=== PATIENT | female | born 1975 | race African-American/Black ===

== ENCOUNTER 2020-01-29 20:04 | Emergency (ER) | payer OTHER, SELFPAY ==
[2020-01-29 20:09] VITALS: BP 127/113; PULSE 77; RESP 16; TEMP 36.7; O2SAT 89
--- NOTE | 2020-01-29 20:16 | PC.NURSE ---
Pt placed on 2L N.C due to low O2.
[2020-01-29 20:20] VITALS: PULSE 94; RESP 18; TEMP 36.9; O2SAT 98
--- NOTE | 2020-01-29 20:26 | ED.EXTPRO ---
HPI - Extremity Problem General Chief complaint: Extremity Problem,Nontraumatic Stated complaint: edwin horse Time Seen by Provider: 01/29/20 20:25 Source: patient Mode of arrival: EMS Limitations: no limitations History of Present Illness HPI Narrative: Pt is a 44 y/o female who presents to the ED, via EMS, with c/o having charley horses that began earlier this afternoon. Pt states that she had a gastric bypass done years ago and has since been seen for this same issue which has contributed to hypokalemia. Pt denies taking any medications for her sx. Pt also reports nausea, but denies fever, chills, abdominal pain, diarrhea, and a cough. Complaint: extremity pain Onset (ago): hour(s) Pain Consistency: constant Location: left, right and lower extremity Relieving factors: nothing Associated symptoms: other (nausea) Related Data Allergies Allergy/AdvReac Type Severity Reaction Status Date / Time No Known Allergies Allergy Verified 01/29/20 20:13 Review of Systems Review of Systems: All systems reviewed & are unremarkable except as noted in HPI and below Constitutional: Constitutional: Denies chills and Denies fever(s) Respiratory: Respiratory: Denies cough Gastrointestinal: Gastrointestinal: Denies abdominal pain, Denies diarrhea and Reports nausea Musculoskeletal: Musculoskeletal: Reports muscle cramps (in BLE) PMFSH Past Medical History Medical History (Updated 01/30/20 @ 01:06 by Chuck Montoya MD) Anemia Anxiety Eczema Gallbladder disease Gallstones HTN (hypertension) Influenza B Migraines UTI (urinary tract infection) Surgical History Surgical History (Updated 01/29/20 @ 20:46 by Kylie Murphy) Hx of cholecystectomy Hx of gastric bypass x2 Hx of tonsillectomy Family History Family History (Updated 01/29/20 @ 20:47 by Kylie Murphy) Mother Hypertension Diabetes mellitus Cancer Father Diabetes mellitus Hypertension Sibling Hypertension Social History Social History Smoking status: Never smoker Gender identity (if verbalized by the patient): Female Exam Narrative: Exam Narrative: GENERAL: Well-appearing, well-nourished, and in no acute distress. HEAD: Normocephalic, atraumatic. EYES: PERRLA and EOMI. ENT: Nares clear, Mucous membranes moist. NECK: Supple. CHEST: Clear to auscultation. No respiratory distress. HEART: Regular rate and rhythm. No murmur heard. Normal peripheral pulses. ABDOMEN: Soft, nontender, nondistended, normal active bowel sounds. EXTREMITIES: Normal range of motion. No edema. SKIN: Warm, dry, no rash. NEURO: No focal deficits. Alert and oriented x3. PSYCH: Normal mood and affect. Course Course Emergency Course: Inform patient about her lab work. We will give her IV potassium. Advised her to continue home medication, follow-up with the primary doctor. Vital Signs Vital signs: Vital Signs Temperature 36.7 C 01/29/20 20:09 Pulse Rate 77 01/29/20 20:09 Respiratory Rate 16 01/29/20 20:09 Blood Pressure 127/113 H 01/29/20 20:09 Pulse Oximetry 89 L 01/29/20 20:09 Temperature 36.9 C 01/29/20 20:20 Pulse Rate 94 01/29/20 20:20 Respiratory Rate 18 01/29/20 20:20 Blood Pressure 127/113 H 01/29/20 20:09 Pulse Oximetry 98 01/29/20 20:20 MDM - Extremity (Nontraumatic) Lab Data Result diagrams: 01/29/20 20:56 01/29/20 20:56 Labs: Lab Results 01/29/20 01/29/20 Range/Units 20:56 20:56 WBC 4.9 (4.5-10.0) K/mm3 RBC 3.77 L (4.2-5.4) M/mm3 Hgb 9.4 L (12.0-15.0) g/dL Hct 30.6 L (37.0-47.0) % MCV 81.2 (80-100) fl MCH 24.9 L (26-34) pg MCHC 30.7 L (32-36) g/dl RDW 22.3 H (11.5-14.5) % Plt Count 276 (150-375) k/mm3 MPV 8.5 (7.4-10.4) fl Immature Gran % (Auto) 0.6 H (0-0.5) % Neut % (Auto) 71.8 (45.5-73.1) % Lymph % (Auto) 19.5 (18.3-44.2) % [place] % (Auto) 6.5 (2.6-8.5) % Eos % (Auto) 0.0 (0-4.4) % Baso % (Auto
[2020-01-29 21:01] LABS: Basophils Absolute Auto 0.1 K/mm3 (0.0-0.1); Basophils Percent Auto 1.6 % (0.2-1.2); Hematocrit 30.6 % (37.0-47.0); Hemoglobin 9.4 g/dL (12.0-15.0); Immature Granulocyte Absolute 0.03 K/mm3 (0.00-0.031); Immature Granulocyte Percent A 0.6 % (0-0.5); Lymphocytes Absolute Auto 0.96 K/mm3 (0.9-3.2); Lymphocytes Percent Auto 19.5 % (18.3-44.2); Mean Corpuscular HGB Conc 30.7 g/dl (32-36); Mean Corpuscular Hemoglobin 24.9 pg (26-34); Mean Corpuscular Volume 81.2 fl (80-100); Mean Platelet Volume 8.5 fl (7.4-10.4); Monocytes Absolute Auto 0.3 K/mm3 (0.1-0.6); Monocytes Percent Auto 6.5 % (2.6-8.5); Neutrophils Absolute Auto 3.5 K/mm3 (1.3-6.7); Neutrophils Percent Auto 71.8 % (45.5-73.1); Platelet Count Result 276 k/mm3 (150-375); Red Blood Count 3.77 M/mm3 (4.2-5.4); Red Cell Distribution Width 22.3 % (11.5-14.5); White Blood Count 4.9 K/mm3 (4.5-10.0)
[2020-01-29 21:16] LABS: Blood Urea Nitrogen 3 mg/dL (7-17); Calcium 8.1 mg/dL (8.4-10.2); Carbon Dioxide 22 mmol/L (22-30); Chloride 96 mmol/L (98-107); Estimated CRCL calculation 124 ml/min; Estimated Glomerular Filt Rate > 60; Glucose 88 mg/dL (65-105); Potassium 2.8 mmol/L (3.4-5.0); Sodium 137 mmol/L (137-145)
[2020-01-29] MEDS: POTASSIUM CHLORIDE 20 MEQ PACKET (FOR LIQUID) 40 MEQ PO (21:54)
--- NOTE | 2020-01-29 22:02 | PC.NURSE ---
notified of new onset of headache.
[2020-01-30] MEDS: ONDANSETRON INJ 4 MG/2 ML VIAL IV PUSH (00:29)
== END 2020-01-30 02:07 | disposition home or self-care (01) ==
PROVIDERS: Emergency Provider Family Medicine; PCP Family Medicine
DX: E87.6 Hypokalemia (principal); D64.9 Anemia, unspecified; I10 Essential (primary) hypertension; Z87.440 Personal history of urinary (tract) infections; Z98.84 Bariatric surgery status
CPT/HCPCS: 36415; 80048; 83735; 85025; 96365; 96366; 96375; 99284; A9270; J2405; J3480

== ENCOUNTER 2020-07-20 15:03 | Emergency (ER) | payer OTHER, SELFPAY ==
[2020-07-20 15:06] VITALS: BP 133/90; PULSE 83; RESP 18; TEMP 36.6; O2SAT 99
--- NOTE | 2020-07-20 15:32 | ECG_ITS ---
Measurements Intervals [place] Rate: 77 P: 50 DE: 136 QRS: -6 QRSD: 86 T: 37 QT: 425 QTc: 481 Interpretive Statements SINUS RHYTHM BORDERLINE ST ABNORMALITY- ANTEROLAT/INF LEADS BASELINE WANDER- I, II, AVR BORDERLINE ECG Electronically Signed On 07-20-2020 16:59:17 CDT by Alan Chavez D.O.
[2020-07-20 15:51] LABS: Basophils Absolute Auto 0.1 K/mm3 (0.0-0.1); Basophils Percent Auto 0.9 % (0.2-1.2); Eosinophils Absolute Auto 0.1 K/mm3 (0-0.3); Eosinophils Percent Auto 0.9 % (0-4.4); Hematocrit 38.7 % (37.0-47.0); Hemoglobin 11.5 g/dL (12.0-15.0); Immature Granulocyte Absolute 0.03 K/mm3 (0.00-0.031); Immature Granulocyte Percent A 0.3 % (0-0.5); Lymphocytes Absolute Auto 3.17 K/mm3 (0.9-3.2); Lymphocytes Percent Auto 31.3 % (18.3-44.2); Mean Corpuscular HGB Conc 29.7 g/dl (32-36); Mean Corpuscular Hemoglobin 22.9 pg (26-34); Mean Corpuscular Volume 77.1 fl (80-100); Mean Platelet Volume 10.3 fl (7.4-10.4); Monocytes Absolute Auto 0.9 K/mm3 (0.1-0.6); Monocytes Percent Auto 9.1 % (2.6-8.5); Neutrophils Absolute Auto 5.8 K/mm3 (1.3-6.7); Neutrophils Percent Auto 57.5 % (45.5-73.1); Platelet Count Result 444 k/mm3 (150-375); Red Blood Count 5.02 M/mm3 (4.2-5.4); Red Cell Distribution Width 16.4 % (11.5-14.5); White Blood Count 10.1 K/mm3 (4.5-10.0)
[2020-07-20] MEDS: ONDANSETRON INJ 4 MG/2 ML VIAL IV PUSH (15:59)
[2020-07-20] MEDS: SODIUM CHLORIDE 0.9% IV 1,000 ML 999 ML IV CONT (15:59)
[2020-07-20 16:02] LABS: Alanine Aminotransferase 12 U/L (4-35); Albumin Level 4.3 g/dL (3.5-5.1); Alkaline Phosphatase 75 U/L (38-126); Anion Gap 19 mmol/L (8-16); Aspartate Amino Transferase 35 U/L (14-36); Blood Urea Nitrogen 29 mg/dL (7-17); Calcium 9.4 mg/dL (8.4-10.2); Carbon Dioxide 24 mmol/L (22-30); Chloride 95 mmol/L (98-107); Estimated CRCL calculation 63 ml/min; Estimated Glomerular Filt Rate > 60; Glucose 74 mg/dL (65-105); Lipase 49 U/L (23-300); Potassium 2.9 mmol/L (3.4-5.0); Sodium 138 mmol/L (137-145)
[2020-07-20 16:30] LABS: Add Urine Microscopic? YES; Appearance Urine Clear (Clear); Bilirubin Urine Negative (Negative); Blood Urine Negative (Negative); Color Urine Yellow (Yellow); Glucose Urine UA Negative (Negative); Ketones Urine 2+ mg/dL (Negative); Leukocyte Esterase Ur Negative LEU/UL (Negative); Mucus Urine Few /lpf; Nitrate Urine Negative (Negative); Protein Urine 1+ mg/dL (Negative); Specific Grav Ur 1.023 (1.001-1.035); Squamous Epithelial Cell Urine Many /hpf (Few)
--- NOTE | 2020-07-20 16:56 | ED.DIZZY ---
HPI - Dizziness General Chief Complaint: Dizziness Stated Complaint: n/v/dizziness Time Seen by Provider: 07/20/20 15:08 Source: patient Mode of arrival: ambulatory Limitations: no limitations History of Present Illness HPI Narrative: 45-year-old with a history of hypertension, anxiety disorder here with complaints of feeling extremely weak and dizzy for past few days. Patient states that she is unable to keep fluids down. She denies any abdominal pain or diarrhea. No history of fever or chills. Denies any COVID exposure. Patient states that she has history of low potassium and anytime it happens she feels extremely weak. MD elicited complaint: other (Feeling weak) Exacerbating factors: nothing Relieving factors: nothing Associated symptoms: nausea and vomiting Related Data Home Medications Medication Instructions Recorded Confirmed ergocalciferol (vitamin D2) 07/20/20 fluoxetine mg 07/20/20 lisinopril 07/20/20 Allergies Allergy/AdvReac Type Severity Reaction Status Date / Time No Known Allergies Allergy Verified 07/20/20 15:09 Review of Systems Review of Systems: All systems reviewed & are unremarkable except as noted in HPI and below Constitutional: Constitutional: Reports as per HPI Eyes: Eyes: Reports as per HPI ENT: Reports system reviewed and no additional complaints, except as documented Cardiovascular: Cardiovascular: Reports no additional cardiovascular complaints Respiratory: Respiratory: Reports as per HPI Gastrointestinal: Gastrointestinal: Reports no additional gastrointestinal complaints Musculoskeletal: Musculoskeletal: Reports no additional musculoskeletal complaints PMFSH Past Medical History Medical History Anemia Anxiety Eczema Gallbladder disease Gallstones HTN (hypertension) Influenza B Migraines UTI (urinary tract infection) Surgical History Surgical History Hx of cholecystectomy Hx of gastric bypass x2 Hx of tonsillectomy Family History Family History Mother Hypertension Diabetes mellitus Cancer Father Diabetes mellitus Hypertension Sibling Hypertension Social History Social History Smoking status: Never smoker Gender identity (if verbalized by the patient): Female Exam Narrative: Exam Narrative: GENERAL: Well-appearing, well-nourished, and in no acute distress. HEAD: Normocephalic, atraumatic. EYES: PERRLA and EOMI. ENT: Nares clear, no rhinorrhea or epistaxis. Mucous membranes moist. NECK: Supple. CHEST: Clear to auscultation. No respiratory distress. HEART: Regular rate and rhythm. No murmur heard. Normal peripheral pulses. ABDOMEN: Soft, nontender, nondistended, normal active bowel sounds. EXTREMITIES: Normal range of motion. No edema. SKIN: Warm, dry, no rash. NEURO: No focal deficits. Alert and oriented x3. PSYCH: Normal mood and affect. Course Vital Signs Vital signs: Vital Signs Temperature 36.6 C 07/20/20 15:06 Pulse Rate 83 07/20/20 15:06 Respiratory Rate 18 07/20/20 15:06 Blood Pressure 133/90 07/20/20 15:06 Pulse Oximetry 99 07/20/20 15:06 Temperature 36.6 C 07/20/20 15:06 Pulse Rate 83 07/20/20 15:06 Respiratory Rate 18 07/20/20 15:06 Blood Pressure 133/90 07/20/20 15:06 Pulse Oximetry 99 07/20/20 15:06 MDM - Dizziness MDM Narrative Medical decision making narrative: With a history of hypokalemia, and nausea vomiting and elect to do CBC chemistry give her fluids and Zofran for nausea. Differential Diagnosis Differential diagnosis: Likely orthostatic hypotension Lab Data Result diagrams: 07/20/20 15:44 07/20/20 15:44 Labs: Lab Results 07/20/20 07/20/20 07/20/20 Range/Units 15:44 15:44 16:20 WBC 10.1 H (4.5-10.0) K/mm3
[2020-07-20] MEDS: KCL 20 MEQ/SW 100 ML 100 ML 50 MEQ IVPB (17:14)
[2020-07-20] MEDS: POTASSIUM CHLORIDE 20 MEQ PACKET (FOR LIQUID) 40 MEQ PO (17:15)
[2020-07-20 19:12] VITALS: BP 137/88; PULSE 71; RESP 19; O2SAT 98
[2020-07-20 19:28] VITALS: BP 127/88; PULSE 79; RESP 19; TEMP 36.2; O2SAT 100
== END 2020-07-20 19:29 | disposition home or self-care (01) ==
PROVIDERS: Emergency Provider Family Medicine; PCP Family Medicine
DX: E87.6 Hypokalemia (principal); R11.2 Nausea with vomiting, unspecified; I10 Essential (primary) hypertension; F41.9 Anxiety disorder, unspecified; D64.9 Anemia, unspecified; Z87.440 Personal history of urinary (tract) infections; Z98.84 Bariatric surgery status; R94.31 Abnormal electrocardiogram [ECG] [EKG]
CPT/HCPCS: 36415; 80053; 81001; 83690; 85025; 87086; 87088; 93005; 96361; 96365; 96366; 96375; 99284; A9270; J2405; J3480; J7030

== ENCOUNTER 2020-07-23 12:56 | Observation (INO) | payer OTHER, SELFPAY ==
[2020-07-23] VITALS (8 sets, daily range): BP systolic 77–123; BP diastolic 51–87; PULSE 72–102; RESP 17–20; TEMP 36.2–36.8; O2SAT 96–100; BMI 25.2
--- NOTE | ~2020-07-23 | XR_ITS ---
XR abdomen/kub 1V 07/23/2020 21:59 INDICATION: Intractable abdominal pain. TECHNIQUE: KUB COMPARISON: 06/21/2016 FINDINGS: Bowel gas pattern is normal. There are surgical changes in the upper abdomen. There is no e vidence of free air, mass, organomegaly, ascites or obstruction. No abnormal calculi are seen. The bones appear intact. IMPRESSION: 1: No acute abdominal abnormality identified. Reviewed, dictated and finalized at location A.
--- NOTE | ~2020-07-23 | XR_ITS ---
EXAMINATION: XR chest 2V EXAM DATE: 07/23/2020 13:51 INDICATION: Weakness and vomiting. TECHNIQUE: Frontal and lateral projections of the chest obtained and reviewed. There is no prior charles dy for comparison. FINDINGS: The lungs are clear. There are no pleural effusions. The cardiomediastinal silhouette is within normal limits. There is no pneumothorax suspected. The bones and soft tissues are unremarkab le. There are cholecystectomy clips. IMPRESSION: No acute cardiopulmonary findings. Reviewed, dictated and finalized at location A.
--- NOTE | 2020-07-23 13:18 | ECG_ITS ---
Measurements Intervals [place] Rate: 90 P: 61 MO: 104 QRS: 23 QRSD: 101 T: 57 QT: 425 QTc: 520 Interpretive Statements SINUS RHYTHM WITH SHORT MO INTERVAL BORDERLINE ST ABNORMALITY- ANTEROLAT/INF LEADS PROLONGED QT INTERVAL ABNORMAL ECG Electronically Signed On 07-23-2020 13:43:00 CDT by Alan Chavez D.O.
[2020-07-23 13:38] LABS: Basophils Absolute Auto 0.1 K/mm3 (0.0-0.1); Eosinophils Percent Auto 0.3 % (0-4.4); Hematocrit 40.8 % (37.0-47.0); Hemoglobin 12.4 g/dL (12.0-15.0); Immature Granulocyte Absolute 0.03 K/mm3 (0.00-0.031); Immature Granulocyte Percent A 0.3 % (0-0.5); Lymphocytes Absolute Auto 3.23 K/mm3 (0.9-3.2); Lymphocytes Percent Auto 30.9 % (18.3-44.2); Mean Corpuscular HGB Conc 30.4 g/dl (32-36); Mean Corpuscular Hemoglobin 23.4 pg (26-34); Mean Corpuscular Volume 76.8 fl (80-100); Mean Platelet Volume 10.4 fl (7.4-10.4); Monocytes Absolute Auto 0.6 K/mm3 (0.1-0.6); Monocytes Percent Auto 5.8 % (2.6-8.5); Neutrophils Absolute Auto 6.4 K/mm3 (1.3-6.7); Neutrophils Percent Auto 61.7 % (45.5-73.1); Platelet Count Result 559 k/mm3 (150-375); Red Blood Count 5.31 M/mm3 (4.2-5.4); Red Cell Distribution Width 16.7 % (11.5-14.5); White Blood Count 10.4 K/mm3 (4.5-10.0)
[2020-07-23] MEDS: SODIUM CHLORIDE 0.9% IV 1,000 ML 999 ML (13:39)
[2020-07-23 13:51] LABS: Alanine Aminotransferase 14 U/L (4-35); Albumin Level 4.5 g/dL (3.5-5.1); Alkaline Phosphatase 79 U/L (38-126); Anion Gap 21 mmol/L (8-16); Aspartate Amino Transferase 36 U/L (14-36); Blood Urea Nitrogen 35 mg/dL (7-17); Calcium 9.9 mg/dL (8.4-10.2); Carbon Dioxide 22 mmol/L (22-30); Chloride 98 mmol/L (98-107); Estimated CRCL calculation 41 ml/min; Estimated Glomerular Filt Rate 50; Glucose 107 mg/dL (65-105); Potassium 3.2 mmol/L (3.4-5.0); Sodium 141 mmol/L (137-145)
--- NOTE | 2020-07-23 14:15 | ED.WEAKNESS ---
HPI - Weakness General Chief complaint: Weakness Stated complaint: near syncope Time Seen by Provider: 07/23/20 13:36 History of Present Illness HPI Narrative: Patient is a 45-year-old female who presents ER with weakness. Patient reports she has been vomiting over the last week. Has history of gastric bypass that causes her to have recurrent hypokalemia. Patient was seen in the ER couple days ago with a potassium of 2.9 received supplementation. Patient reports she still cannot keep food or water down. She became very fatigued at work and thought she may collapse. Related Data Home Medications Medication Instructions Recorded Confirmed ergocalciferol (vitamin D2) 1,250 mcg PO WEEKLY 07/20/20 07/23/20 fluoxetine 10 mg PO DAILY 07/20/20 07/23/20 lisinopril 10 mg PO DAILY 07/20/20 07/23/20 omeprazole 20 mg PO DAILY 07/23/20 07/23/20 Allergies Allergy/AdvReac Type Severity Reaction Status Date / Time No Known Allergies Allergy Verified 07/23/20 13:16 Review of Systems Review of Systems: All systems reviewed & are unremarkable except as noted in HPI and below Constitutional: Constitutional: Denies chills, Denies fever(s) and Reports weakness ENT: Denies nasal congestion and Denies sore throat Cardiovascular: Cardiovascular: Denies chest pain and Denies radiating jaw, neck or arm pain Respiratory: Respiratory: Denies cough, Denies dyspnea and Denies wheezing Gastrointestinal: Gastrointestinal: Denies abdominal pain, Denies constipation, Denies diarrhea, Reports nausea and Reports vomiting Neurologic: Denies focal weakness and Denies numbness PMFSH Family History Family History (Updated 07/23/20 @ 17:06 by Ivette Hastings RN) Mother Diabetes mellitus Cancer Hypertension Colon cancer Father Diabetes mellitus Hypertension FH: CABG (coronary artery bypass surgery) Sibling Hypothyroid Hypertension Social History Social History Smoking status: Never smoker Alcohol intake: never Substance use: never Gender identity (if verbalized by the patient): Female Spiritual care concerns: No Exam Narrative: Exam Narrative: GENERAL: Well-appearing, well-nourished, and in no acute distress. HEAD: Normocephalic, atraumatic. ENT: Mucous membranes moist. CHEST: Clear to auscultation. No respiratory distress. HEART: Regular rate and rhythm. Normal peripheral pulses. ABDOMEN: Soft, nontender, nondistended. EXTREMITIES: Normal range of motion. No edema. SKIN: Warm, dry, no rash. NEURO: Alert and oriented x3. Course Course Emergency Course: Admitted to hospital service for acute kidney injury. Vital Signs Vital signs: Vital Signs Temperature 97.1 F L 07/23/20 13:13 Pulse Rate 102 H 07/23/20 13:13 Respiratory Rate 17 07/23/20 13:13 Blood Pressure 77/51 L 07/23/20 13:13 Pulse Oximetry 100 07/23/20 13:13 Temperature 98.2 F 07/23/20 20:00 Pulse Rate 78 07/23/20 20:00 Respiratory Rate 20 07/23/20 20:00 Blood Pressure 123/87 07/23/20 20:00 Pulse Oximetry 100 07/23/20 20:00 MDM - Weakness Lab Data Result diagrams: 07/23/20 13:33 07/23/20 20:52 Labs: Lab Results 07/23/20 07/23/20 Range/Units 13:33 13:33 WBC 10.4 H (4.5-10.0) K/mm3 RBC 5.31 (4.2-5.4) M/mm3 Hgb 12.4 (12.0-15.0) g/dL Hct 40.8 (37.0-47.0) % MCV 76.8 L (80-100) fl MCH 23.4 L (26-34) pg MCHC 30.4 L (32-36) g/dl RDW 16.7 H (11.5-14.5) % Plt Count 559 H (150-375) k/mm3 MPV 10.4 (7.4-10.4) fl Immature Gran % (Auto) 0.3 (0-0.5) % Neut % (Auto) 61.7 (45.5-73.1) % Lymph % (Auto) 30.9 (18.3-44.2) % [place] % (Auto) 5.8 (2.6-8.5) % Eos % (Auto) 0.3 (0-4.4) % Baso % (Auto) 1.0 (0.2-1.2) % Lymph # (Auto) 3.23 H (0.9-3.2) K/mm3 [place] # (Auto) 0.6 (0.1-0.6) K/mm3 Eos # (Auto) 0.0 (0-0.3) K/mm3 Baso # (Auto) 0.1 (0.0-0.1) K/mm3 Abs Immat
--- NOTE | 2020-07-23 16:55 | PC.NURSE ---
This patient, Nara Adair, was admitted to [facility] Surg Room 300-01. Patient/family oriented to hospital policies and general routines including ID bracelet, bed and alarms, visiting hours, pain management, procedures, bathroom and other care routines, personal items, smoking policy, room service/diet, and visiting hours. Valuables list has been completed.Report received from Kasie DELGADO. Information on how to activate the Rapid Response Team has been discussed. Patient/Family are encouraged to report perceived risks to care and to ask questions if they do not understand what they are told or what they should do.
[2020-07-23] MEDS: SODIUM CHLORIDE 0.9% IV 1,000 ML 125 ML IV CONT (16:56)
[2020-07-23] MEDS: PROMETHAZINE HCL 25 MG/ML AMPUL 12.5 MG IV PUSH (17:35)
[2020-07-23] MEDS: MORPHINE SULFATE 4 MG/ML INJ IV PUSH (18:02)
--- NOTE | 2020-07-23 21:00 | PM.IMHP ---
H&P: HPI History of Present Illness Date/Time: 07/23/20 21:00 Chief complaint: Nausea and vomiting. Narrative: Nara Adair is a 45-year-old female status post gastric bypass x2 with history of incarcerated ventral hernia secondary to adhesions to presented to the emergency department earlier today for evaluation of nausea, vomiting, and weakness. For the last 7 days or so she has had frequent nausea and vomiting. She has also been suffering from GERD for about the same amount of time with an increase in belching. At times it feels like food sometimes gets stuck in her esophagus. Her bowel movement this morning was a bit loose, but otherwise unremarkable. While at work today she began feeling incredibly weak and had a near syncopal episode, prompting the visit to the emergency department. At the time my evaluation she feels somewhat better after receiving IV fluids and antiemetics. She is not having any significant abdominal pain. She denies sick contacts, concerns for aspiration, cough, hematemesis, melena, and hematochezia. Review of Systems Review of Systems: Narrative: 12 systems were reviewed with pertinent positives and negatives as per HPI. No fever, chills, or sweats. She denies sinus congestion, rhinorrhea, otalgia, and odynophagia. No recent travel or sick contacts. She denies cough. She felt a bit short of breath this morning at the time of her near syncopal episode, but that has resolved. No chest pain or pleuritic pain. She denies lower extremity edema. Except as documented, all other systems were reviewed and are negative. [facility] Past Medical History Medical History (Updated 07/24/20 @ 01:28 by Masha Yeung PA-C) Anemia Anxiety Cystic mesothelioma (~05/2016) Eczema Migraines Surgical History Surgical History (Updated 07/24/20 @ 01:25 by Masha Yeung PA-C) History of excision of lesion Solar lentigo from the left lateral canthus. History of gastric bypass (~2010) x 2. History of laparoscopic cholecystectomy (~2003) History of tonsillectomy History of ventral hernia repair (~05/2016) Incarcerated ventral hernia repair with extensive adhesiolysis. 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 Family History Family History Mother Diabetes mellitus Cancer Hypertension Colon cancer Father Diabetes mellitus Hypertension FH: CABG (coronary artery bypass surgery) Sibling Hypothyroid Hypertension Social History Social History (Updated 07/24/20 @ 01:26 by Masha Yeung PA-C) Social History: the patient is and lives in [place] with her 2 children. 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 She wishes to be a full code. Her father, Maikel Adair, as her surrogate decision maker. Spiritual care concerns: No Meds Home Medications and Allergies Home Medications Medication Instructions Recorded Confirmed Type ergocalciferol (vitamin D2) 1,250 mcg PO WEEKLY 07/20/20 07/23/20 History fluoxetine 10 mg PO DAILY 07/20/20 07/23/20 History lisinopril 10 mg PO DAILY 07/20/20 07/23/20 History ondansetron HCl [Zofran] 4 mg PO Q8H PRN #10 tablet 07/20/20 07/23/20 Rx omeprazole 20 mg PO DAILY 07/23/20 07/23/20 History Allergies Allergy/AdvReac Type Severity Reaction Status Date / Time No Known Allergies Allergy Verified 07/23/20 13:16 Vital Signs Vital Signs - 24 hr 07/23/20 13:13 07/23/20 13:23 07/23/20 13:39 Temperature 97.1 F L Pulse Rate 102 H 97 80 Respiratory Rate 17 20 Blood Pressure 77/51 L 80/61 L Pulse Oximetry 100 100 07/23/20 13:43 07/23/20 14:33 07/23/20 15:38 Temperature Pulse Rate 85 84 72 Respiratory Rate 20 20 20 Blood Pressure 94/67 L 106/75 110/76 Pulse Oximetry 100 96 98 07/23/20 17:25 07/23/20 20:00 Temperature 97
[2020-07-23 21:10] LABS: Anion Gap 16 mmol/L (8-16); Blood Urea Nitrogen 32 mg/dL (7-17); Calcium 8.8 mg/dL (8.4-10.2); Carbon Dioxide 22 mmol/L (22-30); Chloride 99 mmol/L (98-107); Estimated CRCL calculation 57 ml/min; Estimated Glomerular Filt Rate > 60; Glucose 74 mg/dL (65-105); Potassium 3.2 mmol/L (3.4-5.0); Sodium 137 mmol/L (137-145)
[2020-07-23 21:11] LABS: Magnesium 1.6 mg/dL (1.6-2.3)
[2020-07-23 23:05] LABS: Add Urine Microscopic? YES; Appearance Urine Cloudy (Clear); Bacteria Urine Trace /hpf; Bilirubin Urine 1+ (Negative); Blood Urine 1+ (Negative); Color Urine Amber (Yellow); Glucose Urine UA Negative (Negative); Ketones Urine 2+ mg/dL (Negative); Leukocyte Esterase Ur 1+ LEU/UL (Negative); Mucus Urine Moderate /lpf; Nitrate Urine Negative (Negative); Protein Urine 2+ mg/dL (Negative); Specific Grav Ur 1.025 (1.001-1.035); Squamous Epithelial Cell Urine Many /hpf (Few); WBC Urine 21-30 /hpf
[2020-07-24] VITALS (9 sets, daily range): BP systolic 111–133; BP diastolic 64–87; PULSE 60–106; RESP 16–18; TEMP 36.3–36.6; O2SAT 94–100; BMI 26.4
--- NOTE | 2020-07-24 00:35 | PC.NURSE ---
pt states she has not been able to urinate since she has been on the floor and has has alot of ivf. denies feeling distended nor pain or discomfort. this rn performed a bladder scan that showed 151ml. post scan pt states she does have an urge to go to b/r and was able to void 151 cc urine.
[2020-07-24] MEDS: SODIUM CHLORIDE 0.9% IV 1,000 ML 125 ML IV CONT (01:17)
[2020-07-24] MEDS: KCL 20 MEQ/SW 100 ML 100 ML 50 MEQ IVPB (02:25)
--- NOTE | 2020-07-24 07:00 | ECG_ITS ---
Measurements Intervals [place] Rate: 64 P: 55 NV: 151 QRS: 22 QRSD: 94 T: 33 QT: 475 QTc: 491 Interpretive Statements SINUS RHYTHM CANNOT RULE OUT SEPTAL INFARCT, AGE INDETERMINATE BORDERLINE ST ABNORMALITY- ANTERIOR LEADS PROLONGED QT INTERVAL ABNORMAL ECG Electronically Signed On 07-24-2020 10:21:23 CDT by Alan Chavez D.O.
[2020-07-24 07:09] LABS: Iron 43 ug/dL (37-170)
[2020-07-24 07:19] LABS: Percent Iron Saturation 12 % (20-50)
[2020-07-24 07:33] LABS: Potassium 3.5 mmol/L (3.4-5.0)
[2020-07-24 07:34] LABS: Anion Gap 11 mmol/L (8-16); Blood Urea Nitrogen 28 mg/dL (7-17); Calcium 8.5 mg/dL (8.4-10.2); Carbon Dioxide 25 mmol/L (22-30); Chloride 103 mmol/L (98-107); Estimated CRCL calculation 70 ml/min; Estimated Glomerular Filt Rate > 60; Glucose 64 mg/dL (65-105); Magnesium 1.6 mg/dL (1.6-2.3); Sodium 139 mmol/L (137-145)
[2020-07-24 07:35] LABS: Folic Acid 7.4 ng/mL (2.76->20)
[2020-07-24] MEDS: PANTOPRAZOLE SODIUM IV 40 MG VIAL IV PUSH ×2 (08:37→20:30)
--- NOTE | 2020-07-24 11:51 | PCNSR ---
On 07/24/20, the student, Philip Beckford, provided care and completed [facility] documentation on this patient. I have reviewed the student's documentation and agree with the findings.
[2020-07-24] MEDS: SODIUM CHLORIDE 0.9% IV 1,000 ML 75 ML IV CONT (12:57)
--- NOTE | 2020-07-24 14:38 | WPDGICN ---
Assessment and Plan Assessment and plan (1) Nausea and vomiting: Code(s): R11.2 - Nausea with vomiting, unspecified Status: Acute Assessment and Plan: will proceed with egd, assess if esophagitis, ulcer, etc. Continue with medical care, fluids, antiemetics prn tolerating liquid diet (2) Dehydration: Code(s): E86.0 - Dehydration Status: Acute Assessment and Plan: treated (3) Acute kidney injury: Code(s): N17.9 - Acute kidney failure, unspecified Status: Acute Assessment and Plan: resolved after medical care (4) GERD (gastroesophageal reflux disease): Code(s): K21.9 - Gastro-esophageal reflux disease without esophagitis Status: Acute (5) Gastric bypass status for obesity: Code(s): Z98.84 - Bariatric surgery status Status: Acute Assessment and Plan: she also is planning to see her surgeon again for follow-up, probably this could be contributing to her symptoms GI Consult Note Consult date/time: 07/24/20 14:38 Reason for consult: N/V HPI: Nara Adair is a 45 year old female with history of gastric bypass about 10 years ago for bariatric purpose, apparently had complication and required another one 2 months afterward here with almost 3 weeks of food coming back up after eating, heartburn for which has been using mylanta and Mague-seltzer but last week quite more symptomatic, unable to eat much with vomiting. She came after feeling lightheaded. Blood work showed creatinine 1.4 (normalized after fluids today), k 3.2. She is not taking ppi. She does not remember having EGD. Review of Systems Constitutional: Constitutional: Denies chills and Denies headache(s) Eyes: Eyes: Denies blurry vision ENT: Reports Normal hearing present, Denies headache(s) and Denies neck pain Cardiovascular: Cardiovascular: Denies chest pain, Reports lightheadedness and Denies dyspnea Respiratory: Respiratory: Denies dyspnea Gastrointestinal: Gastrointestinal: Reports heartburn, Reports nausea and Reports vomiting Genitourinary: Genitourinary: Denies dysuria Musculoskeletal: Musculoskeletal: Denies neck pain Integumentary/Breasts: Skin/Breast: Denies dry skin Neurologic: Reports Normal hearing present and Denies headache(s) Psychiatric: Psychiatric: Denies anxiety Endocrine: Endocrine: Denies change in body appearance Hematologic/Lymphatic: Hematologic/Lymphatic: Denies easy bleeding Allergic/Immunologic: Allergic/Immunologic: Denies urticaria PMFSH Past Medical History Medical History (Updated 07/24/20 @ 14:43 by Sidney Webster MD) Anemia Anxiety Cystic mesothelioma (~05/2016) Eczema GERD (gastroesophageal reflux disease) Migraines Surgical History Surgical History (Updated 07/24/20 @ 14:43 by Sidney Webster MD) Gastric bypass status for obesity History of excision of lesion Solar lentigo from the left lateral canthus. History of gastric bypass (~2010) x 2. History of laparoscopic cholecystectomy (~2003) History of tonsillectomy History of ventral hernia repair (~05/2016) Incarcerated ventral hernia repair with extensive adhesiolysis. 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 Family History Family History Mother Diabetes mellitus Cancer Hypertension Colon cancer Father Diabetes mellitus Hypertension FH: CABG (coronary artery bypass surgery) Sibling Hypothyroid Hypertension Social History Social History (Updated 07/24/20 @ 01:26 by Masha Yeung PA-C) Social History: the patient is and lives in [place] with her 2 children. 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 She wishes to be a full code. Her father, Maikel Adair, as her surrogate decision maker. Spiritual care
[2020-07-24] MEDS: ACETAMINOPHEN 325 MG TABLET 650 MG PO (15:27)
--- NOTE | 2020-07-24 15:33 | PM.IMPN ---
Progress Note: A&P Assessment and Plan (1) Nausea and vomiting: Code(s): R11.2 - Nausea with vomiting, unspecified Status: Acute Assessment and Plan: May be related to dysphagia or possible esophagitis/gastritis. Going for an EGD in am. IV fluids and antiemetics as needed. Start PPI. KUB shows an unremarkable bowel gas pattern. (2) Acute kidney injury: Code(s): N17.9 - Acute kidney failure, unspecified Status: Acute Assessment and Plan: [place] to be due to dehydration given poor oral intake and ongoing vomiting. Her renal function is back to normal. (3) Dehydration: Code(s): E86.0 - Dehydration Status: Acute Assessment and Plan: Continue supportive therapy. (4) Dysphagia: Code(s): R13.10 - Dysphagia, unspecified Status: Acute Assessment and Plan: She is going for an EGD tomorrow.. (5) Hypokalemia: Code(s): E87.6 - Hypokalemia Status: Acute Assessment and Plan: Potassium will be replaced and monitored. Subjective Date/time seen: Feeling better but still nauseated, not vomiting anymore. 08/26/20 15:33 Review of Systems Review of Systems: All systems reviewed & are unremarkable except as noted in HPI and below Exam Const: General: comfortable and no acute distress Eyes: Pupils: Equal, round and reactive pupils present Neck: Neck: supple and no JVD Resp: Auscultation: clear to auscultation bilaterally Cardio: Rate: regular rate Rhythm: regular rhythm GI: Auscultation: normal bowel sounds Other: No tenderness, no organomegaly. Skin: General skin exam: no rashes or lesions noted Neuro: Speech: normal speech Motor exam (neuro): 5/5 motor strength present throughout and Normal motor muscle tone present throughout Sensory Exam: normal sensation Extrem: General: normal to inspection Objective Data Vital Signs Vital Signs: Vital Signs - 24 hr 07/23/20 15:38 07/23/20 17:25 07/23/20 20:00 Temperature 97.9 F 98.2 F Pulse Rate 72 73 78 Respiratory Rate 20 18 20 Blood Pressure 110/76 113/66 123/87 Pulse Oximetry 98 98 100 07/24/20 00:00 07/24/20 02:30 07/24/20 04:00 Temperature 97.9 F 97.3 F L Pulse Rate 60 65 66 Respiratory Rate 18 18 Blood Pressure 111/64 112/68 Pulse Oximetry 100 94 07/24/20 08:00 07/24/20 12:00 Temperature Pulse Rate 67 69 Respiratory Rate Blood Pressure Pulse Oximetry Intake/Output Intake/Output: Intake & Output 07/21/20 07/22/20 07/23/20 07/24/20 23:59 23:59 23:59 23:59 Intake Total 1000 3400 Output Total 350 Balance 1000 3050 Meds/Results Medications: Active Medications Generic Name Dose Route Start Last Admin Trade Name Freq PRN Reason Stop Dose Admin Acetaminophen 650 mg 07/23/20 16:04 07/24/20 15:27 Tylenol Tablet PO 650 mg Q4H PRN Administration Mild Pain (1-3) or Fever Fluoxetine HCl 10 mg 07/24/20 09:00 Prozac PO DAILY VERONICA Sodium Chloride 1,000 mls @ 75 mls/hr 07/23/20 16:05 07/24/20 12:59 Normal Saline Iv IV CONT Infused .[id number] VERONICA Infusion Pantoprazole Sodium 40 mg 07/24/20 09:00 07/24/20 08:37 Protonix Iv IV PUSH 40 mg Q12HR VERONICA Administration Promethazine HCl 12.5 mg 07/23/20 16:04 07/23/20 17:35 Phenergan Inj IV PUSH 12.5 mg Q6H PRN Administration Nausea Radiology Results: ITS Impressions Chest X-Ray 07/23/20 13:52 IMPRESSION: No acute cardiopulmonary findings. Abdomen X-Ray 07/23/20 22:04 IMPRESSION: 1: No acute abdominal abnormality identified. Labs Labs: Laboratory Results - last 24 hr 07/23/20
[2020-07-24] MEDS: ACETAMINOPHEN ELIXIR 325 MG/10.15 ML UDC 650 MG PO (18:26)
[2020-07-25] VITALS (11 sets, daily range): BP systolic 105–121; BP diastolic 72–86; PULSE 66–119; RESP 15–23; TEMP 36.4–36.6; O2SAT 94–100
[2020-07-25] MEDS: SODIUM CHLORIDE 0.9% IV 1,000 ML 75 ML IV CONT (03:13)
[2020-07-25 06:29] LABS: Basophils Absolute Auto 0.1 K/mm3 (0.0-0.1); Basophils Percent Auto 0.9 % (0.2-1.2); Eosinophils Absolute Auto 0.1 K/mm3 (0-0.3); Eosinophils Percent Auto 1.5 % (0-4.4); Hematocrit 33.4 % (37.0-47.0); Immature Granulocyte Absolute 0.01 K/mm3 (0.00-0.031); Immature Granulocyte Percent A 0.2 % (0-0.5); Lymphocytes Absolute Auto 2.05 K/mm3 (0.9-3.2); Lymphocytes Percent Auto 37.5 % (18.3-44.2); Mean Corpuscular HGB Conc 29.9 g/dl (32-36); Mean Corpuscular Hemoglobin 23.5 pg (26-34); Mean Corpuscular Volume 78.4 fl (80-100); Mean Platelet Volume 10.4 fl (7.4-10.4); Monocytes Absolute Auto 0.5 K/mm3 (0.1-0.6); Monocytes Percent Auto 9.3 % (2.6-8.5); Neutrophils Absolute Auto 2.8 K/mm3 (1.3-6.7); Neutrophils Percent Auto 50.6 % (45.5-73.1); Platelet Count Result 286 k/mm3 (150-375); Red Blood Count 4.26 M/mm3 (4.2-5.4); Red Cell Distribution Width 16.6 % (11.5-14.5); White Blood Count 5.5 K/mm3 (4.5-10.0)
[2020-07-25 06:46] LABS: Hypochromasia 1+ (NORMAL); Platelet Estimate Adequate (Adequate)
[2020-07-25 06:54] LABS: Anion Gap 14 mmol/L (8-16); Blood Urea Nitrogen 19 mg/dL (7-17); Calcium 8.4 mg/dL (8.4-10.2); Carbon Dioxide 19 mmol/L (22-30); Chloride 106 mmol/L (98-107); Estimated CRCL calculation 80 ml/min; Estimated Glomerular Filt Rate > 60; Glucose 55 mg/dL (65-105); Sodium 139 mmol/L (137-145)
[2020-07-25] MEDS: DEXTROSE 50% 25 GM/50 ML SYRINGE IV PUSH ×5 (07:12→17:38)
[2020-07-25 07:37] LABS: Glucose Point of Care 124 (65-105)
[2020-07-25 07:37] LABS: Glucose Point of Care 46 (65-105)
[2020-07-25] MEDS: PANTOPRAZOLE SODIUM IV 40 MG VIAL IV PUSH (08:27)
--- NOTE | 2020-07-25 10:17 | WPDANESEPPF ---
Anes - Initial Pre Proc Eval Procedure: Operation Date: 07/25/20 12:00 Proposed Procedures p Esophagogastroduodenoscopy - Sidney Webster MD Date/Time: 07/25/20 10:17 Surgeon: John Nolan PA-C Pre Op Diagnosis: Nausea and vomiting. Patient Data Age: 45 Gender: F Height: 5 ft 5 in Weight: 71.2 kg Last Vital Signs Temp 97.6 F 07/25/20 06:00 Pulse 86 07/25/20 07:40 Resp 20 07/25/20 06:00 BP 106/76 07/25/20 06:00 Pulse Ox 100 07/25/20 06:00 Allergies Allergy/AdvReac Type Severity Reaction Status Date / Time No Known Allergies Allergy Verified 07/25/20 11:26 Home Medications Medication Instructions Recorded Confirmed Type ergocalciferol (vitamin D2) 1,250 mcg PO WEEKLY 07/20/20 07/23/20 History fluoxetine 10 mg PO DAILY 07/20/20 07/23/20 History lisinopril 10 mg PO DAILY 07/20/20 07/23/20 History ondansetron HCl [Zofran] 4 mg PO Q8H PRN #10 tablet 07/20/20 07/23/20 Rx omeprazole 20 mg PO DAILY 07/23/20 07/23/20 History Laboratory Tests 07/25/20 07/25/20 07/25/20 06:09 06:09 07:06 WBC 5.5 K/mm3 K/mm3 (4.5-10.0) RBC 4.26 M/mm3 M/mm3 (4.2-5.4) Hgb 10.0 g/dL L g/dL (12.0-15.0) Hct 33.4 % L % (37.0-47.0) MCV 78.4 fl L fl (80-100) MCH 23.5 pg L pg (26-34) MCHC 29.9 g/dl L g/dl (32-36) RDW 16.6 % H % (11.5-14.5) Plt Count 286 k/mm3 k/mm3 (150-375) MPV 10.4 fl fl (7.4-10.4) Immature Gran % (Auto) 0.2 % % (0-0.5) Neut % (Auto) 50.6 % % (45.5-73.1) Lymph % (Auto) 37.5 % % (18.3-44.2) [place] % (Auto) 9.3 % H % (2.6-8.5) Eos % (Auto) 1.5 % % (0-4.4) Baso % (Auto) 0.9 % % (0.2-1.2) Lymph # (Auto) 2.05 K/mm3 K/mm3 (0.9-3.2) [place] # (Auto) 0.5 K/mm3 K/mm3 (0.1-0.6) Eos # (Auto) 0.1 K/mm3 K/mm3 (0-0.3) Baso # (Auto) 0.1 K/mm3 K/mm3 (0.0-0.1) Abs Immat Gran (auto) 0.01 K/mm3 K/mm3 (0.00-0.031) Absolute Neuts (auto) 2.8 K/mm3 K/mm3 (1.3-6.7) Absolute Nucleated RBC 0.0 K/mm3 K/mm3 (0.0-0.012) Nucleated RBC % 0.0 % % (0.0-0.2) Platelet Estimate Adequate (Adequate) Hypochromasia 1+ (NORMAL) Sodium 139 mmol/L mmol/L (137-145) Potassium 3.0 mmol/L L mmol/L (3.4-5.0) Chloride 106 mmol/L mmol/L (98-107) Carbon Dioxide 19 mmol/L L mmol/L (22-30) Anion Gap 14 mmol/L mmol/L (8-16) BUN 19 mg/dL H mg/dL (7-17) Creatinine 0.70 mg/dL mg/dL (0.7-1.0) Estim Creat Clear Calc 80 ml/min ml/min Estimated GFR > 60 (59 - ) Glucose 55 mg/dL L* mg/dL (65-105) POC Capillary Glucose 46 mg/dl L* mg/dl (65-105) Calcium 8.4 mg/dL mg/dL (8.4-10.2) 07/25/20 07:32 WBC RBC Hgb Hct MCV MCH MCHC RDW Plt Count MPV Immature Gran % (Auto) Neut % (Auto) Lymph % (Auto) [place] % (Auto) Eos % (Auto) Baso % (Auto) Lymph # (Auto) [place] # (Auto) Eos # (Auto) Baso # (Auto) Abs Immat Gran (auto) Absolute Neuts (auto) Absolute Nucleated RBC Nucleated RBC % Platelet Estimate Hypochromasia Sodium Potassium Chloride Carbon Dioxide Anion Gap BUN Creatinine Estim Creat Clear Calc Estimated GFR Glucose POC Capillary Glucose 124 mg/dl H mg/dl (65-105) Calcium Patient hx anesthesia problems: none Family hx anesthesia problems: none [facility] Past Medical History Medical History (Updated 07/24/20 @ 14:43 by Sidney Webster MD) Anemia Anxiety Cystic mesothelioma (~05/2016) Eczema GERD (gastroesophageal reflux disease) Migrai
[2020-07-25] MEDS: LACTATED RINGERS 1,000 ML 150 ML IV CONT (11:27)
--- NOTE | 2020-07-25 11:42 | PC.NURSE ---
To GI Lab per w/c, IV on standby. Report given to DANNY.
[2020-07-25 11:45] LABS: Glucose Point of Care < 20 (65-105)
[2020-07-25 11:45] LABS: Glucose Point of Care 54 (65-105)
[2020-07-25] MEDS: BENZOCAINE (*SP) 60 ML SPRAY CAN (HURRICAINE) 1 SPRAY MUCOUS MEM (12:12)
[2020-07-25 13:12] LABS: Glucose Point of Care 53 (65-105)
[2020-07-25 13:12] LABS: Glucose Point of Care 74 (65-105)
--- NOTE | 2020-07-25 13:36 | PC.NURSE ---
Returned from GI Lab. Report received from Bob DELGADO. awake and alert, remains NPO at present, voices no c/o's. John MOYA notified of return.
--- NOTE | 2020-07-25 14:10 | PM.IMPN ---
Progress Note: A&P Assessment and Plan (1) Gastrojejunal anastomotic stricture: Code(s): K91.89 - Other postprocedural complications and disorders of digestive system Status: Acute Assessment and Plan: With gastric outlet obstruction as noted on EGD. GI following and recommends transfer to bariatric center. Will attempt to transfer to Dr. Villanueva at [facility]; patient okay for transfer to [facility] if need be. Monitor NPO per GI rec Will do D5w/.45%NS for now Monitor closely [facility] transfer line contacted. Spoke with Dr. Glez at [facility] transfer [facility] who will try to reach Dr. Villanueva for possible transfer Await call back from [facility] for acceptance (2) Nausea and vomiting: Code(s): R11.2 - Nausea with vomiting, unspecified Status: Acute Assessment and Plan: Likely due to above. Continue IVF (3) Acute kidney injury: Code(s): N17.9 - Acute kidney failure, unspecified Status: Acute Assessment and Plan: Resolved with IVF. [place] to be due to dehydration given poor oral intake and ongoing vomiting. Cr 0.70 today Monitor (4) Dehydration: Code(s): E86.0 - Dehydration Status: Acute Assessment and Plan: Continue supportive therapy. (5) Dysphagia: Code(s): R13.10 - Dysphagia, unspecified Status: Acute Assessment and Plan: EGD as stated above. (6) Hypokalemia: Code(s): E87.6 - Hypokalemia Status: Acute Assessment and Plan: K 3.0 today. Replaced with 40 KCl IV today Will start IVF with 20 mEq KCl in d5w/.45%NS Monitor Subjective Date/time seen: 07/25/20 14:10 Interval history: Patient is a 45 yo F status post gastric bypass x2 with history of incarcerated ventral hernia secondary to adhesions who is here for evaluation of N/V and finding of severe gastric outlet obstruction with severe gastrojejunal anastomosis stricture. Patient states she feels okay today; no n/v currently. Denies f/c/s, headaches, dizziness, lightheadedness, cp/palpitations, sob/cough, abd pain, changes in BMs, dysuria, hematuria, cloudy urine, calf pain/swelling. We discussed the EGD results in detail with GI's recommendation of transfer to outside facility (to her Bariatric Surgeon preferably). Patient states she had an appointment with Dr. Noland today and prefers to be transferred to [facility] where she had her procedure done 10 years ago. Spoke to Dr. Bhandari (from [facility] bariatric surgery service) who states the program has since closed at [facility] and recommended calling Dr. Noland or Dr. Kingsley Turner both at [facility]. Patient states if she cannot be transferred to one of their servicing hospitals, then she would prefer [facility]. Review of Systems Review of Systems: All systems reviewed & are unremarkable except as noted in HPI and below Exam Narrative: Exam Narrative: General: Patient sitting upright on side of bed in no acute distress. Family in room at time of visit HEENT: Normocephalic, EOMI, oral mucosa moist. Cardiovascular: Rate and rhythm are regular. No notable murmur, rub, or gallop. Respiratory: Lungs clear to auscultation all juárez. Non-labored breathing. Abdomen: Soft, non-tender, non-distended, no BS appreciated Extremities: Peripheral pulses intact. No edema. Neuro: No focal neurological deficits. Speech is clear. Objective Data Vital Signs Vital Signs: Last Vital Signs Temp 97.7 F 07/25/20 11:33 Pulse 83 07/25/20 12:51 Resp 15 07/25/20 12:51 BP 115/83 07/25/20 12:51 Pulse Ox 99 07/25/20 12:51 Intake/Output Intake/Output: Inta
[2020-07-25] MEDS: KCL 20 MEQ/D5/0.45% SOD CHL 1,000 ML 75 ML IV CONT (16:15)
[2020-07-25 17:07] LABS: Glucose Point of Care 63 (65-105)
[2020-07-25 17:18] LABS: Partial Thromboplastin Time 29.8 SECONDS (22.3-36.8)
[2020-07-25 17:20] LABS: Alanine Aminotransferase 10 U/L (4-35); Alkaline Phosphatase 51 U/L (38-126); Anion Gap 10 mmol/L (8-16); Aspartate Amino Transferase 23 U/L (14-36); Bilirubin,Total 0.5 mg/dL (0.2-1.3); Blood Urea Nitrogen 15 mg/dL (7-17); Calcium 8.5 mg/dL (8.4-10.2); Carbon Dioxide 24 mmol/L (22-30); Chloride 107 mmol/L (98-107); Estimated CRCL calculation 92 ml/min; Estimated Glomerular Filt Rate > 60; Glucose 76 mg/dL (65-105); Magnesium 1.5 mg/dL (1.6-2.3); Potassium 3.1 mmol/L (3.4-5.0); Sodium 141 mmol/L (137-145)
[2020-07-25 17:24] LABS: CRP < 0.5 mg/dL (<1.0)
[2020-07-25 17:27] LABS: Transferrin 233 mg/dL (206-381)
[2020-07-25 17:29] LABS: Prealbumin 8.5 mg/dL (17.6-36.0)
--- NOTE | 2020-07-25 17:41 | PM.TDS ---
Transfer Discharge Sum: Prov Provider Date of admission: 07/23/20 16:04 Date of transfer: 07/25/20 at roughly 1840 Accepting facility/physician: [facility]. Dr. Loyd - Minimally Invasive Surgeon Primary care physician: Bruno Gabriel MD Admitting clinician: Kayla Sampson MD Consults: 07/23/20 Consult to Physician Routine Comment: Consulting Provider: Sidney Webster call center support representative/MD group to consult: Sonny villegas notify in a.m. Reason for consultation: Dysphagia, GERD, N/V Has provider been notified: Yes 07/25/20 Consult to Dietitian Routine Reason for Consult:: TPN recommendations please 07/25/20 16:42 Consult to Dietitian Routine Reason for Consult:: TPN recommendations please DS: Admitting Diagnosis Admitting Diagnosis Admitting Diagnosis: Nausea and vomiting. DS: Discharge Diagnosis Discharge Diagnosis (1) Gastrojejunal anastomotic stricture: Code(s): K91.89 - Other postprocedural complications and disorders of digestive system Status: Acute Assessment and Plan: With gastric outlet obstruction as noted on EGD. GI following and recommends transfer to bariatric center. Dr. Loyd at [facility] accepting physician. Rec starting TPN, advance to liquid diet, and obtain labs in interim for waiting for bed. Bed available on 07/25/20 and patient transferred at roughly 6:40 (2) Nausea and vomiting: Code(s): R11.2 - Nausea with vomiting, unspecified Status: Acute Assessment and Plan: Likely due to above. Continue IVF (3) Acute kidney injury: Code(s): N17.9 - Acute kidney failure, unspecified Status: Acute Assessment and Plan: Resolved with IVF. [place] to be due to dehydration given poor oral intake and ongoing vomiting. Cr 0.70 today Monitor (4) Dehydration: Code(s): E86.0 - Dehydration Status: Acute Assessment and Plan: Continue supportive therapy. (5) Dysphagia: Code(s): R13.10 - Dysphagia, unspecified Status: Acute Assessment and Plan: EGD as stated above. (6) Hypokalemia: Code(s): E87.6 - Hypokalemia Status: Acute Assessment and Plan: K 3.0 today. Replaced with 40 KCl IV today and 40 KCl PO prior to discharge as K 3.1 on redraw Transfer Discharge Sum: Med Medications Active and Home Medications: Home Medications ergocalciferol (vitamin D2) 1,250 mcg PO WEEKLY 07/20/20 [History Confirmed 07/23/20] fluoxetine 10 mg PO DAILY 07/20/20 [History Confirmed 07/23/20] lisinopril 10 mg PO DAILY 07/20/20 [History Confirmed 07/23/20] ondansetron HCl [Zofran] 4 mg PO Q8H PRN #10 tablet 07/20/20 [Rx Confirmed 07/23/20] omeprazole 20 mg PO DAILY 07/23/20 [History Confirmed 07/23/20] Active Medications Acetaminophen (Tylenol Elixir) 650 mg PO Q4H PRN PRN Reason: Mild Pain (1-3) or Fever Last Admin: 07/24/20 18:26 Dose: 650 mg Documented by: Dextrose (Dextrose 50% Syringe) 12.5 gm IV PUSH PRN PRN; Protocol PRN Reason: Hypoglycemia Last Admin: 07/25/20 17:10 Dose: 12.5 gm Documented by: Glucagon (Glucagon For Inj) 1 mg IM PRN PRN; Protocol PRN Reason: Hypoglycemia Glucose (Glutose 15) 15 gm PO PRN PRN; Protocol PRN Reason: Hypoglycemia Dextrose (Dextrose 5% 1,000 Ml) 1,000 mls @ 100 mls/hr IVPB PRN PRN; Protocol PRN Reason: Hypoglycemia Potassium Chloride/Dextrose/Sod Cl (Kcl 20 Meq/D5/0.45% Sod Chl) 1,000 mls @ 75 mls/hr IV CONT .[id number] VERONICA Last Admin: 07/25/20 16:15 Dose: 75 mls/hr Documented by: Dextrose (Dextrose 10%) 1,000 mls @ 50 mls/hr IV CONT .Q20H PRN PRN Reason: if PN is interrupted Mult
[2020-07-25] MEDS: POTASSIUM CHLORIDE 20 MEQ PACKET (FOR LIQUID) 40 MEQ PO (17:54)
[2020-07-25 18:10] LABS: Glucose Point of Care 120 (65-105)
--- NOTE | 2020-07-25 18:16 | PC.NURSE ---
Report called to Jerad at [facility].
[2020-07-25 18:27] LABS: Glucose Point of Care 66 (65-105)
[2020-07-25] MEDS: DEXTROSE 5% 1,000 ML 1,000 ML 100 ML IVPB (18:33)
[2020-07-26 17:12] LABS: Glucose Point of Care 31 (65-105)
== END 2020-07-25 18:40 | disposition short-term general hospital (02) ==
LOC: ANHED 16:08 → ANH3MEDSUR 16:37
PROVIDERS: Emergency Medicine; Hospitalist; Internal Medicine Gastroenterology; Physician Assistant; Admitting Provider Family Medicine; Emergency Provider Emergency Medicine; PCP Family Medicine; Visit Provider Internal Medicine
PROC: 0DJ08ZZ Inspection of Upper Intestinal Tract, Via Natural or Artificial Opening Endoscopic (ICD-10-PCS; CPT 43235; principal; 2020-07-25 12:00)
DX: R11.2 Nausea with vomiting, unspecified (principal); K91.89 Other postprocedural complications and disorders of digestive system; E86.0 Dehydration; R13.10 Dysphagia, unspecified; K44.9 Diaphragmatic hernia without obstruction or gangrene; K31.2 Hourglass stricture and stenosis of stomach; K31.84 Gastroparesis; K21.0 Gastro-esophageal reflux disease with esophagitis; E87.6 Hypokalemia; R94.31 Abnormal electrocardiogram [ECG] [EKG]; Z98.84 Bariatric surgery status; Z79.899 Other long term (current) drug therapy
CPT/HCPCS: 43239; 36415; 71046; 74018; 80048; 80053; 81001; 82607; 82728; 82746; 83540; 83550; 83735; 84134; 84466; 85025; 85730; 86140; 87086; 87088; 88305; 93005; 96360; 96361; 96365; 96366; 96374; 96375; 96376; 99285; A9270; C9113; G0378; G0379; J0131; J2270; J2550; J2704; J3480; J7030; J7070; J7120

== ENCOUNTER 2021-04-21 13:23 | Emergency (ER) | payer OTHER, SELFPAY ==
--- NOTE | ~2021-04-21 | CT_ITS ---
EXAMINATION: CT BRAIN W/O DATE: 04/21/2021 15:08 INDICATION: Headaches TECHNIQUE: Computed tomography (CT) of the head was performed without intravenous contrast. The dose- length product was 605.33 mGy-cm. Automated exposure control and iterative reconstruction technique w ere employed. COMPARISON: CT dated 03/25/2015 FINDINGS: Normal brain parenchymal volume for age. Normal shearer-white differentiation. No acute intrac ranial hemorrhage, infarction, mass or mass effect. No ventriculomegaly or midline shift. Midline sagittal images demonstrate a normal corpus callosum, c raniovertebral junction and sella turcica. Basilar cisterns are patent. Paranasal sinuses and mastoids are pneumatized. No depressed skull fractures. IMPRESSION: 1. No acute intracranial abnormality. Reviewed, dictated and finalized at location A.
[2021-04-21 13:28] VITALS: BP 118/74; PULSE 146; RESP 16; TEMP 36.1; O2SAT 100
[2021-04-21 14:10] LABS: Basophils Percent Auto 0.6 % (0.2-1.2); Eosinophils Absolute Auto 0.1 K/mm3 (0-0.3); Eosinophils Percent Auto 1.2 % (0-4.4); Hematocrit 44.3 % (37.0-47.0); Hemoglobin 14.7 g/dL (12.0-15.0); Immature Granulocyte Absolute 0.02 K/mm3 (0.00-0.031); Immature Granulocyte Percent A 0.3 % (0-0.5); Lymphocytes Absolute Auto 3.11 K/mm3 (0.9-3.2); Lymphocytes Percent Auto 46.9 % (18.3-44.2); Mean Corpuscular HGB Conc 33.2 g/dl (32-36); Mean Corpuscular Hemoglobin 33.4 pg (26-34); Mean Corpuscular Volume 100.7 fl (80-100); Mean Platelet Volume 9.1 fl (7.4-10.4); Monocytes Absolute Auto 0.3 K/mm3 (0.1-0.6); Monocytes Percent Auto 4.1 % (2.6-8.5); Neutrophils Absolute Auto 3.1 K/mm3 (1.3-6.7); Neutrophils Percent Auto 46.9 % (45.5-73.1); Platelet Count Result 224 k/mm3 (150-375); Red Cell Distribution Width 12.8 % (11.5-14.5); White Blood Count 6.6 K/mm3 (4.5-10.0)
[2021-04-21 14:21] LABS: Alanine Aminotransferase 19 U/L (4-35); Albumin Level 4.5 g/dL (3.5-5.1); Alkaline Phosphatase 78 U/L (38-126); Anion Gap 9 mmol/L (8-16); Aspartate Amino Transferase 35 U/L (14-36); Bilirubin,Total 0.3 mg/dL (0.2-1.3); Blood Urea Nitrogen 10 mg/dL (7-17); Calcium 9.2 mg/dL (8.4-10.2); Carbon Dioxide 28 mmol/L (22-30); Chloride 109 mmol/L (98-107); Estimated CRCL calculation 92 ml/min; Estimated Glomerular Filt Rate > 60; Glucose 75 mg/dL (65-105); Partial Thromboplastin Time 30.1 SECONDS (22.3-36.8); Potassium 3.5 mmol/L (3.4-5.0); Prothrombin Time 13.7 Seconds (11.1-14.7); Sodium 146 mmol/L (137-145)
--- NOTE | 2021-04-21 14:48 | ED.HA ---
HPI - Headache General Chief Complaint: Headache Stated Complaint: headache, diarrhea Time Seen by Provider: 04/21/21 13:56 Source: patient Mode of arrival: ambulatory Limitations: no limitations History of Present Illness HPI Narrative: Patient is a 45 year old female who presents complaining of headache x 1 week and nausea and vomiting. Patient was seen earlier at Dr. Chapa office as a new patient and patient sent for outpatient labs. While patient was coming for outpatient labs, she reports she would like to be seen for headache. Patient initially reported to the RN that she had a history of brain cancer. After thorough investigation, patient's mother had a history of brain and is . Patient is anxious about brain cancer and reports headache x 1 week with nausea and vomiting. Spoke with Dr. Chapa who reports patient's neuro exam was normal. Patient's neuro exam upon arrival is negative. Patient's history reports a history of migraines . Patient is a poor historian. MD elicited complaint: headache Related Data Home Medications Medication Instructions Recorded Confirmed ergocalciferol (vitamin D2) 1,250 mcg PO WEEKLY 07/20/20 07/23/20 fluoxetine 10 mg PO DAILY 07/20/20 07/23/20 lisinopril 10 mg PO DAILY 07/20/20 07/23/20 omeprazole 20 mg PO DAILY 07/23/20 07/23/20 Allergies Allergy/AdvReac Type Severity Reaction Status Date / Time No Known Allergies Allergy Verified 04/21/21 14:01 Review of Systems Review of Systems: Narrative: CONSTITUTIONAL: Denies fever, chills, or sweats. EYES: Denies visual changes, redness, or discharge. ENT: Denies rhinorrhea, congestion, sore throat, or otalgia. CARDIOVASCULAR: Denies chest pain, palpitations, or edema. RESPIRATORY: Denies cough or dyspnea. GASTROINTESTINAL: Denies abdominal pain, reports nausea and vomiting. GENITOURINARY: Denies dysuria or hematuria. SKIN: Denies rash or itching. MUSCULOSKELETAL: Denies back pain, joint pain, or myalgia. NEUROLOGIC: Reports headache, denies numbness, dizziness, or weakness. PSYCHIATRIC: Denies anxiety or depression. [facility] Past Medical History Medical History Anemia Anxiety Cystic mesothelioma (~05/2016) Eczema GERD (gastroesophageal reflux disease) Migraines Surgical History Surgical History Gastric bypass status for obesity History of excision of lesion Solar lentigo from the left lateral canthus. History of gastric bypass (~2010) x 2. History of laparoscopic cholecystectomy (~2003) History of tonsillectomy History of ventral hernia repair (~05/2016) Incarcerated ventral hernia repair with extensive adhesiolysis. 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 Family History Family History Mother Diabetes mellitus Cancer Hypertension Colon cancer Father Diabetes mellitus Hypertension FH: CABG (coronary artery bypass surgery) Sibling Hypothyroid Hypertension Social History Social History (Updated 07/24/20 @ 01:26 by Masha Yeung PA-C) Social History: the patient is and lives in [place] with her 2 children. 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 She wishes to be a full code. Her father, Maikel Adair, as her surrogate decision maker. Spiritual care concerns: No Comments At the time of signature, I have reviewed and agree with nursing past medical, surgical, social, and family history unless otherwise noted. Please see nursing chart for further information. There is no relevant family history pertinent to the presenting complaint. Exam Narrative: Exam Narrative: GENERAL: Well-appearing, well-nourished, and in no acute distress. HEAD: Normocephalic, atraumatic. EYES: EOMI. No redn
[2021-04-21] MEDS: SODIUM CHLORIDE 0.9% IV 1,000 ML 999 ML IV CONT (15:29)
[2021-04-21] MEDS: ONDANSETRON INJ 4 MG/2 ML VIAL IV PUSH (15:32)
[2021-04-21 16:00] VITALS: BP 119/84; PULSE 67; RESP 18; TEMP 36.8; O2SAT 99
[2021-04-21 16:35] VITALS: BP 119/84; PULSE 68; RESP 18; TEMP 37.1; O2SAT 99
== END 2021-04-21 16:35 | disposition home or self-care (01) ==
PROVIDERS: Emergency Medicine; Emergency Provider Nurse Practitioner; PCP Family Medicine
DX: R51.9 Headache, unspecified (principal); K21.9 Gastro-esophageal reflux disease without esophagitis; F41.9 Anxiety disorder, unspecified; Z86.2 Personal history of diseases of the blood and blood-forming organs and certain disorders involving the immune mechanism; Z98.84 Bariatric surgery status
CPT/HCPCS: 36415; 70450; 80053; 85025; 85610; 85730; 86850; 86900; 86901; 96365; 96375; 99284; J0131; J2405; J7030

== ENCOUNTER 2021-07-25 15:36 | Outpatient (CLI) | payer OTHER, SELFPAY ==
--- NOTE | ~2021-07-25 | US_ITS ---
EXAMINATION: US soft tissue upper back DATE: 07/25/2021 16:05 INDICATION: Left upper back lump. TECHNIQUE: Multiple grayscale and Doppler ultrasound images of the thorax were obtained. COMPARISON: Chest CT 04/29/2017 FINDINGS: Again seen is an 8.5 x 3.8 x 2.7 cm intramuscular and subcutaneous lipoma in left posterior thorax. IMPRESSION: 1. Lipoma in left posterior thorax. Reviewed, dictated and finalized at location A.
== END 2021-07-25 15:37 | disposition home or self-care (01) ==
PROVIDERS: PCP Emergency Medicine; Visit Provider Emergency Medicine
DX: M54.2 Cervicalgia (principal)
CPT/HCPCS: 76604

== ENCOUNTER 2021-10-06 01:59 | Day surgery (SDC) | payer OTHER, SELFPAY ==
[2021-09-30 13:47] VITALS: BMI 33.0
--- NOTE | 2021-09-30 14:02 | PC.NURSE ---
Report to the Outpatient Waiting Room, entrance under the green pavilion located off [facility], at time 1100 on date 10/06/21. OR Time: 1300 - You and your visitor will be asked a series of questions to screen for COVID 19 for your protection. - A mask is required within the hospital. - Only one visitor is allowed at this time. Patient visitors will be guided where to wait when not with patient. Preoperative COVID Testing Requirements: No COVID Test needed if: (proof is required; if not received patient will have Rapid Test prior to entry) - Patient has received COVID Vaccine at least 14 days prior to procedure date or - Patient has positive COVID test result within last 90 days of surgery date. COVID Test needed if above criteria is not met If not COVID vaccinated a COVID test must be conducted within 72 hours of surgery and patient is asked to isolate self from time of testing until procedure. You will go to the [facility] for your COVID testing. The [facility] is located at the corner of [address] [facility]. You will only be called if COVID results are positive and your surgeon may reschedule your elective surgery date. Patients may have clear liquids (water, carbonated beverages, clear teas, apple juice) until 3 hours prior to surgery with a maximum of 20 ounces. - No food from midnight until time of surgery - Infants may have breast milk until 4 hours before surgery, infant formula 6 hours prior to surgery. - Children will be allowed to drink immediately following surgery. If applicable, please bring a bottle or sippy cup to assist with drinking. Juice, water, soda, and popsicles are readily available. For infants on formula, please bring formula the day of surgery. Pacifiers are allowed. Take the following medications with a SIP of water the morning of surgery: PLAQUENIL, PREDNISONE, WELLBUTRIN Medications to discontinue per physician VITAMINS/SUPPLEMENTS Date to take last dose: 3 DAYS PRE-OP Please no make-up, nail equatorial guinean, hairspray, perfume, deodorant, or body powder the day of surgery. No jewelry (including any body piercings) or valuables the day of surgery, leave them at home. Please take a shower or bath the night before, or the morning of, surgery with an antibacterial soap. Wear comfortable, loose fitting clothing. Children are encouraged to wear pajamas. - Jewelry must be removed prior to entering the operating room. Rings and piercings that are not removed may be cut off. - The hospital will not accept responsibility for valuables. - Please leave all valuables, including medications, at home the day of surgery. If you are going home after surgery, a licensed electric train driver must drive you home. - NO public transportation without another adult. - We recommend that an adult stay with you for 24 hours following discharge. - We also recommend that you do not drive, make important decision, drink alcoholic beverages, or take any drugs that were not prescribed by your health care provider for at least 24 hours after your discharge time. For Pediatric surgeries, we recommend two adults accompany the child home (only one inside the building at this time). Follow any additional instructions given to you from your surgeon. Telephone instructions given to SUSAN INIGUEZ and asked if any additional questions and then verbalized understanding. Patient advised to call surgeon office or pre surgery nurse liaison [phone] if any additional questions.
--- NOTE | 2021-10-06 07:37 | WPDANESEPPF ---
Anes - Initial Pre Proc Eval Procedure: Operation Date: 10/06/21 11:00 Proposed Procedures p Excision Upper Back Mass - Michel Doyle DO Date/Time: 10/06/21 07:37 Surgeon: Michel Doyle DO Pre Op Diagnosis: 8 cm back mass Patient Data Age: 46 Gender: F Height: 1.65 m Weight: 89.91 kg Allergies Allergy/AdvReac Type Severity Reaction Status Date / Time No Known Allergies Allergy Verified 10/06/21 10:01 Home Medications Medication Instructions Recorded Confirmed Type bupropion HCl [Wellbutrin] 75 mg PO BID 09/30/21 10/06/21 History fexofenadine [Allergy Relief 180 mg PO DAILY PRN 09/30/21 10/06/21 History (fexofenadine)] hydroxychloroquine [Plaquenil] 200 mg PO BID 09/30/21 10/06/21 History omega-3 fatty acids [Fish Oil] 1,000 mg PO DAILY 09/30/21 10/06/21 History prednisone 10 mg PO DAILY 09/30/21 10/06/21 History Patient hx anesthesia problems: none Family hx anesthesia problems: none Results Review: All pre-operative results and documents have been reviewed as part of the pre-operative evaluation. [facility] Past Medical History Medical History (Updated 10/06/21 @ 07:38 by Lan Camacho MD) BMI 36.0-36.9,adult Cystic mesothelioma (~05/2016) Eczema Gastrojejunal anastomotic stricture GERD (gastroesophageal reflux disease) Lupus (systemic lupus erythematosus) Migraines Surgical History Surgical History Gastric bypass status for obesity History of excision of lesion Solar lentigo from the left lateral canthus. History of gastric bypass (~2010) x 2. History of laparoscopic cholecystectomy (~2003) History of tonsillectomy History of ventral hernia repair (~05/2016) Incarcerated ventral hernia repair with extensive adhesiolysis. 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 Family History Family History Mother Diabetes mellitus Cancer Hypertension Colon cancer Father Diabetes mellitus Hypertension FH: CABG (coronary artery bypass surgery) Sibling Hypothyroid Hypertension Social History Social History Social History: the patient is and lives in [place] with her 2 children. 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 She wishes to be a full code. Her father, Maikel Adair, as her surrogate decision maker. Smoking status: Never smoker Alcohol intake: current Alcohol use details: A COUPLE/MONTH Substance use: never Substance use type: does not use Living arrangements: with family Spiritual care concerns: No Anes - Eval Final PreProcedure Day of Procedure 10/06/21 07:37 Patient weight: obese Heart: regular rate and rhythm Lungs: clear to auscultation and normal air movement Airway: Mallampati scale class II Neurological: alert and oriented Last oral intake: >/= 8 hours ASA classification: III Emergent: no Anesthetic plan: proceed Anesthesia type and monitoring: general GIVS Results Review: All pre-operative results and documents have been reviewed as part of the pre-operative evaluation. Informed Consent: The patient's anesthetic plan and its attendant risks and benefits were discussed with the patient/family/POA. Questions were solicited and answers provided to the satisfaction of the patient/family/POA.
[2021-10-06] MEDS: LACTATED RINGERS 1,000 ML 30 ML IV CONT (09:50)
[2021-10-06 10:03] VITALS: BP 113/85; PULSE 77; RESP 18; TEMP 36.4; O2SAT 100
--- NOTE | 2021-10-06 11:15 | WPDHPUPDATE1 ---
History and Physical Update Update Date/Time: 10/06/21 11:15 History and Physical has been reviewed, including an updated exam of the patient. There are NO changes in the patient's condition. Risks, benefits, and alternatives have been discussed and questions answered. Patient agrees to proceed with procedure.
[2021-10-06] MEDS: ceFAZolin 2 GM/D5W 50 ML 2 GM/50 ML BAG IVPB (11:32)
[2021-10-06] MEDS: LIDO 1%/EPINEPHRINE 1:100,000 50 ML VIAL INFILTRATE (11:58)
[2021-10-06] MEDS: BACITRACIN OINTMENT 15 GM TUBE 1 APPLIC TOPICAL (12:23)
[2021-10-06 12:40] VITALS: BP 126/82; PULSE 80; RESP 16; O2SAT 97
[2021-10-06 13:10] VITALS: BP 146/99; PULSE 80; RESP 16
--- NOTE | 2021-10-06 14:20 | W.PM.PROC2 ---
Procedure Note - Detailed Date of Procedure 10/06/21 Pre-op Diagnosis 8 cm back mass Post-op Diagnosis other (8 cm intramuscular back mass) Procedure Performed 1. Excision 8 cm intramuscular back mass 2. Layered closure Surgeon Michel Doyle, DO Anesthesia MAC and local (1% lidocaine with epinephrine) Indications This is a 46-year-old woman who presented with a large back mass that she has noticed for several years. This has become slightly larger and does have some discomfort when she is leaning up against a chair or something hard. An ultrasound was recently performed and this showed evidence of an 8 cm partially intramuscular back mass with consistency of lipoma. Discussions were made with the patient about treatment options and decision was made to proceed with excision of the 8 cm back mass. Findings 8 cm back mass was excised. This appeared to be a partially intra muscular lipoma. There was a portion of the lipoma that was within the subcutaneous space, but then as this was dissected deeper it was identified going through the fascia on the back and into the trapezius muscle. The mass was carefully excised completely and it was sent to the lab for pathology. The fascia was then reapproximated over the muscle using 2 0 Vicryl simple interrupted sutures. The Brian's fascia was then reapproximated with 2 0 Vicryl simple interrupted sutures and the skin was reapproximated using 3-0 nylon vertical mattress interrupted sutures. Description of Procedure Procedure as well as risks, benefits, and alternatives were discussed with the patient. Written consent was obtained and placed in chart prior to procedure. Patient was brought back to surgical suite. She was placed in right lateral decubitus position. Time-out was done to confirm patient and procedure. IV sedation was then administered by the Anesthesia Department. Her left upper back area was prepped and draped in sterile fashion using chlorhexidine prep. 1% lidocaine with epinephrine was infiltrated locally around the mass. An 8 cm transverse incision was made directly over the mass using a 15 blade scalpel. Electrocautery was used for hemostasis and for careful dissection through the subcutaneous tissue. The back mass was encountered and this was carefully dissected free from the surrounding subcutaneous attachments using electrocautery. The mass was identified going in and to the trapezius muscle and this was carefully dissected free from within the muscle using electrocautery. The mass was completely excised and sent to the lab for pathology. The wound bed was then inspected and hemostasis appeared adequate and no other masses appeared present. The fascia over the muscle was then reapproximated using 2-0 Vicryl simple interrupted sutures. Brian's fascia was then reapproximated also using 2-0 Vicryl simple interrupted sutures. Skin was then reapproximated using 3-0 nylon vertical mattress interrupted sutures. Bacitracin ointment was applied followed by 4 x 4 gauze and Medipore tape. Estimated Blood Loss -5.0 Pathology yes (Back mass) Complications No immediate complications Condition stable Disposition same day
== END 2021-10-06 14:04 | disposition home or self-care (01) ==
PROVIDERS: PCP Emergency Medicine; Visit Provider Surgery
PROC: (CPT 21933; principal; 2021-10-06 11:00)
DX: D17.79 Benign lipomatous neoplasm of other sites (principal); L30.9 Dermatitis, unspecified; Z98.84 Bariatric surgery status; Z90.49 Acquired absence of other specified parts of digestive tract; E66.9 Obesity, unspecified; Z68.37 Body mass index [BMI] 37.0-37.9, adult
CPT/HCPCS: 21933; 88304; A9270; J0690; J2250; J2704; J3010; J7120

== ENCOUNTER 2022-01-16 00:17 | Day surgery (SDC) | payer OTHER, SELFPAY ==
[2022-01-02 14:10] VITALS: BMI 38.8
--- NOTE | 2022-01-16 12:28 | WPDANESEPPF ---
Anes - Initial Pre Proc Eval Procedure: Operation Date: 01/16/22 13:00 Proposed Procedures p Screening Colonoscopy - Sidney Webster MD Date/Time: 01/16/22 12:28 Surgeon: Sidney Webtser MD Pre Op Diagnosis: neoplasm screening Patient Data Age: 46 Gender: F Height: 1.6 m Weight: 99.5 kg Allergies Allergy/AdvReac Type Severity Reaction Status Date / Time No Known Allergies Allergy Verified 01/02/22 14:08 Home Medications Medication Instructions Recorded Confirmed Type bupropion HCl 75 mg PO BID 09/30/21 01/02/22 History fexofenadine [Allergy Relief 180 mg PO DAILY PRN 09/30/21 01/02/22 History (fexofenadine)] hydroxychloroquine [Plaquenil] 200 mg PO BID 09/30/21 01/02/22 History omega-3 fatty acids 1,000 mg PO DAILY 09/30/21 01/02/22 History prednisone 10 mg PO DAILY 09/30/21 10/06/21 History hydrocodone 5 mg-acetaminophen 325 1 tablet PO Q4H PRN #10 tablet 10/07/21 Rx mg tablet Patient hx anesthesia problems: none Family hx anesthesia problems: none Results Review: All pre-operative results and documents have been reviewed as part of the pre-operative evaluation. [facility] Past Medical History Medical History (Updated 10/06/21 @ 07:38 by Lan Camacho MD) BMI 36.0-36.9,adult Cystic mesothelioma (~05/2016) Eczema Gastrojejunal anastomotic stricture GERD (gastroesophageal reflux disease) Lupus (systemic lupus erythematosus) Migraines Surgical History Surgical History Gastric bypass status for obesity History of excision of lesion Solar lentigo from the left lateral canthus. History of gastric bypass (~2010) x 2. History of laparoscopic cholecystectomy (~2003) History of tonsillectomy History of ventral hernia repair (~05/2016) Incarcerated ventral hernia repair with extensive adhesiolysis. 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 Family History Family History Mother Diabetes mellitus Cancer Hypertension Colon cancer Father Diabetes mellitus Hypertension FH: CABG (coronary artery bypass surgery) Sibling Hypothyroid Hypertension Social History Social History Social History: the patient is and lives in [place] with her 2 children. 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 She wishes to be a full code. Her father, Maikel Adair, as her surrogate decision maker. Smoking status: Never smoker Alcohol intake: current Alcohol use details: A COUPLE/MONTH Substance use: never Substance use type: does not use Living arrangements: with family Spiritual care concerns: No Anes - Eval Final PreProcedure Day of Procedure 01/16/22 12:28 Patient weight: obese Heart: regular rate and rhythm Lungs: clear to auscultation Airway: Mallampati scale class III Neurological: alert and oriented Last oral intake: >/= 8 hours ASA classification: III Emergent: no Anesthetic plan: proceed Anesthesia type and monitoring: general GIVS and standard monitoring Results Review: All pre-operative results and documents have been reviewed as part of the pre-operative evaluation. Informed Consent: The patient's anesthetic plan and its attendant risks and benefits were discussed with the patient/family/POA. Questions were solicited and answers provided to the satisfaction of the patient/family/POA.
[2022-01-16 12:31] VITALS: BP 139/95; PULSE 77; RESP 16; TEMP 36.4; O2SAT 99
--- NOTE | 2022-01-16 12:37 | PM.HPGS ---
History of Present Illness History of Present Illness Consent: Risks, benefits, and alternatives have been discussed and questions answered. Patient agrees to proceed with procedure. Chief complaint: neoplasm screening Narrative: Nara Adair is a 46 year old female here for first screening colonoscopy, mother had colon cancer Review of Systems Constitutional: Constitutional: Denies headache(s) and Denies weakness Eyes: Eyes: Denies blurry vision ENT: Reports Normal hearing present, Denies headache(s) and Denies neck pain Cardiovascular: Cardiovascular: Denies chest pain and Denies dyspnea Respiratory: Respiratory: Denies dyspnea Gastrointestinal: Gastrointestinal: Reports no additional gastrointestinal complaints Genitourinary: Genitourinary: Denies dysuria Musculoskeletal: Musculoskeletal: Denies neck pain Integumentary/Breasts: Skin/Breast: Denies dry skin Neurologic: Reports Normal hearing present, Denies headache(s) and Denies weakness Psychiatric: Psychiatric: Denies anxiety Endocrine: Endocrine: Denies change in body appearance Hematologic/Lymphatic: Hematologic/Lymphatic: Denies easy bleeding Allergic/Immunologic: Allergic/Immunologic: Denies urticaria PMFSH Past Medical History Medical History (Updated 01/16/22 @ 12:37 by Sidney Webster MD) BMI 36.0-36.9,adult Colon cancer screening Cystic mesothelioma (~05/2016) Eczema Gastrojejunal anastomotic stricture GERD (gastroesophageal reflux disease) Lupus (systemic lupus erythematosus) Migraines Surgical History Surgical History Gastric bypass status for obesity History of excision of lesion Solar lentigo from the left lateral canthus. History of gastric bypass (~2010) x 2. History of laparoscopic cholecystectomy (~2003) History of tonsillectomy History of ventral hernia repair (~05/2016) Incarcerated ventral hernia repair with extensive adhesiolysis. 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 Family History Family History Mother Diabetes mellitus Cancer Hypertension Colon cancer Father Diabetes mellitus Hypertension FH: CABG (coronary artery bypass surgery) Sibling Hypothyroid Hypertension Social History Social History Social History: the patient is and lives in [place] with her 2 children. 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 She wishes to be a full code. Her father, Maikel Adair, as her surrogate decision maker. Smoking status: Never smoker Alcohol intake: current Alcohol use details: A COUPLE/MONTH Substance use: never Substance use type: does not use Living arrangements: with family Spiritual care concerns: No Meds Home Medications and Allergies Home Medications Medication Instructions Recorded Confirmed Type bupropion HCl 75 mg PO BID 09/30/21 01/16/22 History fexofenadine [Allergy Relief 180 mg PO DAILY PRN 09/30/21 01/16/22 History (fexofenadine)] hydroxychloroquine [Plaquenil] 200 mg PO BID 09/30/21 01/16/22 History omega-3 fatty acids 1,000 mg PO DAILY 09/30/21 01/16/22 History prednisone 10 mg PO DAILY 09/30/21 01/16/22 History hydrocodone 5 mg-acetaminophen 325 1 tablet PO Q4H PRN #10 tablet 10/07/21 01/16/22 Rx mg tablet Allergies Allergy/AdvReac Type Severity Reaction Status Date / Time No Known Allergies Allergy Verified 01/16/22 12:29 Vital Signs Vital Signs - 24 hr 01/16/22 12:31 Temperature 97.5 F L Pulse Rate 77 Respiratory Rate 16 Blood Pressure 139/95 H Pulse Oximetry 99 Exam Const: General: comfortable and no acute distress HENMT: General nose exam: Normal nares present Eyes: General: appearance no
[2022-01-16] MEDS: LACTATED RINGERS 1,000 ML 150 ML IV CONT (12:41)
[2022-01-16 13:08] VITALS: BP 120/79; PULSE 82; RESP 16; O2SAT 100
[2022-01-16 13:18] VITALS: BP 122/82; PULSE 71; RESP 16; O2SAT 96
[2022-01-16 13:28] VITALS: BP 130/83; PULSE 68; RESP 16; O2SAT 92
== END 2022-01-16 13:49 | disposition home or self-care (01) ==
PROVIDERS: PCP Physician Assistant; Visit Provider Internal Medicine Gastroenterology
PROC: 0DJD8ZZ Inspection of Lower Intestinal Tract, Via Natural or Artificial Opening Endoscopic (ICD-10-PCS; CPT 45378; principal; 2022-01-16 13:00)
DX: Z12.11 Encounter for screening for malignant neoplasm of colon (principal); K57.30 Diverticulosis of large intestine without perforation or abscess without bleeding; Z80.0 Family history of malignant neoplasm of digestive organs; M32.9 Systemic lupus erythematosus, unspecified; K21.9 Gastro-esophageal reflux disease without esophagitis; L30.9 Dermatitis, unspecified; Z98.84 Bariatric surgery status; E66.9 Obesity, unspecified; Z68.41 Body mass index [BMI] 40.0-44.9, adult
CPT/HCPCS: 45378; J2001; J2704; J7120

== ENCOUNTER 2022-08-02 03:56 | Observation (INO) | payer BC, OTHER, SELFPAY ==
[2022-08-02] VITALS (16 sets, daily range): BP systolic 124–140; BP diastolic 81–91; PULSE 66–94; RESP 12–22; TEMP 36.6–37; O2SAT 94–100
--- NOTE | ~2022-08-02 | CT_ITS ---
EXAMINATION: CT abdomen pelvis wo/w con DATE: 08/03/2022 10:24 INDICATION: Insulinoma. Hypoglycemia. TECHNIQUE: Computed tomography (CT) of the abdomen and pelvis was performed without and with 100 mL O mnipaque 350 intravenous contrast. Automated exposure control and iterative reconstruction technique were employed. The dose-length product was 3647.06 mGy-cm. COMPARISON: CT abdomen and pelvis 12/11/2017 FINDINGS: The visualized portions of the lung bases demonstrate mild atelectasis. There is chronic el evation of right hemidiaphragm. No pleural effusion. The heart size is normal. No pericardial effusio n. The liver is normal. There are changes of cholecystectomy. There are changes of gastric bypass pro cedure. The spleen, pancreas, adrenal glands, and left kidney are normal. There is a 5 mm cyst in rig ht kidney. There is a supraumbilical ventral hernia containing nonobstructed small bowel. There is di verticulosis of the colon without evidence of diverticulitis. The appendix is normal. There are no pa thologically enlarged lymph nodes. There is a 9.3 x 5.0 x 4.0 cm multiloculated fluid collection abut ting the uterus and ovaries anteriorly. There is mild thoracolumbar spondylosis. There is mild chroni c anterior wedging of T11 vertebral body. IMPRESSION: 1. No evidence of an insulinoma. 2. 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 3. Supraumbilical ventral hernia containing nonobstructed small bowel. Reviewed, dictated and finalized at location A. IMPRESSION: 1. No evidence of an insulinoma. 2. 9.3 x 5.0 x 4.0 cm multiloculated fluid collection anterior to the uterus an d ovaries that measured 7.5 x 4.0 x 3.7 cm on 12/11/2017, consistent with benign cystic mesothelioma as shown at partial resection on 06/21/16. 3. Supraumbilical ventral hernia containing nonobstructed small bowel.
[2022-08-02 04:07] LABS: Glucose Point of Care 166 mg/dl (65-105)
[2022-08-02 04:23] LABS: Basophils Percent Auto 0.6 % (0.2-1.2); Eosinophils Percent Auto 0.1 % (0-4.4); Hematocrit 39.3 % (37.0-47.0); Hemoglobin 13.4 g/dL (12.0-15.0); Immature Granulocyte Absolute 0.03 K/mm3 (0.00-0.031); Immature Granulocyte Percent A 0.4 % (0-0.5); Lymphocytes Absolute Auto 1.94 K/mm3 (0.9-3.2); Lymphocytes Percent Auto 27.3 % (18.3-44.2); Mean Corpuscular HGB Conc 34.1 g/dl (32-36); Mean Corpuscular Hemoglobin 32.3 pg (26-34); Mean Corpuscular Volume 94.7 fl (80-100); Mean Platelet Volume 8.6 fl (7.4-10.4); Monocytes Absolute Auto 0.3 K/mm3 (0.1-0.6); Monocytes Percent Auto 3.7 % (2.6-8.5); Neutrophils Absolute Auto 4.8 K/mm3 (1.3-6.7); Neutrophils Percent Auto 67.9 % (45.5-73.1); Platelet Count Result 176 k/mm3 (150-375); Red Blood Count 4.15 M/mm3 (4.2-5.4); Red Cell Distribution Width 13.8 % (11.5-14.5); White Blood Count 7.1 K/mm3 (4.5-10.0)
--- NOTE | 2022-08-02 04:36 | ED.GENADULT ---
HPI - General Adult General Chief complaint: Recheck/Abnormal Lab/Rx Stated complaint: hypoglycemia History of Present Illness HPI narrative: Patient is a 47-year-old female who presents ER with low blood sugar. At home her Accu-Chek read to 67 for EMS. Upon arrival here it was 28 but that was after patient received oral glucose and then while checking from her IV her blood glucose was 166. She reports she felt extremely weak while at home. She started having tingling in her face and arms. She then developed spasms of her hands. EMS reports spasms slowly resolved while coming to the ER. Patient reports she had gone to a football game earlier in the evening. She then was at home watching movies and had not done anything out of the ordinary. She reports history of low blood glucose in the past related to her gastric bypass surgery she has had. Related Data Allergies Allergy/AdvReac Type Severity Reaction Status Date / Time No Known Allergies Allergy Verified 08/02/22 03:58 Review of Systems Review of Systems: All systems reviewed & are unremarkable except as noted in HPI and below Constitutional: Constitutional: Denies chills, Reports fatigue and Denies fever(s) ENT: Denies nasal congestion and Denies sore throat Cardiovascular: Cardiovascular: Denies chest pain, Denies rapid heart rate and Denies radiating jaw, neck or arm pain Respiratory: Respiratory: Denies cough and Denies dyspnea Gastrointestinal: Gastrointestinal: Denies abdominal pain, Denies nausea and Denies vomiting Musculoskeletal: Musculoskeletal: Denies arthralgias and Reports muscle cramps Neurologic: Denies numbness and Denies weakness Comments: Hand and arm tingling. PMFSH Past Medical History Medical History (Updated 08/02/22 @ 06:54 by Auide Kelly MD) Depression GERD (gastroesophageal reflux disease) Lupus Surgical History Surgical History (Updated 08/02/22 @ 06:54 by Audie Kelly MD) History of gastric bypass Exam Narrative: GENERAL: Well-appearing, well-nourished, and in no acute distress. HEAD: Normocephalic, atraumatic. EYES: PERRL and EOMI. ENT: Mucous membranes moist. CHEST: Clear to auscultation. No respiratory distress. HEART: Regular rate and rhythm. Normal peripheral pulses. ABDOMEN: Soft, nontender, nondistended. EXTREMITIES: Normal range of motion. No edema. Cool and clammy hands. SKIN: Warm, dry, no rash. NEURO: Alert and oriented x3. PSYCH: Normal mood and affect. Course Course Emergency Course: Admit to hospitalist for observation. IV potassium replacement ordered. Vital Signs Vital signs: Vital Signs Temperature 97.9 F 08/02/22 03:59 Pulse Rate 66 08/02/22 03:59 Respiratory Rate 20 08/02/22 03:59 Blood Pressure 132/81 08/02/22 03:59 Oxygen Delivery Room Air 08/02/22 03:59 Temperature 97.9 F 08/02/22 03:59 Pulse Rate 81 08/02/22 06:00 Respiratory Rate 15 08/02/22 06:00 Blood Pressure 134/89 08/02/22 04:46 Pulse Oximetry 99 08/02/22 06:00 Oxygen Delivery Room Air 08/02/22 03:59 Medical Decision Making Vital Signs Vital Signs: Vital Signs Temperature 97.9 F 08/02/22 03:59 Pulse Rate 66 08/02/22 03:59 Respiratory Rate 20 08/02/22 03:59 Blood Pressure 132/81 08/02/22 03:59 Oxygen Delivery Room Air 08/02/22 03:59 Temperature 97.9 F 08/02/22 03:59 Pulse Rate 81 08/02/22 06:00 Respiratory Rate 15 08/02/22 06:00 Blood Pressure 134/89 08/02/22 04:46 Pulse Oximetry 99 08/02/22 06:00 Oxygen Delivery Room Air 08/02/22 03:59 Lab Data Result diagrams: 08/02/22 04:16 08/02/22 04:17 Labs: Lab Results 08/02/22 08/02/22 08/02/22 Range/Units 04:03 04:16 04:16 WBC 7.1 (4.5-10.0) K/mm3 RBC 4.15 L (4.2-5.4) M/mm3 Hgb 13.4 (12.0-15.0) g/dL Hct 39.3 (37.0-47.0) % MCV 94.7 (80-100) fl MCH 32.3 (26-34) pg MCHC 34.1 (32-36) g/dl RDW 1
[2022-08-02 04:37] LABS: Anion Gap 19 mmol/L (8-16); Blood Urea Nitrogen 9 mg/dL (7-17); Calcium 8.1 mg/dL (8.4-10.2); Carbon Dioxide 23 mmol/L (22-30); Chloride 95 mmol/L (98-107); Estimated CRCL calculation 93 ml/min; Estimated Glomerular Filt Rate > 60; Glucose 146 mg/dL (65-110); Potassium 2.5 mmol/L (3.4-5.0); Sodium 137 mmol/L (137-145)
[2022-08-02] MEDS: POTASSIUM CHLORIDE 20 MEQ PACKET (FOR LIQUID) 40 MEQ PO (04:45)
--- NOTE | 2022-08-02 04:47 | PC.NURSE ---
Pt reported has had low potassium in the past. Admitted to RN has been taking 's Lasix. Dr Landeros notified.
--- NOTE | 2022-08-02 04:49 | PC.NURSE ---
Called pharmacy for IV Potassium for pt
[2022-08-02] MEDS: POTASSIUM CHLORIDE INJ 40 MEQ in SODIUM CHLORIDE 0.9% IV 500 ML 130 MEQ IVPB (05:11)
[2022-08-02] MEDS: SODIUM CHLORIDE 0.9% IV 1,000 ML 999 ML IV CONT (06:37)
[2022-08-02 06:41] LABS: Magnesium 1.2 mg/dL (1.6-2.3)
--- NOTE | 2022-08-02 07:04 | PM.IMHP ---
H&P: HPI History of Present Illness Date/Time: 08/02/22 07:04 Chief Complaint: Abnormal labs Narrative: Nara Adair is a 47 yo female with history of gastric bypass and lupus. She presented to the ER for evaluation of low blood sugar. patient reports that she has felt extremely weak in the past 24 hours and has had tingling to her face and arms, as well as spasms in her hands. she reports prior to this she was in her usual state of health. She has no change in medications, diet or recent illness. She does endorse mild diarrhea for the past 2 days, however this is not abnormal for her following her gastric bypass 2 years ago when she eats certain foods. She has had no sick contacts. She endorses taking her boyfriend's Lasix and potassium pill at home because she was feeling funny. She reports issues with her potassium level in the past but is not on any supplements at this time. Home medications include hydroxychloroquine for lupus, omeprazole, fluoxetine, Michelle and vitamin-D. EMS reports patient was unable to open her mouth or move her head they arrived on the scene. She was alert but slightly confused. She was dizzy, cool and clammy to touch. Glucose was noted to be 67, and she was given half tube of oral glucose with improvement in symptoms. Upon arrival in the ED her glucose was noted to be 28 she was given additional dose of oral glucose with improvement in blood glucose to 167. Vital signs were temp 97.9? F, pulse 66, respirations 20, blood pressure 132/81, SpO2 99% on room air. lab work did show low potassium 2.5, magnesium 1.2, sodium 137, chloride 95, TCO2 23, anion gap 19, BUN 9 and creatinine 0.7. CBC was unremarkable. UA showed clear yellow urine with 1+ protein, 1+ glucose, 2+ ketones, negative nitrates, 1+ bili, trace leukocytes, WBC 20 1-30, but moderate epi cells. Patient was sinus rhythm without ectopy on telemetry. The patient was treated with 40 mEq IV and p.o. potassium chloride, 2 L of normal saline. Upon arrival to the floor patient was noted to have a blood sugar of 34 she was awake at that time. Nursing gave the patient 2 juices and her food was ordered. Recheck blood glucose was less than 20. She was given an amp of D50 and started on D10 IV fluids. Patient was referred for observation and management of acute hypoglycemia, hypokalemia and hypomagnesemia. Review of Systems Review of Systems: All systems reviewed & are unremarkable except as noted in HPI and below Psychiatric: Psychiatric: Reports anxiety [facility] Past Medical History Medical History (Updated 08/02/22 @ 15:50 by Cherelle Yuen APRN) Depression GERD (gastroesophageal reflux disease) Lupus Surgical History Surgical History (Updated 08/02/22 @ 15:42 by Cherelle Yuen APRN) History of gastric bypass S/P cholecystectomy Family History Family History Mother Brain cancer Colon cancer Diabetes mellitus Hypertension Father Diabetes mellitus Hypertension H/O heart surgery Social History Social History Smoking status: Never smoker Alcohol intake: never Substance use: never Spiritual care concerns: No Meds Home Medications and Allergies Home Medications Medication Instructions Recorded Confirmed Type ergocalciferol (vitamin D2) 1,250 50,000 unit PO WEEKLY 08/02/22 08/02/22 History mcg (50,000 unit) capsule fexofenadine 180 mg tablet 180 mg PO DAILY PRN Allergy 08/02/22 08/02/22 History (Allergy Relief (fexofenadine)) Symptoms fluoxetine 60 mg tablet 60 mg PO DAILY 08/02/22 08/02/22 History hydroxychloroquine 200 mg tablet 200 mg PO BID 08/02/22 08/02/22 History omeprazole 20 mg capsule,delayed 20 mg PO DAILY 08/02/22 08/02/22 History release rizatriptan 5 mg tablet 5 mg PO DAILY PRN Migraine Headache 08/02/22 08/02/22 History Allergies Allergy/AdvReac Type Se
--- NOTE | 2022-08-02 07:39 | ADMGEN ---
This patient, Nara Adair, was admitted to Medical Room 250-01. Patient/family oriented to hospital policies and general routines including ID bracelet, bed and alarms, visiting hours, pain management, procedures, bathroom and other care routines, personal items, smoking policy, room service/diet, and visiting hours. Information on how to activate the Rapid Response Team has been discussed. Patient/Family are encouraged to report perceived risks to care and to ask questions if they do not understand what they are told or what they should do.
[2022-08-02 08:27] LABS: Glucose Point of Care 34 mg/dl (65-105)
[2022-08-02 08:50] LABS: Glucose Point of Care < 20 mg/dl (65-105)
[2022-08-02] MEDS: DEXTROSE 50% 25 GM/50 ML SYRINGE IV PUSH (08:55)
[2022-08-02] MEDS: DEXTROSE 10% 1,000 ML 50 ML IV CONT (09:03)
[2022-08-02 09:38] LABS: Appearance Urine Clear (Clear); Bilirubin Urine 1+ (Negative); Color Urine Yellow (Yellow); Glucose Urine UA 1+ mg/dL (Negative); Ketones Urine 2+ mg/dL (Negative); Leukocyte Esterase Ur Trace LEU/UL (Negative); Nitrate Urine Negative (Negative); Protein Urine 1+ mg/dL (Negative); Urobilinogen Urine >=8.0 mg/dL (<2.0); pH Urine 8.5 (5.0-9.0)
[2022-08-02 09:58] LABS: Add Urine Microscopic? YES; Blood Urine Trace-Intact (Negative)
[2022-08-02 10:02] LABS: Squamous Epithelial Cell Urine Moderate /hpf (Few); WBC Urine 21-30 /hpf (0-3)
[2022-08-02 10:03] LABS: Bacteria Urine Trace /hpf; Mucus Urine Moderate /lpf
[2022-08-02 10:12] LABS: Glucose Point of Care 171 mg/dl (65-105)
[2022-08-02 11:46] LABS: Glucose Point of Care 40 mg/dl (65-105)
[2022-08-02 11:50] LABS: Glucose Point of Care 36 mg/dl (65-105)
--- NOTE | 2022-08-02 11:56 | PC.NURSE ---
[employer]romed[employer] shows that D10 and magnesium have not been tested to be ran together. I called pharmacy to see if they had a different reference that showed otherwise. Pharmacy stated it is not tested; therefore cannot be ran together. Unable to get second IV access so magnesium has not been given. Provider aware.
[2022-08-02 12:21] LABS: Glucose 127 mg/dL (65-110)
[2022-08-02 14:17] LABS: Glucose Point of Care 118 mg/dl (65-105)
[2022-08-02 14:28] LABS: Glucose 129 mg/dL (65-110)
[2022-08-02 14:53] LABS: Beta-Hydroxybutyrate/Acetoacetate 0.06 mmol/L (0.02-0.27)
[2022-08-02] MEDS: diazePAM INJ (*CRX) 10 MG/2 ML SYRINGE 5 MG IV PUSH (15:04)
[2022-08-02] MEDS: MAGNESIUM SULF 4 GM/WATER100ML 4 GM/100 ML BAG IVPB (15:36)
[2022-08-02] MEDS: HYDROXYCHLOROQUINE SULFATE 200 MG TABLET PO (16:24)
[2022-08-02 17:36] LABS: Glucose Point of Care 79 mg/dl (65-105)
[2022-08-02 18:38] LABS: Glucose Point of Care 145 mg/dl (65-105)
[2022-08-02 19:07] LABS: Magnesium 2.6 mg/dL (1.6-2.3); Potassium 3.5 mmol/L (3.4-5.0)
[2022-08-02 20:11] LABS: Glucose Point of Care 91 mg/dl (65-105)
[2022-08-02 22:02] LABS: Glucose Point of Care 119 mg/dl (65-105)
[2022-08-03] VITALS: PULSE 77
[2022-08-03] MEDS: DEXTROSE 10% 1,000 ML 50 ML IV CONT (00:44)
[2022-08-03] MEDS: SALINE LOCK FLUSH 10 ML IV PUSH ×3 (00:49→14:16)
[2022-08-03 00:54] LABS: Glucose Point of Care 122 mg/dl (65-105)
[2022-08-03 04:00] VITALS: BP 149/91; PULSE 70; PULSE 73; RESP 20; TEMP 36.6; O2SAT 96
[2022-08-03 04:44] LABS: Glucose Point of Care 98 mg/dl (65-105)
[2022-08-03 04:44] LABS: Glucose Point of Care 63 mg/dl (65-105)
--- NOTE | 2022-08-03 04:44 | PC.NURSE ---
Pt having poor circulation in hands, finger stick produced scant dark blood when checking POC BG, glucometer reads 63. Glucose checked with blood taken from earlobe, glucometer reads 98. BMP taken from midline at this time.
[2022-08-03 05:08] LABS: Hemoglobin 12.1 g/dL (12.0-15.0); Immature Platelet Fraction Pct 2.7 % (0.9-11.2); Mean Corpuscular HGB Conc 33.6 g/dl (32-36); Mean Corpuscular Volume 98.1 fl (80-100); Mean Platelet Volume 8.8 fl (7.4-10.4); Platelet Count Result 156 k/mm3 (150-375); Red Blood Count 3.67 M/mm3 (4.2-5.4); Red Cell Distribution Width 13.8 % (11.5-14.5); White Blood Count 5.1 K/mm3 (4.5-10.0)
[2022-08-03 05:16] LABS: Anion Gap 6 mmol/L (8-16); Blood Urea Nitrogen 6 mg/dL (7-17); Calcium 8.1 mg/dL (8.4-10.2); Carbon Dioxide 28 mmol/L (22-30); Chloride 102 mmol/L (98-107); Estimated CRCL calculation 107 ml/min; Estimated Glomerular Filt Rate > 60; Glucose 107 mg/dL (65-110); Potassium 3.1 mmol/L (3.4-5.0); Sodium 136 mmol/L (137-145)
[2022-08-03 08:00] VITALS: PULSE 78
[2022-08-03] MEDS: FLUoxetine HCL 20 MG CAPSULE 60 MG PO (08:09)
[2022-08-03] MEDS: POTASSIUM CHLORIDE INJ 40 MEQ in SODIUM CHLORIDE 0.9% IV 500 ML 130 MEQ IVPB (08:09)
[2022-08-03] MEDS: POTASSIUM CHLORIDE 20 MEQ TABLET 40 MEQ PO (08:09)
[2022-08-03] MEDS: HYDROXYCHLOROQUINE SULFATE 200 MG TABLET PO (08:09)
[2022-08-03] MEDS: ERGOCALCIFEROL 50,000 UNIT CAPSULE 50000 UNITS PO (08:10)
[2022-08-03 08:20] LABS: Glucose Point of Care 103 mg/dl (65-105)
[2022-08-03 08:20] LABS: Glucose Point of Care 49 mg/dl (65-105)
[2022-08-03 08:20] LABS: Glucose Point of Care 61 mg/dl (65-105)
--- NOTE | 2022-08-03 09:57 | PM.IMPN ---
Progress Note: A&P Assessment and Plan (1) Hypoglycemia: Code(s): E16.2 - Hypoglycemia, unspecified Status: Acute Assessment and Plan: Unknown etiology. Her patient does have history of Sirena-en-Y gastric bypass the approximately 2 years ago. She has never had any issues with blood glucose management or diagnosis of diabetes. She is not on any medications he currently known to cause hypoglycemia. Accu-Cheks q.4 hours Continue D10 at 75 mL/hour. Will continue IV fluids until able to stabilize blood sugars will attempt to wean off. High C-peptide, total insulin level, beta hydroxybutyrate level 0.06 within normal limits. Concern for insulinoma. She will likely need abdominal CT for further evaluation. (2) Acute hypokalemia: Code(s): E87.6 - Hypokalemia Status: Acute Assessment and Plan: Potassium 2.5 on admission patient does endorse episodes of diarrhea prior to admission. She was given 40 mEq KCL IV and p.o. in the emergency department. Magnesium is also noted to be low at 1.2. Replete the magnesium. Repeat potassium level. Monitor telemetry. (3) Hypomagnesemia: Code(s): E83.42 - Hypomagnesemia Status: Acute Assessment and Plan: Magnesium level 1.2 noted above replaced with 4 g Mag sulfate IV piggyback x1. Repeat magnesium level after infusion. (4) Lupus: Code(s): M32.9 - Systemic lupus erythematosus, unspecified Status: Acute Assessment and Plan: Continue hydroxychloroquine. (5) Abnormal urine: Code(s): R82.90 - Unspecified abnormal findings in urine Status: Acute Assessment and Plan: UA showed clear yellow urine with 1+ protein, 1+ glucose, 2+ ketones, negative nitrates, 1+ bili, trace leukocytes, WBC 20 1-30, but moderate epi cells. UA appears contaminated. Patient is asymptomatic. Hold antibiotics for now. Urine culture is pending. Plan CODE STATUS: FULL CODE Disposition: Home Estimated LOS: 1-2 days Subjective Date/time seen: 08/03/22 09:57 Exam Narrative: General:?No acute distress. well-developed adult female sitting up in the bed. BMI 35.5 kilograms/meters squared HEENT:? normocephalic. Atraumatic. Pupils equal and round. EOM intact. Sclerae anicteric.?Mucous membranes dry. Neck:??No JVD. supple. Thyroid without palpable nodules. Respiratory:?Lungs sounds clear to auscultation bilaterally. RR unlabored. No intercostal muscle use. Cardiovascular:??Regular rate and rhythm with normal S1-S2. No murmurs, gallops or rubs. Gastrointestinal:??Abdomen soft, round, nontender to palpation. Positive bowel sounds. No CVA or suprapubic tenderness. Skin:??Warm and dry. No rashes or lesion. Normal for ethnicity. Extremities:??No edema. Radial and pedal pulses palpable and equal. Moves all 4 extremities with full strength. Neurological:??Alert. Oriented x4. No focal findings. Psychiatric:??Pleasant. mildly anxious. cooperative with examination. Objective Data Vital Signs Vital Signs: Vital Signs - 24 hr 08/02/22 10:50 08/02/22 12:00 08/02/22 16:00 Temperature 98.6 F Pulse Rate 89 83 84 Respiratory Rate 18 Blood Pressure 140/90 Pulse Oximetry 100 08/02/22 20:00 08/03/22 04:00 08/02/22 20:00 Temperature 98.2 F 97.9 F Pulse Rate 94 73 92 Respiratory Rate 18 20 Blood Pressure 140/91 H 149/91 H Pulse Oximetry 100 96 08/03/22 00:00 08/03/22 04:00 Temperature Pulse Rate 77 70 Respiratory Rate Blood Pressure Pulse Oximetry Intake/Output Intake/Output: Intake & Output 07/31/22 08/01/22 08/02/22 08/03/22 23:59 23:59 23:59 23:59 Intake Total 740 1120 Output Total 300 100 Balance 440 1020 Meds/Results Medications: Active Medications Generic Name Dose Route Start Last Admin Trade Name Freq PRN Reason Stop Dose Admin Acetaminophen 650 mg 08/02/22 06:29 Acetaminophen 325 Mg Tablet PO Q4H PRN
[2022-08-03 12:00] VITALS: PULSE 95
[2022-08-03 12:02] LABS: Glucose Point of Care 107 mg/dl (65-105)
[2022-08-03 13:50] VITALS: BP 129/92; PULSE 60; RESP 16; TEMP 36.2; O2SAT 100
[2022-08-03 15:52] LABS: Glucose Point of Care 102 mg/dl (65-105)
[2022-08-03 16:00] VITALS: PULSE 89
--- NOTE | 2022-08-03 16:24 | PM.DS ---
DS: Admitting Diagnosis Discharge Date 08/03/22 1624 Admitting Diagnosis Hypoglycemia Hypokalemia Hypomagnesemia Abnormal urine DS: Discharge Diagnosis Discharge Diagnosis (1) Hypoglycemia: Code(s): E16.2 - Hypoglycemia, unspecified Status: Acute (2) Acute hypokalemia: Code(s): E87.6 - Hypokalemia Status: Acute (3) Hypomagnesemia: Code(s): E83.42 - Hypomagnesemia Status: Acute (4) Abnormal urine: Code(s): R82.90 - Unspecified abnormal findings in urine Status: Acute (5) Lupus: Code(s): M32.9 - Systemic lupus erythematosus, unspecified Status: Chronic (6) Raynaud disease: Qualifiers: Raynaud?s-associated gangrene presence: without gangrene Qualified Code(s): I73.00 - Raynaud's syndrome without gangrene Code(s): I73.00 - Raynaud's syndrome without gangrene Status: Chronic DS: Summary Hospital Course Reason for hospitalization: abnormal labs Hospital Course: Nara Adair is a 47 yo female with history of gastric bypass and lupus. She presented to the ER for evaluation of low blood sugar. She felt extremely weak for 24 hours prior to admission and has had tingling to her face and arms, as well as spasms in her hands.? She reports prior to this she was in her usual state of health.? She has no change in medications, diet or recent illness.? She does endorse mild diarrhea for the past 2 days, however this is not abnormal for her following her gastric bypass 2 years ago when she eats certain foods.? She has had no sick contacts.? She? endorses taking her boyfriend's Lasix and potassium pill at home because she was feeling funny.? She reports issues with her potassium level in the past but is not on any supplements at this time.? Home medications include hydroxychloroquine for lupus, omeprazole, fluoxetine, Michelle and vitamin-D. ? EMS report states the patient was unable to open her mouth or move her head when they arrived on the scene.? She was alert but slightly confused.? She was dizzy, cool and clammy to touch.? Glucose was noted to be 67, and she was given half tube of oral glucose with improvement in symptoms.? Upon arrival in the ED her glucose was noted to be 28 she was given additional dose of oral glucose with improvement in blood glucose to 167.? Vital signs were temp 97.9? F, pulse 66, respirations 20, blood pressure 132/81, SpO2 99% on room air. lab work did show low potassium 2.5, magnesium 1.2, sodium 137, chloride 95, TCO2 23, anion gap 19, BUN 9 and creatinine 0.7.? CBC was unremarkable.? UA showed clear yellow urine with 1+ protein, 1+ glucose, 2+ ketones, negative nitrates, 1+ bili, trace leukocytes, WBC 20 1-30, but moderate epi cells.? Patient was sinus rhythm without ectopy on telemetry.? The patient was treated with 40 mEq IV and p.o. potassium chloride, 2 L of normal saline.? Upon arrival to the floor patient was noted to have a blood sugar of 34 she was awake at that time.? Nursing gave the patient 2 juices and her food was ordered.? Recheck blood glucose was less than 20.? She was given an amp of D50 and started on D10 IV fluids.? Patient was admitted for management of acute hypoglycemia, hypokalemia and hypomagnesemia. She was placed on D10 infusion and blood sugar monitoring every 4 hours. Her blood sugar ranged from 49 to 145 on dextrose fluids. TSH, cortisol and beta-hydroxybutyrate were within normal limits. C-peptide and insulin-like GF I were drawn and pending. CT abd/pelvis was obtained and did not show insulinoma. On hospital day 2 the patient had an episode of Raynaud phenomenon and blood sugar drawn on that extremity was 63 mg/dL, but 95 when drawn in an alternate area. Dextrose fluids were stopped. She was given lunch and repeat blood sugars were stable >2 hours following eating. Additionally, she was monitored on telemetry d/t hypokalemia. No ectopy was noted. Magnesium was 1.2 on admission and replaced with 4 grams M
[2022-08-06 10:12] LABS: C-Peptide 3.63 ng/mL (0.80-3.85)
[2022-08-06 14:27] LABS: Insulin Level Total 11.1 uIU/mL (<=19.6)
== END 2022-08-03 18:20 | disposition home or self-care (01) ==
LOC: ANHED 04:56 → ANH2MED 06:52
PROVIDERS: Student in an Organized Health Care Education/Training Program; Admitting Provider Internal Medicine; Emergency Provider Emergency Medicine; Visit Provider Nurse Practitioner Family
DX: E16.2 Hypoglycemia, unspecified (principal); E87.6 Hypokalemia; E83.42 Hypomagnesemia; R82.90 Unspecified abnormal findings in urine; M32.9 Systemic lupus erythematosus, unspecified; Z98.84 Bariatric surgery status; F32.A Depression, unspecified; K21.9 Gastro-esophageal reflux disease without esophagitis; I73.00 Raynaud's syndrome without gangrene; Z90.49 Acquired absence of other specified parts of digestive tract; K43.9 Ventral hernia without obstruction or gangrene; J98.11 Atelectasis; Z79.1 Long term (current) use of non-steroidal anti-inflammatories (NSAID); Z79.899 Other long term (current) drug therapy; Z83.3 Family history of diabetes mellitus
CPT/HCPCS: 36415; 36569; 74178; 80048; 81001; 82010; 82533; 82947; 82948; 83525; 83735; 84132; 84305; 84443; 84681; 85025; 85027; 85055; 87086; 87088; 96365; 96366; 96374; 96375; 99285; A9270; C1751; G0378; J3360; J3475; J3480; J7030; J7040; Q9967

== ENCOUNTER 2022-08-18 13:59 | Emergency (ER) | payer OTHER, SELFPAY ==
[2022-08-18 14:08] VITALS: BP 129/98; PULSE 117; RESP 16; TEMP 36.9; O2SAT 98
[2022-08-18 14:11] VITALS: BP 129/98; PULSE 117; RESP 16; TEMP 36.9; O2SAT 98
--- NOTE | 2022-08-18 14:26 | PC.NURSE ---
blood sugar checked during initial exam and was 118
--- NOTE | 2022-08-18 14:33 | ED.GENADULT ---
HPI - General Adult General Chief complaint: Recheck/Abnormal Lab/Rx Stated complaint: LOW BLOOD SUGAR Time Seen by Provider: 08/18/22 14:35 Source: patient, RN notes reviewed and old records reviewed Mode of arrival: ambulatory Limitations: no limitations History of Present Illness HPI narrative: 47-year-old female with a history of lupus presents to the [facility] with concerns for low blood sugar. Patient reports that her blood sugar at home was 20. Wanted to have it rechecked Patient also states that she has had a history of low potassium and wanted that rechecked Unable to complete exam, patient left clinic prior to complete evaluation Related Data Home Medications Medication Instructions Recorded Confirmed hydroxychloroquine 200 mg tablet 400 mg PO BID 09/30/21 08/18/22 (Plaquenil) amitriptyline 10 mg tablet 10 mg PO HS 08/18/22 08/18/22 potassium chloride 20 mEq 20 meq PO DAILY 08/18/22 08/18/22 tablet,extended release(part/cryst) Allergies Allergy/AdvReac Type Severity Reaction Status Date / Time No Known Allergies Allergy Verified 08/18/22 18:40 Review of Systems Review of Systems: All systems reviewed & are unremarkable except as noted in HPI and below Constitutional: Constitutional: Reports no additional constitutional complaints, Denies chills and Denies fever(s) Eyes: Eyes: Reports no additional eye complaints ENT: Reports system reviewed and no additional complaints, except as documented Cardiovascular: Cardiovascular: Reports no additional cardiovascular complaints Respiratory: Respiratory: Reports no additional respiratory complaints Gastrointestinal: Gastrointestinal: Reports no additional gastrointestinal complaints Musculoskeletal: Musculoskeletal: Reports no additional musculoskeletal complaints Integumentary/Breasts: Skin/Breast: Reports system reviewed and no additional complaints, except as docu Neurologic: Reports system reviewed and no additional complaints, except as documented Psychiatric: Psychiatric: Reports no additional psychiatric complaints Endocrine: Endocrine: Reports as per HPI Allergic/Immunologic: Allergic/Immunologic: Reports no additional allergic/immunologic complaints [facility] Past Medical History Medical History Cystic mesothelioma (05/2016) Eczema Gastroesophageal reflux disease Gastrojejunal anastomotic stricture Migraines Systemic lupus erythematosus Surgical History Surgical History (Updated 08/18/22 @ 19:52 by Masha Yeung PA-C) History of excision of lesion Solar lentigo from the left lateral canthus. History of gastric bypass (2010) x 2. History of laparoscopic cholecystectomy (2003) History of tonsillectomy History of ventral hernia repair (05/2016) Incarcerated ventral hernia repair with extensive adhesiolysis. 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 Family History Family History Mother Diabetes mellitus Cancer Hypertension Colon cancer Father Diabetes mellitus Hypertension FH: CABG (coronary artery bypass surgery) Sibling Hypothyroid Hypertension Social History Social History (Updated 08/18/22 @ 19:50 by Masha Yeung PA-C) Social History: The patient is and lives in [place] with her 2 children. 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 She designates her father, Maikel Adair, as her surrogate decision maker and she wishes to be a full code. Spiritual care concerns: No Comments At the time of my signature, I reviewed and agree with the nursing past medical, surgical, social, and family history. There is no relevant family history pertinent to the patient complaint. Exam Const: General: healthy appearing, no acute distress and alert N
[2022-08-19 08:06] LABS: Glucose Point of Care 118 mg/dl (65-105)
== END 2022-08-18 14:43 | disposition left against medical advice (07) ==
PROVIDERS: Emergency Provider Nurse Practitioner; PCP Physician Assistant
DX: Z03.89 Encounter for observation for other suspected diseases and conditions ruled out (principal); K21.9 Gastro-esophageal reflux disease without esophagitis; M32.9 Systemic lupus erythematosus, unspecified
CPT/HCPCS: 82948; 99212; G0463

== ENCOUNTER 2022-08-18 14:53 | Observation (INO) | payer BC, OTHER, SELFPAY ==
--- NOTE | ~2022-08-18 | CT_ITS ---
EXAMINATION: CT abdomen pelvis w con DATE: 08/18/2022 17:07 INDICATION: Abdominal pain TECHNIQUE: Computed tomography (CT) of the abdomen and pelvis was performed with 100 CC Omnipaque 350 intravenous contrast. Automated exposure control and iterative reconstruction technique were employe d. Exam dose: 1047.55 mGy-cm total exam DLP. COMPARISON: 08/03/2022 CT abdomen pelvis without and with IV contrast material FINDINGS: There is minimal atelectasis at the lung bases. Normal heart size. No pericardial or pleura l effusion. There is diffuse hepatic steatosis. Status post cholecystectomy. No bile duct or pancreatic duct susp icious dilatation is noted. No pancreatic mass lesion or calcification. Normal splenic size. Normal morphology of the adrenal glands. Approximately 6 mm right renal cyst. The kidneys are otherwise unremarkable. No significant interval change of multilocular cystic lesion along the anterior aspect of the uterus and adnexal areas since 08/03/2022, previously reported as benign cystic mesothelioma at surgery. Small sliding hiatal hernia. Status post gastric bypass surgery. Normal appendix. Diverticulosis of t he colon; no CT evidence of diverticulitis. No bowel obstruction, bowel wall thickening, pneumatosis or intraperitoneal free air. There is a supraumbilical midline ventral hernia containing a loop of nonobstructed small bowel, situ ated immediately above a small fat-containing umbilical hernia. There is a surgical excision incision along the supraumbilical and infraumbilical anterior mid abdominal wall. IMPRESSION: No significant change since 08/03/2022 Reviewed, dictated and finalized at [facility]. Reviewed, dictated and finalized at location [facility].
[2022-08-18 15:01] VITALS: BP 147/98; PULSE 120; RESP 16; TEMP 36.8; O2SAT 95
[2022-08-18 15:04] LABS: Glucose Point of Care 114 mg/dl (65-105)
[2022-08-18 16:01] LABS: Basophils Absolute Auto 0.1 K/mm3 (0.0-0.1); Basophils Percent Auto 1.3 % (0.2-1.2); Eosinophils Percent Auto 0.3 % (0-4.4); Hemoglobin 15.2 g/dL (12.0-15.0); Immature Granulocyte Absolute 0.01 K/mm3 (0.00-0.031); Immature Granulocyte Percent A 0.1 % (0-0.5); Lymphocytes Absolute Auto 3.64 K/mm3 (0.9-3.2); Lymphocytes Percent Auto 50.6 % (18.3-44.2); Mean Corpuscular HGB Conc 33.8 g/dl (32-36); Mean Corpuscular Hemoglobin 32.6 pg (26-34); Mean Corpuscular Volume 96.6 fl (80-100); Mean Platelet Volume 8.8 fl (7.4-10.4); Monocytes Absolute Auto 0.4 K/mm3 (0.1-0.6); Monocytes Percent Auto 5.7 % (2.6-8.5); Platelet Count Result 367 k/mm3 (150-375); Red Blood Count 4.66 M/mm3 (4.2-5.4); Red Cell Distribution Width 13.6 % (11.5-14.5); White Blood Count 7.2 K/mm3 (4.5-10.0)
--- NOTE | 2022-08-18 16:07 | ED.GENADULT ---
HPI - General Adult General Chief complaint: Recheck/Abnormal Lab/Rx Stated complaint: low blood sugar Time Seen by Provider: 08/18/22 15:56 Source: patient Mode of arrival: ambulatory Limitations: no limitations History of Present Illness HPI narrative: Patient is 47 years old -Nepalese female drove herself to the emergency room because of low blood glucose. Patient was told over 1 week ago that her blood glucose is low and her potassium level is low. Patient brought a glucometer to check her blood pressure daily. Been going between 67 and 147 over the last 1 week, today was 20. Patient had on and just prior to arrival to the emergency room, blood glucose on arrival was 149. Patient reported feeling terrible this morning. Patient was scheduled to see her primary physician today for hypoglycemia evaluation. History of systemic lupus. Patient does not smoke or drink or uses drugs to currently feeling okay. Except some abdominal pain for a while she denies any fever, chills, nausea, vomiting. Related Data Home Medications Medication Instructions Recorded Confirmed bupropion HCl 75 mg tablet 75 mg PO BID 09/30/21 01/16/22 fexofenadine 180 mg tablet 180 mg PO DAILY PRN Allergy 09/30/21 01/16/22 (Allergy Relief (fexofenadine)) Symptoms hydroxychloroquine 200 mg tablet 200 mg PO BID 09/30/21 01/16/22 (Plaquenil) omega-3 fatty acids 1,000 mg PO DAILY 09/30/21 01/16/22 amitriptyline 10 mg tablet mg 08/18/22 fluoxetine 60 mg tablet mg 08/18/22 omeprazole 20 mg capsule,delayed mg 08/18/22 release potassium chloride 20 mEq meq PO 08/18/22 tablet,extended release(part/cryst) Allergies Allergy/AdvReac Type Severity Reaction Status Date / Time No Known Allergies Allergy Verified 08/18/22 18:40 Review of Systems Review of Systems: All systems reviewed & are unremarkable except as noted in HPI and below PMFSH Past Medical History Medical History BMI 36.0-36.9,adult Colon cancer screening Cystic mesothelioma (~05/2016) Eczema Gastrojejunal anastomotic stricture GERD (gastroesophageal reflux disease) Lupus (systemic lupus erythematosus) Migraines Surgical History Surgical History Gastric bypass status for obesity History of excision of lesion Solar lentigo from the left lateral canthus. History of gastric bypass (~2010) x 2. History of laparoscopic cholecystectomy (~2003) History of tonsillectomy History of ventral hernia repair (~05/2016) Incarcerated ventral hernia repair with extensive adhesiolysis. 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 Family History Family History Mother Diabetes mellitus Cancer Hypertension Colon cancer Father Diabetes mellitus Hypertension FH: CABG (coronary artery bypass surgery) Sibling Hypothyroid Hypertension Social History Social History Social History: the patient is and lives in [place] with her 2 children. 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 She wishes to be a full code. Her father, Maikel Adair, as her surrogate decision maker. Smoking status: Never smoker Alcohol intake: current Alcohol use details: A COUPLE/MONTH Substance use: never Substance use type: does not use Spiritual care concerns: No Exam Narrative: General appearance: Well-developed, well-nourished Skin: Normal color Head: Normocephalic, nontraumatic Eyes: Clear conjunctiva ENT: Oropharynx normal, ears normal, nose normal Neck: Supple, nontender Chest and respiratory: Airway patent, no respiratory distress, no accessory muscle use Heart: Regular rate/rhythm Abdomen: Soft, mild tenderness across mid ab
[2022-08-18 16:22] LABS: Anion Gap 17 mmol/L (8-16); Blood Urea Nitrogen 13 mg/dL (7-17); Carbon Dioxide 26 mmol/L (22-30); Chloride 97 mmol/L (98-107); Estimated CRCL calculation 95 ml/min; Estimated Glomerular Filt Rate > 60; Glucose 103 mg/dL (65-110); Potassium 4.2 mmol/L (3.4-5.0); Sodium 140 mmol/L (137-145)
[2022-08-18 16:28] LABS: Appearance Urine Clear (Clear); Bilirubin Urine Negative (Negative); Blood Urine Trace-lysed (Negative); Color Urine Yellow (Yellow); Glucose Urine UA Negative (Negative); Ketones Urine Trace mg/dL (Negative); Leukocyte Esterase Ur 1+ LEU/UL (Negative); Nitrate Urine Negative (Negative); Protein Urine 1+ mg/dL (Negative); Specific Grav Ur >= 1.030 (1.001-1.035); pH Urine 5.5 (5.0-9.0)
[2022-08-18 16:37] LABS: Pregnancy On Board Control Positive; Urine Pregnancy Test Negative
[2022-08-18 16:54] LABS: Bacteria Urine Trace /hpf; Mucus Urine Rare /lpf; Squamous Epithelial Cell Urine Many /hpf (Few); WBC Urine 16-20 /hpf
[2022-08-18 16:55] LABS: Add Urine Microscopic? YES
[2022-08-18 17:39] LABS: Beta-Hydroxybutyrate/Acetoacetate 0.06 mmol/L (0.02-0.27)
[2022-08-18 18:00] VITALS: BP 130/95; PULSE 97; RESP 18; TEMP 36.3; O2SAT 98
[2022-08-18 18:21] LABS: Glucose Point of Care 100 mg/dl (65-105)
--- NOTE | 2022-08-18 18:44 | PC.NURSE ---
Pt offered a diet soda and sandwich at this time.
--- NOTE | 2022-08-18 19:01 | PC.NURSE ---
Pt unable to give urine sample at this time.
[2022-08-18 19:26] LABS: Glucose Point of Care 102 mg/dl (65-105)
[2022-08-18 19:28] VITALS: BP 137/88; PULSE 92; RESP 18; O2SAT 100
--- NOTE | 2022-08-18 19:35 | PC.NURSE ---
report called and given to landon DELGADO 19:32
--- NOTE | 2022-08-18 19:50 | ADMGEN ---
This patient, Nara Adair, was admitted to [address] [place] [address] Room 312-01. Patient/family oriented to hospital policies and general routines including ID bracelet, bed and alarms, visiting hours, pain management, procedures, bathroom and other care routines, personal items, smoking policy, room service/diet, and visiting hours. Information on how to activate the Rapid Response Team has been discussed. Patient/Family are encouraged to report perceived risks to care and to ask questions if they do not understand what they are told or what they should do.
--- NOTE | 2022-08-18 21:00 | PM.IMHP ---
H&P: HPI History of Present Illness Date/Time: 08/18/22 21:00 Chief Complaint: Low blood sugar. Narrative: This is a very pleasant 47-year-old female status post gastric bypass with history of incarcerated ventral hernia secondary to adhesions who presented to the emergency department earlier today via private vehicle from home for evaluation of low blood sugar. A week and half ago she had labs drawn and she was told that she had mild hypoglycemia and hypokalemia. She purchased a glucometer and she has been checking her glucose daily, which has range from 67 and 147 over the past 1 week. This morning she was quite nauseated and felt a bit foggy so she checked her glucose and reports that it was as low as 20. She was given a half amp of dextrose in the ER and her glucose has been stable in the low 100s. Looking back to her previous visits, she has had incidences of hypoglycemia and it was felt that she should be placed in the hospital overnight for closer monitoring. With further questioning she admits that she has not had much of an appetite for the last 3 days and she has had several episodes of emesis including ongoing nausea. She is not diabetic or prediabetic and she is not on any medications which could be causing hypoglycemia. Her weight has remained stable. She denies ingesting any medications that are not prescribed to her. Review of Systems Review of Systems: Twelve systems were reviewed. No fever, chills, or sweats. No cold or flu symptoms. No chest pain or shortness of breath. No hematemesis, melena, or hematochezia. No dysuria. Except as documented, all other systems were reviewed and are negative. [facility] Past Medical History Medical History Cystic mesothelioma (05/2016) Eczema Gastroesophageal reflux disease Gastrojejunal anastomotic stricture Migraines Systemic lupus erythematosus Surgical History Surgical History History of excision of lesion Solar lentigo from the left lateral canthus. History of gastric bypass (2010) x 2. History of laparoscopic cholecystectomy (2003) History of tonsillectomy History of ventral hernia repair (05/2016) Incarcerated ventral hernia repair with extensive adhesiolysis. 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 Family History Family History Mother Diabetes mellitus Cancer Hypertension Colon cancer Father Diabetes mellitus Hypertension FH: CABG (coronary artery bypass surgery) Sibling Hypothyroid Hypertension Social History Social History (Updated 08/18/22 @ 22:47 by Masha Yeung PA-C) Social History: The patient is and lives in [place] with her 2 children. 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 She designates her father, Maikel Adair, as her surrogate decision maker and she wishes to be a full code. Spiritual care concerns: No Meds Home Medications and Allergies Home Medications Medication Instructions Recorded Confirmed Type hydroxychloroquine 200 mg tablet 400 mg PO BID 09/30/21 08/18/22 History (Plaquenil) amitriptyline 10 mg tablet 10 mg PO HS 08/18/22 08/18/22 History potassium chloride 20 mEq 20 meq PO DAILY 08/18/22 08/18/22 History tablet,extended release(part/cryst) Allergies Allergy/AdvReac Type Severity Reaction Status Date / Time koolaid Allergy Unknown Uncoded 08/18/22 21:37 Vital Signs Vital Signs - 24 hr 08/18/22 15:01 08/18/22 19:28 Temperature 98.2 F Pulse Rate 120 H 92 Respiratory Rate 16 18 Blood Pressure 147/98 H 137/88 Pulse Oximetry 95 100 Oxygen Delivery Room Air Exam Narrative: General: Well-developed female in the semi-Diaz position in bed in no distress. Weight: 96 kilograms. BM
[2022-08-18 22:05] LABS: Glucose Point of Care 116 mg/dl (65-105)
[2022-08-18 22:05] LABS: Glucose Point of Care 117 mg/dl (65-105)
[2022-08-18 22:19] LABS: Hemoglobin A1C 4.8 % (<5.7)
[2022-08-19] MEDS: DEXTROSE 5%/0.9% SOD CHL 1,000 ML 100 ML IV CONT ×3 (00:01→20:36)
[2022-08-19 00:16] LABS: Glucose Point of Care 98 mg/dl (65-105)
[2022-08-19] MEDS: ONDANSETRON INJ 4 MG/2 ML VIAL IV PUSH (03:00)
[2022-08-19 04:28] LABS: Glucose Point of Care 119 mg/dl (65-105)
[2022-08-19 05:52] VITALS: BP 139/98; PULSE 85; RESP 18; TEMP 36.1; O2SAT 97
[2022-08-19 06:57] LABS: Anion Gap 15 mmol/L (8-16); Blood Urea Nitrogen 12 mg/dL (7-17); Calcium 8.4 mg/dL (8.4-10.2); Carbon Dioxide 25 mmol/L (22-30); Chloride 100 mmol/L (98-107); Estimated CRCL calculation 111 ml/min; Estimated Glomerular Filt Rate > 60; Glucose 99 mg/dL (65-110); Magnesium 1.9 mg/dL (1.6-2.3); Potassium 3.8 mmol/L (3.4-5.0); Sodium 140 mmol/L (137-145)
[2022-08-19 08:00] VITALS: PULSE 88; RESP 12; O2SAT 100
[2022-08-19 08:19] LABS: Glucose Point of Care 112 mg/dl (65-105)
[2022-08-19 08:25] VITALS: BP 140/109; PULSE 88; RESP 12; TEMP 36.2; O2SAT 100
[2022-08-19] MEDS: POTASSIUM CHLORIDE 20 MEQ TABLET.ER PO (09:17)
[2022-08-19] MEDS: HYDROXYCHLOROQUINE SULFATE 200 MG TABLET 400 MG PO (09:17)
[2022-08-19 11:18] VITALS: BMI 38.5
[2022-08-19 11:46] LABS: Glucose Point of Care 96 mg/dl (65-105)
--- NOTE | 2022-08-19 12:53 | PM.IMPN ---
Progress Note: A&P Assessment and Plan (1) Hypoglycemia: Code(s): E16.2 - Hypoglycemia, unspecified Status: Acute Assessment and Plan: She has had nausea and poor oral intake over the last several days which may very well be contributing to her hypoglycemia. She has had gastric bypass with redo x2 and I wonder if perhaps she has post bariatric hypoglycemia. Insulin and C-peptide pending (2) Systemic lupus erythematosus: Code(s): M32.9 - Systemic lupus erythematosus, unspecified Status: Acute Assessment and Plan: Continue hydroxychloroquine. (3) Status post gastric bypass for obesity: Code(s): Z98.84 - Bariatric surgery status Status: Acute Subjective Date/time seen: 08/19/22 12:53 Feeling better Exam Narrative: General: Well-developed female in the semi-Diaz position in bed in no distress. Weight: 96 kilograms. BMI: 37.5. HEENT: PERRL, EOMI. Sclera anicteric. Tacky mucous membranes. Neck: Supple. Respiratory: Lungs are clear to auscultation bilaterally. Cardiovascular: Regular rate and rhythm with S1-S2. Gastrointestinal: Abdomen is soft, nontender, and nondistended with positive bowel sounds. Multiple abdominal incisions from prior gastric bypass Skin: Warm and dry. No rash or lesions on limited exam. Extremities: No cyanosis, clubbing, or edema. Radial and pedal pulses intact. Neurological: Alert. Cranial nerves 2-12 are grossly intact. No gross focal deficits to casual conversation. Psychiatric: Pleasant and cooperative with normal mood and affect. Judgment and insight intact. Objective Data Vital Signs Vital Signs: Vital Signs - 24 hr 08/18/22 15:01 08/18/22 19:28 08/18/22 18:00 Temperature 98.2 F 97.4 F L Pulse Rate 120 H 92 97 Respiratory Rate 16 18 18 Blood Pressure 147/98 H 137/88 130/95 H Pulse Oximetry 95 100 98 Oxygen Delivery Room Air 08/18/22 22:27 08/19/22 05:52 08/19/22 08:25 Temperature 96.9 F L 97.1 F L Pulse Rate 85 88 Respiratory Rate 18 12 Blood Pressure 139/98 H 140/109 H Pulse Oximetry 97 100 Oxygen Delivery Room Air 08/19/22 08:00 Temperature Pulse Rate 88 Respiratory Rate 12 Blood Pressure Pulse Oximetry 100 Oxygen Delivery Room Air Intake/Output Intake/Output: Intake & Output 08/16/22 08/17/22 08/18/22 08/19/22 23:59 23:59 23:59 23:59 Intake Total 1490 Output Total 400 Balance 1090 Meds/Results Medications: Active Medications Generic Name Dose Route Start Last Admin Trade Name Juanq PRN Reason Stop Dose Admin Acetaminophen 650 mg 08/18/22 18:37 Acetaminophen 325 Mg Tablet PO Q4H PRN Mild Pain (1-3) or Fever Amitriptyline HCl 10 mg 08/19/22 21:00 Amitriptyline Hcl 10 Mg Tablet PO HS VERONICA Dextrose 12.5 gm 08/18/22 18:37 Dextrose 50% 25 Gm/50 Ml Syringe IV PUSH PRN PRN Hypoglycemia Protocol Glucagon 1 mg 08/18/22 18:37 Glucagon For Inj 1 Mg Vial IM PRN PRN Hypoglycemia Protocol Glucose 15 gm 08/18/22 18:37 Glucose Oral Gel 15 Gm Of Glucse In 37.5 Gm Tube PO PRN PRN Hypoglycemia Protocol Hydroxychloroquine Sulfate 400 mg 08/19/22 09:00 08/19/22 09:17 Hydroxychloroquine Sulfate 200 Mg Tablet PO 400 mg DAILY VERONICA Administration Dextrose/Sodium Chloride 1,000 mls @ 100 mls/hr 08/18/22 23:05 08/19/22 09:18 Dextrose 5% Sodium Chloride 0.9% IV CONT 100 mls/hr .Q10H VERONICA Administration Potassium Chloride 20 meq 08/19/22 09:00 08/19/22 09:17 Potassium Chloride 20 Meq Tablet.Er PO 20 meq DAILY VERONICA Administration Radiology Results: ITS Impressions Abdomen/Pelvis CT 08/18/22 17:14 IMPRESSION: No significant change since 08/03/2022 Labs Labs: Laboratory Results - last 24 hr 08/18/22 08/18/22 08/18/22 15:00 15:06 15:12 WBC RBC Hgb Hct MCV MCH MCHC RDW Plt Count MPV Immature Gran % (
[2022-08-19] MEDS: ACETAMINOPHEN 325 MG TABLET 650 MG PO (13:06)
[2022-08-19 14:00] VITALS: BP 141/90; PULSE 81; RESP 14; TEMP 36.4; O2SAT 98
[2022-08-19 16:14] LABS: Amphetamine Screen Urine Negative (Negative); Barbiturate Screen Urine Negative (Negative); Benzodiazepines Screen Urine Negative (Negative); Cannabinoid Screen Urine Negative (Negative); Cocaine Screen Urine Negative (Negative); Methadone Screen Urine Negative (Negative); Opiate Screen Urine Negative (Negative); Phencyclidine Screen Urine Negative (Negative)
[2022-08-19 16:45] LABS: Glucose Point of Care 93 mg/dl (65-105)
[2022-08-19] MEDS: AMITRIPTYLINE HCL 10 MG TABLET PO (20:36)
[2022-08-19 20:42] LABS: Glucose Point of Care 109 mg/dl (65-105)
[2022-08-19] MEDS: MELATONIN 5 MG TABLET PO (21:50)
[2022-08-19 22:00] VITALS: BP 126/90; PULSE 79; RESP 20; TEMP 36.9; O2SAT 99
[2022-08-19 23:52] LABS: Total Triiodothyronine (T3) 1.16 NG/ML (0.97-1.69)
[2022-08-20 04:22] LABS: Glucose Point of Care 99 mg/dl (65-105)
[2022-08-20 04:22] LABS: Glucose Point of Care 111 mg/dl (65-105)
[2022-08-20 05:11] VITALS: BP 126/85; PULSE 78; RESP 20; TEMP 36.5; O2SAT 100
[2022-08-20] MEDS: DEXTROSE 5%/0.9% SOD CHL 1,000 ML 100 ML IV CONT (06:52)
[2022-08-20 08:00] VITALS: PULSE 78; RESP 20; O2SAT 100
[2022-08-20 08:07] LABS: Glucose Point of Care 103 mg/dl (65-105)
[2022-08-20] MEDS: POTASSIUM CHLORIDE 20 MEQ TABLET.ER PO (08:45)
[2022-08-20] MEDS: HYDROXYCHLOROQUINE SULFATE 200 MG TABLET 400 MG PO (08:45)
[2022-08-20 11:32] LABS: Glucose Point of Care 120 mg/dl (65-105)
--- NOTE | 2022-08-20 13:13 | PM.DS ---
DS: Admitting Diagnosis Discharge Date August 20, 2022 Admitting Diagnosis hypoglycemia DS: Discharge Diagnosis Discharge Diagnosis (1) Hypoglycemia: Code(s): E16.2 - Hypoglycemia, unspecified Status: Acute Assessment and Plan: She has had nausea and poor oral intake over the last several days which may very well be contributing to her hypoglycemia. She has had gastric bypass with redo x2 and I wonder if perhaps she has post bariatric hypoglycemia. Insulin and C-peptide pending. hypoglycemia has resolved. Patient will need follow-up with Endocrinology. Case Management has given the patient a name of the charter coordinator. Patient is aware she needs to set this up and has asked that she can do this on her own. (2) Systemic lupus erythematosus: Code(s): M32.9 - Systemic lupus erythematosus, unspecified Status: Acute Assessment and Plan: Continue hydroxychloroquine. (3) Status post gastric bypass for obesity: Code(s): Z98.84 - Bariatric surgery status Status: Acute DS: Summary Hospital Course Hospital Course: Patient is a 47-year-old female history gastric bypass surgery. Has had issues with hypoglycemia in the past. Came in this time with symptomatic hypoglycemia and a subsequent resolved. She did require some D5 but otherwise has been doing well for the last 10 or 12hours. She is eating her blood sugars have been well. Likely related to malabsorption from her gastric bypass and decreased p.o. intake. C-peptide and insulin are pending. Patient needs to follow-up with charter coordinator. Names of charter coordinator have been given to the patient and she wants to Schedule her own follow-up appointment. Time Spent with Patient Time attestation: Total time spent providing and/or coordinating discharge services: Exam Narrative: General: Well-developed female in the semi-Diaz position in bed in no distress. Weight: 96 kilograms. BMI: 37.5. HEENT: PERRL, EOMI. Sclera anicteric. Tacky mucous membranes. Neck: Supple. Respiratory: Lungs are clear to auscultation bilaterally. Cardiovascular: Regular rate and rhythm with S1-S2. Gastrointestinal: Abdomen is soft, nontender, and nondistended with positive bowel sounds. Multiple abdominal incisions from prior gastric bypass Skin: Warm and dry. No rash or lesions on limited exam. Extremities: No cyanosis, clubbing, or edema. Radial and pedal pulses intact. Neurological: Alert. Cranial nerves 2-12 are grossly intact. No gross focal deficits to casual conversation. Psychiatric: Pleasant and cooperative with normal mood and affect. Judgment and insight intact. DS: Data Data Completed and Pending Labs on day of discharge: Labs from last 24 hours 08/20/22 08/20/22 08/20/22 11:27 07:43 04:16 POC Capillary Glucose 120 H 103 111 H Free T4 Total T3 Urine Opiates Screen Urine Methadone Screen Ur Barbiturates Screen Ur Phencyclidine Scrn Ur Amphetamine Screen U Benzodiazepines Scrn Urine Cocaine Screen U Cannabinoids Screen 08/19/22 08/19/22 08/19/22 23:52 20:35 16:37 POC Capillary Glucose 99 109 H 93 Free T4 Total T3 Urine Opiates Screen Urine Methadone Screen Ur Barbiturates Screen Ur Phencyclidine Scrn Ur Amphetamine Screen U Benzodiazepines Scrn Urine Cocaine Screen U Cannabinoids Screen 08/19/22 08/19/22 08/19/22 15:46 06:08 06:08 POC Capillary Glucose Free T4 1.10 Total T3 1.16 Urine Opiates Screen Negative Urine Methadone Screen Negative Ur Barbiturates Screen Negative Ur Phencyclidine Scrn Negative Ur Amphetamine Screen Negative U Benzodiazepines Scrn Negative Urine Cocaine Screen Negative U Cannabinoids Screen Negative Discharge Plan Discharge Attending physician on discharge: Dileep Hansen Discharging Clinician: Dileep Hansen Patient Disposition: Home, Self
[2022-08-20 14:00] VITALS: BP 125/92; PULSE 80; RESP 18; TEMP 35.9; O2SAT 99
[2022-08-20 14:03] LABS: Glucose Point of Care 146 mg/dl (65-105)
[2022-08-20 20:35] LABS: C-Peptide 1.37 ng/mL (0.80-3.85)
[2022-08-21 12:42] LABS: Insulin Level Total 1.8 uIU/mL (<=19.6)
== END 2022-08-20 15:30 | disposition home or self-care (01) ==
LOC: ANHED 18:35 → ANH3MEDSUR 21:38
PROVIDERS: Physician Assistant; Admitting Provider Family Medicine; Emergency Provider Emergency Medicine; PCP Physician Assistant; Visit Provider Chiropractor
DX: E16.2 Hypoglycemia, unspecified (principal); M32.9 Systemic lupus erythematosus, unspecified; Z98.84 Bariatric surgery status; D64.9 Anemia, unspecified; E87.6 Hypokalemia; K21.9 Gastro-esophageal reflux disease without esophagitis; Z72.89 Other problems related to lifestyle; Z98.890 Other specified postprocedural states; Z79.891 Long term (current) use of opiate analgesic; Z79.899 Other long term (current) drug therapy
CPT/HCPCS: 36415; 74177; 80048; 80307; 81001; 81025; 82010; 82948; 83036; 83525; 83735; 84439; 84443; 84480; 84681; 85025; 87086; 87088; 96360; 96361; 96374; 99212; 99285; A9270; G0378; G0379; G0463; J2405; J7042; Q9967

== ENCOUNTER 2022-08-21 08:04 | Observation (INO) | payer OTHER, SELFPAY ==
[2022-08-21] VITALS (14 sets, daily range): BP systolic 119–147; BP diastolic 69–102; PULSE 65–94; RESP 16–23; TEMP 35.9–37.1; O2SAT 98–100; BMI 33.5
--- NOTE | ~2022-08-21 | XR_ITS ---
EXAMINATION: XR chest 2V DATE: 08/21/2022 08:50 INDICATION: Weakness. Dizziness. TECHNIQUE: Frontal and lateral views of the chest were obtained. COMPARISON: Chest 2 views 07/23/2020, CT abdomen and pelvis 08/18/2022 FINDINGS: Again seen is mild elevation of right hemidiaphragm. No pneumonia, pleural effusion, or pne umothorax. The heart size is normal. Surgical clips in the right upper quadrant are likely from morro cystectomy. IMPRESSION: 1. No acute cardiopulmonary disease. Reviewed, dictated and finalized at location A.
--- NOTE | 2022-08-21 08:13 | ECG_ITS ---
Measurements Intervals Duncan Rate: 87 P: 52 GA: 146 QRS: 8 QRSD: 90 T: 28 QT: 394 QTc: 475 Interpretive Statements SINUS RHYTHM BASELINE ARTIFACT- I, III, AVL, AVF, V1-V2 NORMAL ECG COMPARED TO ECG 07/24/2020 09:29:46 PROLONGED QT INTERVAL NO LONGER PRESENT Electronically Signed On 08-21-2022 8:28:41 CDT by Alan Chavez D.O.
[2022-08-21 08:14] LABS: Glucose Point of Care 61 mg/dl (65-105)
[2022-08-21 08:35] LABS: Basophils Percent Auto 0.6 % (0.2-1.2); Eosinophils Percent Auto 0.7 % (0-4.4); Hematocrit 40.1 % (37.0-47.0); Hemoglobin 13.1 g/dL (12.0-15.0); Immature Granulocyte Absolute 0.03 K/mm3 (0.00-0.031); Immature Granulocyte Percent A 0.6 % (0-0.5); Lymphocytes Absolute Auto 1.06 K/mm3 (0.9-3.2); Lymphocytes Percent Auto 19.7 % (18.3-44.2); Mean Corpuscular HGB Conc 32.7 g/dl (32-36); Mean Corpuscular Hemoglobin 32.2 pg (26-34); Mean Corpuscular Volume 98.5 fl (80-100); Mean Platelet Volume 9.1 fl (7.4-10.4); Monocytes Absolute Auto 0.2 K/mm3 (0.1-0.6); Monocytes Percent Auto 4.1 % (2.6-8.5); Neutrophils Percent Auto 74.3 % (45.5-73.1); Platelet Count Result 156 k/mm3 (150-375); Red Blood Count 4.07 M/mm3 (4.2-5.4); Red Cell Distribution Width 13.1 % (11.5-14.5); White Blood Count 5.4 K/mm3 (4.5-10.0)
[2022-08-21 08:45] LABS: Anion Gap 7 mmol/L (8-16); Blood Urea Nitrogen 8 mg/dL (7-17); Calcium 8.4 mg/dL (8.4-10.2); Carbon Dioxide 28 mmol/L (22-30); Chloride 104 mmol/L (98-107); Estimated CRCL calculation 90 ml/min; Estimated Glomerular Filt Rate > 60; Glucose 72 mg/dL (65-110); Potassium 3.8 mmol/L (3.4-5.0); Sodium 139 mmol/L (137-145)
--- NOTE | 2022-08-21 08:47 | ED.GENADULT ---
HPI - General Adult General Chief complaint: Weakness Stated complaint: weakness,feels off, hypoglycemia History of Present Illness HPI narrative: Patient is a 47-year-old female who presents to the ER with reports of feeling off. Patient has had a couple of hospitalizations within the last month for reports of low blood sugar as well as low potassium. She reports she took her Accu-Chek this morning and it was 67 and she ate a cheese sandwich afterwards. She woke up around 445 and did not check her blood sugar until 6 AM. She is discharged from the hospital yesterday around 3 PM and she reports she ate 2 tacos for dinner at 4 PM. She had no additional oral intake after that. She does not take any insulin or other antihyperglycemic. Patient does have history of gastric bypass x2. She was referred to endocrinology and is awaiting a phone call back about scheduling her appointment. No symptoms at this time. Related Data Home Medications Medication Instructions Recorded Confirmed hydroxychloroquine 200 mg tablet 400 mg PO DAILY 09/30/21 08/21/22 (Plaquenil) amitriptyline 10 mg tablet 10 mg PO HS 08/18/22 08/21/22 potassium chloride 20 mEq 20 meq PO DAILY 08/18/22 08/21/22 tablet,extended release(part/cryst) blood-glucose meter (OneTouch 08/21/22 08/21/22 Verio Reflect Meter) fluoxetine 60 mg tablet 60 mg PO DAILY 08/21/22 08/21/22 omeprazole 20 mg capsule,delayed 20 mg PO DAILY 08/21/22 08/21/22 release Allergies Allergy/AdvReac Type Severity Reaction Status Date / Time koolaid Allergy Unknown Uncoded 08/21/22 08:09 Review of Systems Review of Systems: All systems reviewed & are unremarkable except as noted in HPI and below Constitutional: Constitutional: Denies chills, Reports fatigue and Denies fever(s) ENT: Denies nasal congestion and Denies sore throat Cardiovascular: Cardiovascular: Denies chest pain, Denies rapid heart rate and Denies radiating jaw, neck or arm pain Respiratory: Respiratory: Denies cough and Denies dyspnea Gastrointestinal: Gastrointestinal: Denies abdominal pain, Denies nausea and Denies vomiting Neurologic: Denies syncope, Denies focal weakness and Denies numbness [facility] Past Medical History Medical History (Updated 08/21/22 @ 18:27 by Audie Kelly MD) Acute kidney injury Anxiety Eczema Gastric outlet obstruction Gastrojejunal anastomotic stricture GERD (gastroesophageal reflux disease) Hypokalemia Lupus (systemic lupus erythematosus) Mass on back Migraines Normal blood sugar Systemic lupus erythematosus Surgical History Surgical History History of excision of lesion Solar lentigo from the left lateral canthus. History of gastric bypass (2010) x 2. History of laparoscopic cholecystectomy (2003) History of tonsillectomy History of ventral hernia repair (05/2016) Incarcerated ventral hernia repair with extensive adhesiolysis. 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 Family History Family History Mother Diabetes mellitus Cancer Hypertension Colon cancer Father Diabetes mellitus Hypertension FH: CABG (coronary artery bypass surgery) Sibling Hypothyroid Hypertension Social History Social History (Updated 08/21/22 @ 15:37 by Gayatri Rivera NP) Social History: The patient is and lives in [place] with her 2 children. 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 She designates her father, Maikel Adair, as her surrogate decision maker and she wishes to be a full code. Code status full code Smoking status: Never smoker Alcohol intake: never Substance use: never Substance use type: does not use Spiritual care concerns: No Exam Narrative: GENERAL: Well-appearing, well-nourished, and in no
[2022-08-21 09:15] LABS: Appearance Urine Clear (Clear); Bilirubin Urine Negative (Negative); Color Urine Yellow (Yellow); Glucose Urine UA Negative (Negative); Ketones Urine Negative (Negative); Leukocyte Esterase Ur 2+ LEU/UL (Negative); Nitrate Urine Negative (Negative); Protein Urine Negative (Negative); Specific Grav Ur >= 1.030 (1.001-1.035); pH Urine 5.5 (5.0-9.0)
[2022-08-21 09:18] LABS: Bacteria Urine Trace /hpf; Mucus Urine Rare /lpf; Squamous Epithelial Cell Urine Moderate /hpf (Few)
[2022-08-21 09:20] LABS: Add Urine Microscopic? YES; Blood Urine Trace-Intact (Negative)
[2022-08-21 11:02] LABS: Glucose Point of Care 48 mg/dl (65-105)
--- NOTE | 2022-08-21 11:02 | PC.NURSE ---
Pt blood sugar was 61 upon arrival and she was given apple juice. Blood sugar rechecked and is 48. Pt given more apple juice, sagrario crackers, and peanut butter. updated.
--- NOTE | 2022-08-21 11:21 | PC.NURSE ---
blood glucose 48 at 1100
--- NOTE | 2022-08-21 11:30 | PC.NURSE ---
Pt given sandwich and fruit cup at this time as well
[2022-08-21 12:39] LABS: Glucose Point of Care 166 mg/dl (65-105)
--- NOTE | 2022-08-21 12:44 | PM.IMHP ---
H&P: HPI History of Present Illness Date/Time: 08/21/22 12:44 Chief Complaint: Weakness Narrative: This is a 47-year-old female patient who was recently discharged on 08/20/2022 for hypo glycemia. The patient has a history lupus and has been on hydroxychloroquine. She also has a history of having gastric bypass surgery with a ventral hernia repair secondary to adhesions. The patient has been dealing with hypoglycemia on several occasions. Her appetite has been less. However she is not diabetic nor is she on any diabetic medications. The patient came to the emergency room because she felt ?off?. She woke up around 445 and did not check her blood sugar until 6:00 a.m. her blood sugars were found to be 61, 48, and 76. Her Damon saw level is normal. She has 2+ leukocyte esterase rbc's 11-20 wbc's 7 and 9 and moderate squamous cell epithelial which could be a contaminant. Her COVID test is negative. Chest x-ray shows no acute cardiopulmonary disease. The patient stated that she has not had a chance to call Endocrinology as of yet. When she was discharged she was given a number to call Endocrinology. The patient currently is talkative and is awake. She has no complaints at this time. I reviewed her medications with her and the patient is no longer on steroids for her lupus but has been on steroids in the past. She states that she hates taking steroids. She said she recently was taking steroids but ran out. The patient has been on hydrochloroquine. After reviewing the side effects hypoglycemia is a severe adverse reaction. Could her hydro chloroquine be causing these problems? The patient initially did not want to stay but I encouraged her to stay overnight. The patient is being admitted to observation status on the date of service of 07/21/2022. Review of Systems Review of Systems: See HPI All systems reviewed & are unremarkable except as noted in HPI and below Constitutional: Constitutional: Reports as per HPI and Reports no additional constitutional complaints Eyes: Eyes: Reports as per HPI and Reports no additional eye complaints ENT: Reports system reviewed and no additional complaints, except as documented and Reports Normal hearing present Cardiovascular: Cardiovascular: Reports no additional cardiovascular complaints Respiratory: Respiratory: Reports no additional respiratory complaints and Reports no additional respiratory complaints Gastrointestinal: Gastrointestinal: Reports as per HPI and Reports no additional gastrointestinal complaints Musculoskeletal: Musculoskeletal: Reports no additional musculoskeletal complaints Integumentary/Breasts: Skin/Breast: Reports system reviewed and no additional complaints, except as docu and Reports as per HPI Neurologic: Reports system reviewed and no additional complaints, except as documented, Reports as per HPI and Reports Normal hearing present Psychiatric: Psychiatric: Reports no additional psychiatric complaints and Reports as per HPI Endocrine: Endocrine: Reports no additional endocrine complaints Hematologic/Lymphatic: Hematologic/Lymphatic: Reports no additional hematologic/lymphatic complaints Allergic/Immunologic: Allergic/Immunologic: Reports no additional allergic/immunologic complaints [facility] Past Medical History Medical History (Updated 08/21/22 @ 15:43 by Gayatri Rivera NP) Acute kidney injury Anxiety Eczema Gastric outlet obstruction Gastrojejunal anastomotic stricture GERD (gastroesophageal reflux disease) Hypokalemia Lupus (systemic lupus erythematosus) Mass on back Migraines Normal blood sugar Systemic lupus erythematosus Surgical History Surgical History History of excision of lesion Solar lentigo from the left lateral canthus. History of gastric bypass (2010) x 2. History of laparoscopic cholecystectomy (2003) History of tonsillectomy History of ventral hernia repair (05/2016) In
[2022-08-21 13:06] LABS: SARS-CoV-2 RNA PCR Negative
[2022-08-21 14:36] LABS: Glucose Point of Care 76 mg/dl (65-105)
[2022-08-21 16:31] LABS: Glucose Point of Care 91 mg/dl (65-105)
[2022-08-21] MEDS: AMITRIPTYLINE HCL 10 MG TABLET PO (20:46)
[2022-08-21 21:03] LABS: Glucose Point of Care 77 mg/dl (65-105)
[2022-08-21 23:07] LABS: Glucose Point of Care 93 mg/dl (65-105)
[2022-08-22] VITALS (7 sets, daily range): BP systolic 124–134; BP diastolic 82–94; PULSE 74–97; RESP 14–20; TEMP 35.8–36.3; O2SAT 98–100
[2022-08-22 03:36] LABS: Glucose Point of Care 83 mg/dl (65-105)
[2022-08-22 06:08] LABS: Glucose Point of Care 86 mg/dl (65-105)
[2022-08-22 06:53] LABS: Basophils Absolute Auto 0.1 K/mm3 (0.0-0.1); Basophils Percent Auto 0.6 % (0.2-1.2); Eosinophils Absolute Auto 0.1 K/mm3 (0-0.3); Hematocrit 38.1 % (37.0-47.0); Hemoglobin 12.3 g/dL (12.0-15.0); Immature Granulocyte Absolute 0.02 K/mm3 (0.00-0.031); Immature Granulocyte Percent A 0.2 % (0-0.5); Lymphocytes Absolute Auto 1.96 K/mm3 (0.9-3.2); Lymphocytes Percent Auto 24.3 % (18.3-44.2); Mean Corpuscular HGB Conc 32.3 g/dl (32-36); Mean Corpuscular Hemoglobin 32.4 pg (26-34); Mean Corpuscular Volume 100.3 fl (80-100); Mean Platelet Volume 9.7 fl (7.4-10.4); Monocytes Absolute Auto 0.3 K/mm3 (0.1-0.6); Monocytes Percent Auto 3.3 % (2.6-8.5); Neutrophils Absolute Auto 5.7 K/mm3 (1.3-6.7); Neutrophils Percent Auto 70.6 % (45.5-73.1); Platelet Count Result 141 k/mm3 (150-375); Red Cell Distribution Width 13.2 % (11.5-14.5); White Blood Count 8.1 K/mm3 (4.5-10.0)
[2022-08-22 07:06] LABS: Lactic Acid Reflex 1.6 mmol/L (0.7-2.0)
[2022-08-22 07:07] LABS: Alanine Aminotransferase 32 U/L (6-35); Albumin Level 3.5 g/dL (3.5-5.1); Alkaline Phosphatase 75 U/L (38-126); Anion Gap 8 mmol/L (8-16); Aspartate Amino Transferase 36 U/L (14-36); Bilirubin,Total 0.4 mg/dL (0.2-1.3); Blood Urea Nitrogen 10 mg/dL (7-17); CRP 1.4 mg/dL (<1.0); Calcium 8.3 mg/dL (8.4-10.2); Carbon Dioxide 28 mmol/L (22-30); Chloride 103 mmol/L (98-107); Estimated CRCL calculation 90 ml/min; Estimated Glomerular Filt Rate > 60; Glucose 95 mg/dL (65-110); Lactate Dehydrogenase 157 U/L (120-246); Lipase 113 U/L (23-300); Magnesium 1.5 mg/dL (1.6-2.3); Phosphorus 3.8 mg/dL (2.5-4.5); Potassium 3.2 mmol/L (3.4-5.0); Sodium 139 mmol/L (137-145)
[2022-08-22 08:17] LABS: Glucose Point of Care 74 mg/dl (65-105)
[2022-08-22] MEDS: PANTOPRAZOLE 40 MG TABLET PO (08:23)
[2022-08-22] MEDS: FLUoxetine HCL 20 MG CAPSULE 60 MG PO (08:23)
[2022-08-22] MEDS: predniSONE 5 MG TABLET PO (08:23)
[2022-08-22] MEDS: POTASSIUM CHLORIDE 20 MEQ TABLET.ER PO (08:24)
--- NOTE | 2022-08-22 10:12 | PM.IMPN ---
Progress Note: A&P Assessment and Plan (1) Hypoglycemia: Code(s): E16.2 - Hypoglycemia, unspecified Status: Acute Assessment and Plan: -the patient has had multiple episodes of hypoglycemia. -the patient is not diabetic and nor is she taking any insulin or oral anti glycemic medications -Plaquenil has a severe reaction causing hypoglycemia -I am going to hold her Plaquenil for tonight -I started her on low-dose prednisone -the patient will need to follow-up with her rn observation for further recommendations. -p.r.n. hypoglycemic protocol (2) Anxiety: Code(s): F41.9 - Anxiety disorder, unspecified Status: Acute Assessment and Plan: -continue with amitriptyline -continue with Prozac (3) Systemic lupus erythematosus: Code(s): M32.9 - Systemic lupus erythematosus, unspecified Status: Acute Assessment and Plan: -low-dose prednisone for now -I am holding her Plaquenil -she will need to follow-up with her rn observation outpatient. (4) Gastroesophageal reflux disease: Code(s): K21.9 - Gastro-esophageal reflux disease without esophagitis Status: Acute Assessment and Plan: -continue omeprazole (5) Status post gastric bypass for obesity: Code(s): Z98.84 - Bariatric surgery status Status: Acute Assessment and Plan: -patient has had a poor appetite but uses protein supplement. -may need dietary consultation Subjective Date/time seen: 08/22/22 10:12 feeling better Exam Const: General: cooperative, healthy appearing, comfortable, no acute distress, well developed, awake and Physically active Nutritional Appearance: average body habitus and well nourished Orientation/consciousness: oriented to person, oriented to place, oriented to time and patient oriented x3 Limitations: no limitations HENMT: Head: normal to inspection, No palpable skull fracture present, normocephalic and atraumatic Ears: hearing grossly normal bilaterally and external ears normal General nose exam: Normal external nose present and Normal nares present Eyes: General: appearance normal, both eyes and all related structures Alignment and Position: alignment normal Periorbital: periorbital findings normal Eyelids: eyelids normal Pupils: Equal, round and reactive pupils present EOM: EOMs intact bilaterally Neck: Neck: normal visual inspection, full ROM, no lymphadenopathy, trachea midline and supple Chest: Chest palpation & inspection: normal inspection of the chest Resp: Effort & Inspection: normal respiratory effort Auscultation: clear to auscultation bilaterally Cardio: Palpation: normal PMI Rate: regular rate Rhythm: regular rhythm Heart sounds: S1 normal heart sound present and S2 normal heart sound present Peripheral pulses: Peripheral pulses 2+ throughout GI: Inspection: normal to inspection Auscultation: normal bowel sounds Rectal Exam: deferred Back/Spine/Pelvis: Cervical Spine: cervical ROM normal Skin: General skin exam: normal color Lesions: no lesions Rashes: no rashes Trauma: no lacerations or abrasions Wounds: no wounds Hair: normal Nails: normal Neuro: General: oriented to person, oriented to place, oriented to time and patient oriented x3 Cranial nerves: Yes Equal, round and reactive pupils present and Yes Normal hearing present Cognition (Neuro): normal cognition Speech: normal speech Gait exam (Neuro): Normal gait present Motor exam (neuro): 5/5 motor strength present throughout Sensory Exam: normal sensation Extrem: General: normal to inspection Right upper extremity: normal to inspection and shoulder/upper arm Left upper extremity: normal to inspection and shoulder/upper arm Right lower extremity: normal to inspection Left lower extremity: normal to inspection Psych: Appearance: grossly normal Mental Status: mental status grossly normal Speech and movement: Normal speech and movement present Affect: normal affect Attitud
[2022-08-22 10:24] LABS: Free T4 Free Thyroxine Reflex 0.75 ng/dL (0.78-2.19)
[2022-08-22 11:33] LABS: Glucose Point of Care 174 mg/dl (65-105)
[2022-08-22 17:25] LABS: Glucose Point of Care 112 mg/dl (65-105)
[2022-08-22 21:29] LABS: Glucose Point of Care 95 mg/dl (65-105)
[2022-08-23] MEDS: AMITRIPTYLINE HCL 10 MG TABLET PO (00:08)
[2022-08-23 00:26] LABS: Glucose Point of Care 81 mg/dl (65-105)
[2022-08-23 05:08] LABS: Glucose Point of Care 70 mg/dl (65-105)
[2022-08-23 05:47] VITALS: BP 128/86; PULSE 79; RESP 14; TEMP 36.1; O2SAT 95
[2022-08-23 08:00] VITALS: PULSE 79; RESP 14; O2SAT 95
[2022-08-23 08:25] LABS: Glucose Point of Care 71 mg/dl (65-105)
[2022-08-23 08:41] LABS: Hematocrit 38.3 % (37.0-47.0); Hemoglobin 12.5 g/dL (12.0-15.0); Mean Corpuscular HGB Conc 32.6 g/dl (32-36); Mean Corpuscular Hemoglobin 32.4 pg (26-34); Mean Corpuscular Volume 99.2 fl (80-100); Mean Platelet Volume 9.5 fl (7.4-10.4); Platelet Count Result 153 k/mm3 (150-375); Red Blood Count 3.86 M/mm3 (4.2-5.4); Red Cell Distribution Width 13.3 % (11.5-14.5); White Blood Count 10.2 K/mm3 (4.5-10.0)
[2022-08-23] MEDS: POTASSIUM CHLORIDE 20 MEQ TABLET.ER PO (09:44)
[2022-08-23] MEDS: predniSONE 5 MG TABLET PO (09:46)
[2022-08-23] MEDS: FLUoxetine HCL 20 MG CAPSULE 60 MG PO (09:46)
[2022-08-23] MEDS: PANTOPRAZOLE 40 MG TABLET PO (09:46)
[2022-08-23 11:39] LABS: Glucose Point of Care 112 mg/dl (65-105)
--- NOTE | 2022-08-23 14:45 | PM.DS ---
DS: Admitting Diagnosis Discharge Date 08/23/22 Admitting Diagnosis hypoglycemia DS: Discharge Diagnosis Discharge Diagnosis (1) Hypoglycemia: Code(s): E16.2 - Hypoglycemia, unspecified Status: Acute Assessment and Plan: -the patient has had multiple episodes of hypoglycemia. -the patient is not diabetic and nor is she taking any insulin or oral anti glycemic medications -Plaquenil has a severe reaction causing hypoglycemia -I am going to hold her Plaquenil for tonight -I started her on low-dose prednisone -the patient will need to follow-up with her dispute resolution analyst for further recommendations. -p.r.n. hypoglycemic protocol (2) Anxiety: Code(s): F41.9 - Anxiety disorder, unspecified Status: Acute Assessment and Plan: -continue with amitriptyline -continue with Prozac (3) Systemic lupus erythematosus: Code(s): M32.9 - Systemic lupus erythematosus, unspecified Status: Acute Assessment and Plan: -low-dose prednisone for now -I am holding her Plaquenil -she will need to follow-up with her dispute resolution analyst outpatient. (4) Gastroesophageal reflux disease: Code(s): K21.9 - Gastro-esophageal reflux disease without esophagitis Status: Acute Assessment and Plan: -continue omeprazole (5) Status post gastric bypass for obesity: Code(s): Z98.84 - Bariatric surgery status Status: Acute Assessment and Plan: -patient has had a poor appetite but uses protein supplement. -may need dietary consultation DS: Summary Hospital Course Hospital Course: admitted for hypoglycemia which is recurrent - with small frequent meals she has no issues, we did start her on low dose prednisone and glucose as needed and she is tolerating well. BS look good and she can be dc - fu endocrinology Time Spent with Patient Time attestation: Total time spent providing and/or coordinating discharge services: Exam Const: General: cooperative, healthy appearing, comfortable, no acute distress, well developed, awake and Physically active Nutritional Appearance: average body habitus and well nourished Orientation/consciousness: oriented to person, oriented to place, oriented to time and patient oriented x3 Limitations: no limitations HENMT: Head: normal to inspection, No palpable skull fracture present, normocephalic and atraumatic Ears: hearing grossly normal bilaterally and external ears normal General nose exam: Normal external nose present and Normal nares present Eyes: General: appearance normal, both eyes and all related structures Alignment and Position: alignment normal Periorbital: periorbital findings normal Eyelids: eyelids normal Pupils: Equal, round and reactive pupils present EOM: EOMs intact bilaterally Neck: Neck: normal visual inspection, full ROM, no lymphadenopathy, trachea midline and supple Chest: Chest palpation & inspection: normal inspection of the chest Resp: Effort & Inspection: normal respiratory effort Auscultation: clear to auscultation bilaterally Cardio: Palpation: normal PMI Rate: regular rate Rhythm: regular rhythm Heart sounds: S1 normal heart sound present and S2 normal heart sound present Peripheral pulses: Peripheral pulses 2+ throughout GI: Inspection: normal to inspection Auscultation: normal bowel sounds Rectal Exam: deferred Back/Spine/Pelvis: Cervical Spine: cervical ROM normal Skin: General skin exam: normal color Lesions: no lesions Rashes: no rashes Trauma: no lacerations or abrasions Wounds: no wounds Hair: normal Nails: normal Neuro: General: oriented to person, oriented to place, oriented to time and patient oriented x3 Cranial nerves: Yes Equal, round and reactive pupils present and Yes Normal hearing present Cognition (Neuro): normal cognition Speech: normal speech Gait exam (Neuro): Normal gait present Motor exam (neuro): 5/5 motor strength present throughout Sensory Exam: normal sensation Extrem: G
[2022-08-23 16:02] VITALS: BP 144/87; PULSE 100; RESP 16; TEMP 36.1; O2SAT 100
[2022-08-23 16:47] LABS: Glucose Point of Care 108 mg/dl (65-105)
== END 2022-08-23 16:56 | disposition home or self-care (01) ==
LOC: ANHED 13:37 → ANH3MEDSUR 13:51
PROVIDERS: Nurse Practitioner; Admitting Provider Internal Medicine; Emergency Provider Emergency Medicine; PCP Physician Assistant; Visit Provider Chiropractor
DX: E16.2 Hypoglycemia, unspecified (principal); F41.9 Anxiety disorder, unspecified; M32.9 Systemic lupus erythematosus, unspecified; K21.9 Gastro-esophageal reflux disease without esophagitis; Z98.84 Bariatric surgery status; R53.1 Weakness; Z20.822 Contact with and (suspected) exposure to COVID-19; Z98.890 Other specified postprocedural states; Z79.899 Other long term (current) drug therapy
CPT/HCPCS: 36415; 71046; 80048; 80053; 81001; 82533; 82948; 83605; 83615; 83690; 83735; 84100; 84439; 84443; 85025; 85027; 86140; 87086; 87088; 93005; 99285; A9270; C9803; G0378; G0379; J7512; U0003; U0005

== ENCOUNTER 2023-03-19 09:08 | Outpatient (CLI) | payer BC, OTHER, SELFPAY ==
--- NOTE | ~2023-03-19 | MR_ITS ---
MRI of the brain Clinical History: Loss of consciousness Technique: Axial and sagittal T1-weighted images were acquired. These were followed by axial T2-weigh shira, diffusion weighted, gradient, and FLAIR images. Thin cut coronal and sagittal T1-weighted images were performed through the sella turcica. Following intravenous administration of 20 cc MultiHance g adolinium, T1-weighted fat-sat imaging was performed through the brain in the axial and coronal plane s. Dynamic coronal T1 postcontrast imaging with additional sagittal postcontrast T1-weighted imaging was also performed through the sella turcica. Findings: No abnormal signal seen in the brain parenchyma. No acute infarct or intracranial hemorrhag e. Ventricles and subarachnoid spaces are unremarkable. Orbits are unremarkable. Paranasal sinuses and m astoid air cells are clear. Major intracranial flow voids appear intact. There is prominence of the sella turcica with a very thin, flattened pituitary gland along the inferi or margin, consistent with empty sella syndrome. No other evidence for sellar/suprasellar mass. No ab normal postcontrast enhancement identified. Sagittal midline structures otherwise are intact. IMPRESSION: Empty sella. No other significant findings. No abnormal mass lesion. Reviewed, dictated and finalized at location M.
== END 2023-03-19 09:09 | disposition home or self-care (01) ==
PROVIDERS: PCP Physician Assistant; Visit Provider Physician Assistant
DX: R55 Syncope and collapse (principal)
CPT/HCPCS: 70553; A9577

== ENCOUNTER 2023-05-05 12:32 | Emergency (ER) | payer BC, OTHER, SELFPAY ==
[2023-05-05] VITALS (22 sets, daily range): BP systolic 126–143; BP diastolic 91–101; PULSE 77–88; RESP 8–26; TEMP 36.3; O2SAT 94–100
[2023-05-05 12:44] LABS: Glucose Point of Care 59 mg/dl (65-105)
--- NOTE | 2023-05-05 12:56 | ED.GENADULT ---
HPI - General Adult General Chief complaint: Recheck/Abnormal Lab/Rx Stated complaint: nausea/vomiting/low BS/low potassium Time Seen by Provider: 05/05/23 12:49 History of Present Illness HPI narrative: 47-year-old female with history of hypoglycemia presented to the emergency department for evaluation of low blood sugar. Patient states that she has had history of low blood sugar has had follow-up with her primary care physician and also was recommended to have follow-up with an sales host. Patient states her follow-up with endocrinology is not scheduled until July. Patient reports he has had decreased p.o. intake over the last few days, patient states he has had nausea without vomiting. Patient denies any chest pain shortness of breath. Patient denies any abdominal pain or symptoms of dysuria. Related Data Home Medications Medication Instructions Recorded Confirmed hydroxychloroquine 200 mg tablet 400 mg PO DAILY 09/30/21 08/21/22 (Plaquenil) ergocalciferol (vitamin D2) 1,250 50,000 unit PO WEEKLY 08/02/22 08/02/22 mcg (50,000 unit) capsule fexofenadine 180 mg tablet 180 mg PO DAILY PRN Allergy 08/02/22 08/02/22 (Allergy Relief (fexofenadine)) Symptoms fluoxetine 60 mg tablet 60 mg PO DAILY 08/02/22 08/02/22 hydroxychloroquine 200 mg tablet 200 mg PO BID 08/02/22 08/02/22 omeprazole 20 mg capsule,delayed 20 mg PO DAILY 08/02/22 08/02/22 release rizatriptan 5 mg tablet 5 mg PO DAILY PRN Migraine Headache 08/02/22 08/02/22 amitriptyline 10 mg tablet 10 mg PO HS 08/18/22 08/21/22 potassium chloride 20 mEq 20 meq PO DAILY 08/18/22 08/21/22 tablet,extended release(part/cryst) blood-glucose meter (OneTouch 08/21/22 08/21/22 Verio Reflect Meter) fluoxetine 60 mg tablet 60 mg PO DAILY 08/21/22 08/21/22 omeprazole 20 mg capsule,delayed 20 mg PO DAILY 08/21/22 08/21/22 release Allergies Allergy/AdvReac Type Severity Reaction Status Date / Time koolaid Allergy Unknown Uncoded 05/05/23 12:33 Review of Systems Review of Systems: All systems reviewed & are unremarkable except as noted in HPI and below PMFSH Past Medical History Medical History (Updated 05/05/23 @ 15:59 by Suraj Hernández MD) Acute kidney injury Anxiety Depression Eczema Gastric outlet obstruction Gastrojejunal anastomotic stricture GERD (gastroesophageal reflux disease) GERD (gastroesophageal reflux disease) Hypokalemia Lupus Lupus (systemic lupus erythematosus) Mass on back Migraines Normal blood sugar Raynaud disease Systemic lupus erythematosus Surgical History Surgical History (Updated 01/05/23 @ 12:08 by Luis Graves) History of excision of lesion Solar lentigo from the left lateral canthus. History of gastric bypass (2010) x 2. History of gastric bypass History of laparoscopic cholecystectomy (2003) History of tonsillectomy History of ventral hernia repair (05/2016) Incarcerated ventral hernia repair with extensive adhesiolysis. 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 S/P cholecystectomy Family History Family History (System 01/05/23 @ 12:08 by Luis Graves) Mother Diabetes mellitus Cancer Hypertension Colon cancer Father Diabetes mellitus Hypertension FH: CABG (coronary artery bypass surgery) Sibling Hypothyroid Hypertension Mother Brain cancer Colon cancer Diabetes mellitus Hypertension Father Diabetes mellitus Hypertension H/O heart surgery Social History Social History (System 01/05/23 @ 12:08 by Luis Graves) Social History: The patient is and lives in [place] with her 2 children. 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 She designates her father, Maikel Adair, as her surrogate decision maker and she wishes to be a full code. Code status full code Smoking status: Never smoker Alcohol intake: never Substance use
--- NOTE | 2023-05-05 13:45 | ECG_ITS ---
Measurements Intervals [place] Rate: 74 P: 33 MA: 134 QRS: 7 QRSD: 85 T: 11 QT: 392 QTc: 436 Interpretive Statements SINUS RHYTHM COMPARED TO ECG 08/21/2022 08:10:07 NO SIGNIFICANT CHANGES Electronically Signed On 05-06-2023 10:39:36 CDT by Shannon Carney M.D.
[2023-05-05 13:54] LABS: Glucose Point of Care 61 mg/dl (65-105)
[2023-05-05 14:09] LABS: Basophils Absolute Auto 0.1 K/mm3 (0.0-0.1); Basophils Percent Auto 0.5 % (0.2-1.2); Eosinophils Absolute Auto 0.1 K/mm3 (0-0.3); Eosinophils Percent Auto 1.1 % (0-4.4); Hematocrit 46.1 % (37.0-47.0); Hemoglobin 15.4 g/dL (12.0-15.0); Immature Granulocyte Absolute 0.02 K/mm3 (0.00-0.031); Immature Granulocyte Percent A 0.2 % (0-0.5); Lymphocytes Absolute Auto 3.01 K/mm3 (0.9-3.2); Lymphocytes Percent Auto 32.6 % (18.3-44.2); Mean Corpuscular HGB Conc 33.4 g/dl (32-36); Mean Corpuscular Volume 92.9 fl (80-100); Mean Platelet Volume 9.4 fl (7.4-10.4); Monocytes Absolute Auto 0.4 K/mm3 (0.1-0.6); Neutrophils Absolute Auto 5.7 K/mm3 (1.3-6.7); Neutrophils Percent Auto 61.6 % (45.5-73.1); Platelet Count Result 238 k/mm3 (150-375); Red Blood Count 4.96 M/mm3 (4.2-5.4); Red Cell Distribution Width 11.9 % (11.5-14.5); White Blood Count 9.2 K/mm3 (4.5-10.0)
[2023-05-05 14:21] LABS: Alanine Aminotransferase 30 U/L (6-35); Albumin Level 4.4 g/dL (3.5-5.1); Alkaline Phosphatase 85 U/L (38-126); Anion Gap 6 mmol/L (8-16); Aspartate Amino Transferase 32 U/L (14-36); Blood Urea Nitrogen 15 mg/dL (7-17); Carbon Dioxide 34 mmol/L (22-30); Chloride 99 mmol/L (98-107); Estimated CRCL calculation 97 ml/min; Estimated Glomerular Filt Rate > 60; Glucose 95 mg/dL (65-110); Sodium 139 mmol/L (137-145)
[2023-05-05 14:25] LABS: Magnesium 1.6 mg/dL (1.6-2.3)
[2023-05-05 15:54] LABS: Glucose Point of Care 84 mg/dl (65-105)
== END 2023-05-05 16:09 | disposition home or self-care (01) ==
PROVIDERS: Emergency Provider Emergency Medicine; PCP Physician Assistant
DX: E16.2 Hypoglycemia, unspecified (principal); M32.9 Systemic lupus erythematosus, unspecified; I73.00 Raynaud's syndrome without gangrene; F41.9 Anxiety disorder, unspecified; F32.A Depression, unspecified; Z98.84 Bariatric surgery status; Z90.49 Acquired absence of other specified parts of digestive tract
CPT/HCPCS: 36415; 80053; 82948; 83735; 85025; 93005; 99283

== ENCOUNTER 2023-10-01 15:07 | Outpatient (CLI) | payer BC, OTHER, SELFPAY ==
--- NOTE | 2023-10-01 | ECG_ITS ---
Measurements Intervals [place] Rate: 81 P: 43 WY: 139 QRS: 3 QRSD: 86 T: 4 QT: 387 QTc: 449 Interpretive Statements SINUS RHYTHM LOW QRS VOLTAGE IN PRECORDIAL LEADS BASELINE ARTIFACT- I, II, III, AVR, AVL, AVF BORDERLINE ECG COMPARED TO ECG 05/05/2023 13:59:36 NO SIGNIFICANT CHANGES Electronically Signed On 10-01-2023 15:44:20 CDT by Alan Chavez D.O.
== END 2023-10-01 15:08 | disposition home or self-care (01) ==
PROVIDERS: PCP Physician Assistant; Visit Provider Physician Assistant
DX: E66.01 Morbid (severe) obesity due to excess calories (principal)
CPT/HCPCS: 93005

== ENCOUNTER 2023-11-10 12:44 | Outpatient (CLI) | payer BC, OTHER, SELFPAY ==
--- NOTE | ~2023-11-10 | US_ITS ---
Pelvic ultrasound. Clinical History: Abnormal bleeding Technique: Realtime transabdominal and transvaginal scanning of the pelvis was performed. Color flow Doppler and Doppler spectral analysis were performed. Findings: The uterus is anteverted. The endometrial stripe has a thickness of 20 mm, and heterogeneo us. There is an intramural, possibly partially submucosal, fibroid, measuring 2.[address] ter. Neither ovary seen. No other adnexal mass seen. There is small amount of free fluid in the cul de sac. Impression: 2.1 cm uterine fibroid. Thickened, heterogeneous endometrial stripe, nonspecific. This is possibly related to stage in the me nstrual cycle. Correlate clinically. Reviewed, dictated and finalized at [facility]. DREN'S CHOIR DIRECTOR Impression: 2.1 cm uterine fibroid. Thickened, heterogeneous endometrial stripe, nonspecific. This is possibly rela shira to stage in the menstrual cycle. Correlate clinically.
== END 2023-11-10 12:45 | disposition home or self-care (01) ==
PROVIDERS: PCP Physician Assistant; Visit Provider Physician Assistant
DX: D25.1 Intramural leiomyoma of uterus (principal); N93.9 Abnormal uterine and vaginal bleeding, unspecified
CPT/HCPCS: 76830

== ENCOUNTER 2023-12-24 06:41 | Emergency (ER) | payer BC, OTHER, SELFPAY ==
[2023-12-24] VITALS (8 sets, daily range): BP systolic 100–128; BP diastolic 76–88; PULSE 90–100; RESP 14–22; TEMP 36.4–36.6; O2SAT 99–100
--- NOTE | 2023-12-24 06:46 | ECG_ITS ---
Measurements Intervals [place] Rate: 93 P: 42 HI: 128 QRS: 4 QRSD: 98 T: 12 QT: 391 QTc: 487 Interpretive Statements SINUS RHYTHM OLTAGE CRITERIA FOR LVH BORDERLINE ST-T WAVE ABNORMALITY- ANT/INF LEADS BORDERLINE ECG COMPARED TO ECG 10/01/2023 15:38:34 NO SIGNIFICANT CHANGES Electronically Signed On 12-24-2023 11:56:12 STORE WAREHOUSE ASSOCIATE by Alan Chavez D.O.
[2023-12-24 06:59] LABS: Basophils Percent Auto 0.4 % (0.2-1.2); Eosinophils Percent Auto 0.8 % (0-4.4); Hematocrit 35.7 % (37.0-47.0); Hemoglobin 11.9 g/dL (12.0-15.0); Immature Granulocyte Absolute 0.02 K/mm3 (0.00-0.031); Immature Granulocyte Percent A 0.4 % (0-0.5); Lymphocytes Absolute Auto 2.55 K/mm3 (0.9-3.2); Lymphocytes Percent Auto 49.7 % (18.3-44.2); Mean Corpuscular HGB Conc 33.3 g/dl (32-36); Mean Corpuscular Hemoglobin 32.2 pg (26-34); Mean Corpuscular Volume 96.5 fl (80-100); Mean Platelet Volume 8.6 fl (7.4-10.4); Monocytes Absolute Auto 0.2 K/mm3 (0.1-0.6); Monocytes Percent Auto 3.5 % (2.6-8.5); Neutrophils Absolute Auto 2.3 K/mm3 (1.3-6.7); Neutrophils Percent Auto 45.2 % (45.5-73.1); Platelet Count Result 178 k/mm3 (150-375); Red Cell Distribution Width 12.6 % (11.5-14.5); White Blood Count 5.1 K/mm3 (4.5-10.0)
[2023-12-24 07:31] LABS: Beta HCG Quantitative < 2.39 mIU/ML
[2023-12-24 07:39] LABS: Glucose Point of Care 130 mg/dl (65-105)
[2023-12-24] MEDS: SODIUM CHLORIDE 0.9% IV 1,000 ML 999 ML IV CONT (07:47)
[2023-12-24 08:01] LABS: Alanine Aminotransferase 115 U/L (6-35); Albumin Level 3.8 g/dL (3.5-5.1); Alkaline Phosphatase 111 U/L (38-126); Anion Gap 12 mmol/L (8-16); Aspartate Amino Transferase 163 U/L (14-36); Bilirubin,Total 0.8 mg/dL (0.2-1.3); Blood Urea Nitrogen 10 mg/dL (7-17); Calcium 8.3 mg/dL (8.4-10.2); Carbon Dioxide 23 mmol/L (22-30); Chloride 102 mmol/L (98-107); Estimated CRCL calculation 87 ml/min; Estimated Glomerular Filt Rate > 60; Glucose 228 mg/dL (65-110); Potassium 3.7 mmol/L (3.4-5.0); Sodium 137 mmol/L (137-145)
[2023-12-24] MEDS: MECLIZINE HCL 25 MG TABLET PO (08:03)
--- NOTE | 2023-12-24 08:04 | ED.GENADULT ---
HPI - General Adult General Chief complaint: Vaginal Bleeding Stated complaint: weak, dizzy, abnormal VS Time Seen by Provider: 12/24/23 07:02 History of Present Illness HPI narrative: Patient is a 48-year-old female who presents to the ER with complaint of feeling dizzy and weak. Sudden onset at 5:00 a.m. while she was watching TV. She reports it is the same feeling she gets when her blood sugar drops. She gave herself intranasal glucagon without improvement. She has been feeling diaphoretic and weak since then. Denies spinning dizziness. Reports she feels like she is going to pass out. No racing heart. Denies fevers or chills. No recent runny nose or sore throat or cough. No body aches. No focal weakness or numbness to any arm or leg. No slurred speech. Patient does report that she has been having heavy period over the last several months. She had been on phentermine to decrease her bleeding which improved but then when she ran out her bleeding increased. She is currently bleeding through 6 pads today. Related Data Home Medications Medication Instructions Recorded Confirmed rizatriptan 5 mg tablet 5 mg PO DAILY PRN Migraine Headache 08/02/22 12/01/23 blood-glucose meter (OneTouch 08/21/22 12/01/23 Verio Reflect Meter) Allergies Allergy/AdvReac Type Severity Reaction Status Date / Time koolaid Allergy Unknown Uncoded 12/01/23 11:16 Review of Systems Review of Systems: All systems reviewed & are unremarkable except as noted in HPI and below Constitutional: Constitutional: Denies chills, Reports fatigue, Denies fever(s) and Reports weakness ENT: Reports system reviewed and no additional complaints, except as documented Cardiovascular: Cardiovascular: Reports no additional cardiovascular complaints Respiratory: Respiratory: Reports no additional respiratory complaints Gastrointestinal: Gastrointestinal: Reports no additional gastrointestinal complaints Genitourinary: Genitourinary: Reports abnormal vaginal bleeding, Denies nocturia, Denies dysuria, Denies pelvic pain and Denies flank pain Integumentary/Breasts: Skin/Breast: Reports system reviewed and no additional complaints, except as docu Neurologic: Reports dizziness, Denies syncope, Denies headache(s), Denies focal weakness and Denies numbness [facility] Past Medical History Medical History Acute kidney injury Anxiety Depression Eczema Gastric outlet obstruction Gastrojejunal anastomotic stricture GERD (gastroesophageal reflux disease) GERD (gastroesophageal reflux disease) Hypokalemia Lupus Lupus (systemic lupus erythematosus) Mass on back Migraines Normal blood sugar Raynaud disease Systemic lupus erythematosus Surgical History Surgical History History of excision of lesion Solar lentigo from the left lateral canthus. History of gastric bypass (2010) x 2. History of gastric bypass History of laparoscopic cholecystectomy (2003) History of tonsillectomy History of ventral hernia repair (05/2016) Incarcerated ventral hernia repair with extensive adhesiolysis. 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 S/P cholecystectomy Family History Family History Mother Diabetes mellitus Cancer Hypertension Colon cancer Father Diabetes mellitus Hypertension FH: CABG (coronary artery bypass surgery) Sibling Hypothyroid Hypertension Mother Brain cancer Colon cancer Diabetes mellitus Hypertension Father Diabetes mellitus Hypertension H/O heart surgery Social History Social History Social History: The patient is and lives in [place] with her 2 children. 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 She denies alcohol, to
[2023-12-24 08:29] LABS: Influenza A QL RT-PCR Negative (Negative); Influenza B QL RT-PCR Negative (Negative); RSV RNA, RT-PCR Negative (Negative); SARS-CoV-2 RNA PCR Negative (Negative)
[2023-12-24 09:07] LABS: Appearance Urine Cloudy (Clear); Bacteria Urine 1+ /hpf; Bilirubin Urine Negative (Negative); Blood Urine 3+ (Negative); Color Urine Yellow (Yellow); Glucose Urine UA 1+ mg/dL (Negative); Ketones Urine 2+ mg/dL (Negative); Leukocyte Esterase Ur Trace LEU/UL (Negative); Nitrate Urine Negative (Negative); Protein Urine 1+ mg/dL (Negative); RBC Urine 51-100 /hpf (0-2); Specific Grav Ur 1.018 (1.001-1.035); Squamous Epithelial Cell Urine Many /hpf (Few); pH Urine 5.5 (5.0-9.0)
[2023-12-24 09:23] LABS: Add Urine Microscopic? YES
== END 2023-12-24 09:42 | disposition home or self-care (01) ==
PROVIDERS: Emergency Medicine; Emergency Provider Emergency Medicine; PCP Physician Assistant
DX: R42 Dizziness and giddiness (principal); M32.9 Systemic lupus erythematosus, unspecified; I73.00 Raynaud's syndrome without gangrene; K21.9 Gastro-esophageal reflux disease without esophagitis; Z98.84 Bariatric surgery status; Z90.49 Acquired absence of other specified parts of digestive tract
CPT/HCPCS: 36415; 80053; 81001; 81025; 82948; 84702; 85025; 86850; 86900; 86901; 87086; 87637; 93005; 96360; 99284; A9270; J7030

== ENCOUNTER 2024-01-11 07:47 | Emergency (ER) | payer BC, OTHER, SELFPAY ==
[2024-01-11] VITALS (14 sets, daily range): BP systolic 127–154; BP diastolic 83–99; PULSE 71–88; RESP 15–23; TEMP 36.4; O2SAT 78–100
--- NOTE | ~2024-01-11 | XR_ITS ---
XR chest 1V portable DATE: 01/11/2024 09:11 INDICATION: Midline chest pain. Shortness of breath. TECHNIQUE: Portable upright AP chest on January 11, 2024 at 0831 hours COMPARISON: 08/21/2022 PA and lateral chest FINDINGS: Chronic prominent elevation right diaphragm. Minimal infiltrate or atelectasis in the lower lung zones. The lungs otherwise appear clear. Normal heart size. No hilar or mediastinal enlargement. No pleural effusion or pulmonary vascular con gestion or pneumothorax. Included skeletal structures are unremarkable. IMPRESSION: Chronic elevation right diaphragm Minimal infiltrate or atelectasis in the lower lung zones Reviewed, dictated and finalized at location L. GRAPH LINEMAN
--- NOTE | 2024-01-11 07:59 | ECG_ITS ---
Measurements Intervals [place] Rate: 73 P: 32 MD: 146 QRS: 3 QRSD: 97 T: 12 QT: 418 QTc: 463 Interpretive Statements SINUS RHYTHM COMPARED TO ECG 12/24/2023 06:44:34 NO SIGNIFICANT CHANGES Electronically Signed On 01-11-2024 15:13:38 FOOD PROCESSOR by Shannon Carney M.D.
--- NOTE | 2024-01-11 08:01 | ED.CHESTPAIN ---
HPI - Chest Pain General Chief Complaint: Chest Pain Stated Complaint: dizzy, SOB, abd pain, chest pain Time Seen by Provider: 01/11/24 08:02 History of Present Illness HPI narrative: Patient is a 48-year-old female who presents to the emergency department this morning with multiple complaints. Patient states that she has been feeling generally unwell. Patient states that she has been having general body aches, weakness, lightheadedness, chest tightness and shortness of breath for the past week. She denies any sick contacts at home or denies any exposure to COVID or influenza started she is aware. Patient admits to mild nausea and diarrhea, denies any abdominal pain, dysuria, hematuria, constipation, melena, hematochezia, fevers or chills. She also denies any headaches, will spinning dizziness, focal weakness, numbness and tingling, or changes in vision. There is no other modifying, alleviating, or precipitating factors at this time. Related Data Home Medications Medication Instructions Recorded Confirmed rizatriptan 5 mg tablet 5 mg PO DAILY PRN Migraine Headache 08/02/22 12/01/23 blood-glucose meter (OneTouch 08/21/22 12/01/23 Verio Reflect Meter) Allergies Allergy/AdvReac Type Severity Reaction Status Date / Time koolaid Allergy Unknown Uncoded 01/11/24 08:03 Review of Systems Review of Systems: All systems are reviewed and are negative unless stated otherwise in the HPI. [facility] Past Medical History Medical History Acute kidney injury Anxiety Depression Eczema Gastric outlet obstruction Gastrojejunal anastomotic stricture GERD (gastroesophageal reflux disease) GERD (gastroesophageal reflux disease) Hypokalemia Lupus Lupus (systemic lupus erythematosus) Mass on back Migraines Normal blood sugar Raynaud disease Systemic lupus erythematosus Surgical History Surgical History History of excision of lesion Solar lentigo from the left lateral canthus. History of gastric bypass (2010) x 2. History of gastric bypass History of laparoscopic cholecystectomy (2003) History of tonsillectomy History of ventral hernia repair (05/2016) Incarcerated ventral hernia repair with extensive adhesiolysis. 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 S/P cholecystectomy Family History Family History Mother Diabetes mellitus Cancer Hypertension Colon cancer Father Diabetes mellitus Hypertension FH: CABG (coronary artery bypass surgery) Sibling Hypothyroid Hypertension Mother Brain cancer Colon cancer Diabetes mellitus Hypertension Father Diabetes mellitus Hypertension H/O heart surgery Social History Social History Social History: The patient is and lives in [place] with her 2 children. 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 She designates her father, Maikel Adair, as her surrogate decision maker and she wishes to be a full code. Code status full code Smoking status: Never smoker Alcohol intake: never Substance use: never Substance use type: does not use Do You Feel Safe in your Home?: Yes Lack of Transportation: No Lack of Food: Never True Current Housing: I Have Housing Concerned About Future Housing: No Difficulty Paying Gas/Electric Bills: Decline to Answer Difficulty Paying for Meds: No Currently Unemployed: No Education: Associate Degree Difficulty w/ Childcare or Family Care: No Living arrangements: with family Spiritual care concerns: No Exam Narrative: General: Alert, awake, afebrile, in no acute distress. HEENT: PERRL, no rhinorrhea, no post nasal drip, oropharynx clear. Neck: Trachea
[2024-01-11] MEDS: ASPIRIN 81 MG CHEWABLE TABLET 324 MG PO (08:13)
[2024-01-11 08:30] LABS: Basophils Absolute Auto 0.1 K/mm3 (0.0-0.1); Eosinophils Percent Auto 0.8 % (0-4.4); Hematocrit 39.7 % (37.0-47.0); Hemoglobin 13.2 g/dL (12.0-15.0); Immature Granulocyte Absolute 0.02 K/mm3 (0.00-0.031); Immature Granulocyte Percent A 0.4 % (0-0.5); Immature Platelet Fraction Pct 2.9 % (0.9-11.2); Lymphocytes Absolute Auto 3.48 K/mm3 (0.9-3.2); Mean Corpuscular HGB Conc 33.2 g/dl (32-36); Mean Corpuscular Hemoglobin 32.6 pg (26-34); Mean Platelet Volume 8.9 fl (7.4-10.4); Monocytes Absolute Auto 0.2 K/mm3 (0.1-0.6); Monocytes Percent Auto 4.4 % (2.6-8.5); Neutrophils Absolute Auto 1.2 K/mm3 (1.3-6.7); Neutrophils Percent Auto 23.4 % (45.5-73.1); Nucleated Red Blood Cells Perc 0.4 % (0.0-0.2); Platelet Count Result 139 k/mm3 (150-375); Red Blood Count 4.05 M/mm3 (4.2-5.4); Red Cell Distribution Width 13.5 % (11.5-14.5)
[2024-01-11 08:36] LABS: Alanine Aminotransferase 135 U/L (6-35); Albumin Level 4.1 g/dL (3.5-5.1); Alkaline Phosphatase 101 U/L (38-126); Anion Gap 9 mmol/L (8-16); Aspartate Amino Transferase 213 U/L (14-36); Bilirubin,Total 0.8 mg/dL (0.2-1.3); Blood Urea Nitrogen 11 mg/dL (7-17); Carbon Dioxide 27 mmol/L (22-30); Chloride 104 mmol/L (98-107); Estimated CRCL calculation 97 ml/min; Estimated Glomerular Filt Rate > 60; Glucose 110 mg/dL (65-110); Lipase 232 U/L (23-300); Potassium 3.5 mmol/L (3.4-5.0); Sodium 140 mmol/L (137-145)
[2024-01-11 08:38] LABS: Partial Thromboplastin Time 27.1 SECONDS (22.3-36.8); Prothrombin Time 13.6 Seconds (11.1-14.7)
[2024-01-11 08:47] LABS: Troponin I < 0.012 ng/mL (0.000-0.034)
[2024-01-11 08:57] LABS: Influenza A QL RT-PCR Negative (Negative); Influenza B QL RT-PCR Negative (Negative); SARS-CoV-2 RNA PCR Negative (Negative)
[2024-01-11] MEDS: SODIUM CHLORIDE 0.9% IV 1,000 ML 999 ML IV CONT (09:04)
[2024-01-11 10:08] LABS: Appearance Urine Clear (Clear); Bacteria Urine None Seen /hpf; Bilirubin Urine Negative (Negative); Blood Urine 2+ (Negative); Color Urine Yellow (Yellow); Glucose Urine UA Negative (Negative); Ketones Urine Negative (Negative); Leukocyte Esterase Ur Negative LEU/UL (Negative); Nitrate Urine Negative (Negative); Non Pathogenic Casts 0-2; Protein Urine Negative (Negative); RBC Urine 21-50 /hpf (0-2); Specific Grav Ur 1.016 (1.001-1.035); Squamous Epithelial Cell Urine Few /hpf (Few); WBC Urine 0-5 /hpf
[2024-01-11 10:23] LABS: Add Urine Microscopic? YES
--- NOTE | 2024-01-11 10:24 | ECG_ITS ---
Measurements Intervals [place] Rate: 75 P: 41 SD: 152 QRS: 5 QRSD: 92 T: 14 QT: 418 QTc: 468 Interpretive Statements SINUS RHYTHM LOW QRS VOLTAGE IN PRECORDIAL LEADS [QRS DEFLECTION < 1.0 mV IN CHEST LEADS] COMPARED TO ECG 01/11/2024 08:08:18 NO SIGNIFICANT CHANGES Electronically Signed On 01-11-2024 15:18:03 MOLDING MACHINE TENDER by Shannon Carney M.D.
[2024-01-11 11:09] LABS: Troponin I < 0.012 ng/mL (0.000-0.034)
== END 2024-01-11 13:17 | disposition home or self-care (01) ==
PROVIDERS: Emergency Provider Emergency Medicine; PCP Physician Assistant
DX: J18.9 Pneumonia, unspecified organism (principal); R06.02 Shortness of breath; Z20.822 Contact with and (suspected) exposure to COVID-19; F41.9 Anxiety disorder, unspecified; F32.A Depression, unspecified; K21.9 Gastro-esophageal reflux disease without esophagitis; M32.9 Systemic lupus erythematosus, unspecified
CPT/HCPCS: 36415; 71045; 80053; 81001; 83690; 84484; 85025; 85055; 85610; 85730; 87636; 93005; 96360; 99284; A9270; J7030

== ENCOUNTER 2024-01-24 14:23 | Emergency (ER) | payer BC, OTHER, SELFPAY ==
[2024-01-24 14:25] VITALS: BP 147/88; PULSE 99; RESP 14; TEMP 36.8; O2SAT 96
--- NOTE | 2024-01-24 14:26 | ED.CHESTPAIN ---
HPI - Chest Pain General Chief Complaint: Chest Pain Stated Complaint: chest pain Time Seen by Provider: 01/24/24 14:26 Focused HPI: Patient is a 48 y/o female who presents to the ED with c/o CP and hypoglycemia. Patient states CP began 1 hour ago. States pain is present across her anterior chest. Radiates through to back. Pain worse with exertion and moving around, no alleviating factors. Never had pain like before. Pain slightly improved currently. Reported SOB associated with the CP, tightness in lower extremities, N/V this morning prior to the onset of CP. Reports mild persistent cough with Hx of PNA last month. Denies fevers. Patient notes hx of hypoglycemia, no hx of DM. Sees an professor of chemical engineering and wears a [employer] blood glucose monitor. States she has hypoglycemic episodes several times per day, but doesn't tell anyone about them. She began feeling lightheaded just prior to walking into the ED and checked her BG to be 18. She did take an glucose chewable tab just prior to walking in. Patient also mentions she was recently diagnosed with ovarian cancer. GENERAL: Unwell-appearing, well-nourished, and in no acute distress. HEAD: Normocephalic, atraumatic. CHEST: Clear to auscultation. ?No respiratory distress. HEART: Regular rate and rhythm.? NEURO: ?Alert and oriented x3. Speech slightly slurred. No focal deficits. PSYCHIATRIC: Anxious. Patient screened in triage and initial orders placed.? ?Additional care and disposition to be based upon?diagnostic testing and treatment. Source: patient Mode of arrival: ambulatory Limitations: no limitations Related Data Home Medications Medication Instructions Recorded Confirmed rizatriptan 5 mg tablet 5 mg PO DAILY PRN Migraine Headache 08/02/22 12/01/23 blood-glucose meter (OneTouch 08/21/22 12/01/23 Verio Reflect Meter) Allergies Allergy/AdvReac Type Severity Reaction Status Date / Time koolaid Allergy Unknown Uncoded 01/11/24 08:03 [facility] Past Medical History Medical History Acute kidney injury Anxiety Depression Eczema Gastric outlet obstruction Gastrojejunal anastomotic stricture GERD (gastroesophageal reflux disease) GERD (gastroesophageal reflux disease) Hypokalemia Lupus Lupus (systemic lupus erythematosus) Mass on back Migraines Normal blood sugar Raynaud disease Systemic lupus erythematosus Surgical History Surgical History History of excision of lesion Solar lentigo from the left lateral canthus. History of gastric bypass (2010) x 2. History of gastric bypass History of laparoscopic cholecystectomy (2003) History of tonsillectomy History of ventral hernia repair (05/2016) Incarcerated ventral hernia repair with extensive adhesiolysis. 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 S/P cholecystectomy Family History Family History Mother Diabetes mellitus Cancer Hypertension Colon cancer Father Diabetes mellitus Hypertension FH: CABG (coronary artery bypass surgery) Sibling Hypothyroid Hypertension Mother Brain cancer Colon cancer Diabetes mellitus Hypertension Father Diabetes mellitus Hypertension H/O heart surgery Social History Social History Social History: The patient is and lives in [place] with her 2 children. 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 She designates her father, Maikel Adair, as her surrogate decision maker and she wishes to be a full code. Code status full code Smoking status: Never smoker Alcohol intake: never Substance use: never Substance use type: does not use Do You Feel Safe in your Home?: Yes Lack of Transportation: No Lack of Fo
--- NOTE | 2024-01-24 14:33 | ECG_ITS ---
Measurements Intervals [place] Rate: 94 P: 36 VT: 161 QRS: -1 QRSD: 96 T: 11 QT: 377 QTc: 471 Interpretive Statements SINUS RHYTHM LOW QRS VOLTAGE IN PRECORDIAL LEADS [QRS DEFLECTION < 1.0 mV IN CHEST LEADS] POOR R-WAVE PROGRESSION ABNORMAL ECG COMPARED TO ECG 01/11/2024 10:29:36 NO SIGNIFICANT CHANGES Electronically Signed On 01-24-2024 18:37:43 PRE ASSEMBLY WIRER by Dileep Walters M.D.
[2024-01-24 14:50] LABS: Glucose Point of Care 136 mg/dl (65-105)
[2024-01-24 14:56] LABS: Basophils Absolute Auto 0.1 K/mm3 (0.0-0.1); Basophils Percent Auto 1.4 % (0.2-1.2); Eosinophils Percent Auto 0.5 % (0-4.4); Hematocrit 40.7 % (37.0-47.0); Hemoglobin 13.6 g/dL (12.0-15.0); Immature Granulocyte Absolute 0.03 K/mm3 (0.00-0.031); Immature Granulocyte Percent A 0.5 % (0-0.5); Lymphocytes Absolute Auto 3.42 K/mm3 (0.9-3.2); Lymphocytes Percent Auto 58.4 % (18.3-44.2); Mean Corpuscular HGB Conc 33.4 g/dl (32-36); Mean Corpuscular Hemoglobin 32.7 pg (26-34); Mean Corpuscular Volume 97.8 fl (80-100); Monocytes Absolute Auto 0.4 K/mm3 (0.1-0.6); Monocytes Percent Auto 6.5 % (2.6-8.5); Neutrophils Absolute Auto 1.9 K/mm3 (1.3-6.7); Neutrophils Percent Auto 32.7 % (45.5-73.1); Platelet Count Result 270 k/mm3 (150-375); Red Blood Count 4.16 M/mm3 (4.2-5.4); Red Cell Distribution Width 13.3 % (11.5-14.5); White Blood Count 5.9 K/mm3 (4.5-10.0)
[2024-01-24 15:09] LABS: INR 1.1; Partial Thromboplastin Time 26.7 SECONDS (22.3-36.8); Prothrombin Time 14.8 Seconds (11.1-14.7)
[2024-01-24 15:24] LABS: D Dimer 0.62 ug/mL (<0.48)
--- NOTE | 2024-01-24 15:58 | PC.NURSE ---
pt seen ambulating out of the dept with family member
== END 2024-01-24 16:12 | disposition left against medical advice (07) ==
PROVIDERS: Emergency Provider Physician Assistant; PCP Physician Assistant
DX: R07.9 Chest pain, unspecified (principal); E16.2 Hypoglycemia, unspecified; R79.1 Abnormal coagulation profile; K21.9 Gastro-esophageal reflux disease without esophagitis; M32.9 Systemic lupus erythematosus, unspecified; I73.00 Raynaud's syndrome without gangrene; Z98.84 Bariatric surgery status; Z90.49 Acquired absence of other specified parts of digestive tract
CPT/HCPCS: 36415; 82948; 85025; 85380; 85610; 85730; 93005; 99284

== ENCOUNTER 2024-01-27 16:53 | Emergency (ER) | payer BC, OTHER, SELFPAY ==
[2024-01-27] VITALS (12 sets, daily range): BP systolic 108–148; BP diastolic 89–99; PULSE 74–102; RESP 13–20; TEMP 36.4; O2SAT 94–100
--- NOTE | ~2024-01-27 | CT_ITS ---
EXAMINATION: CTA chest PE abdomen pel DATE: 01/27/2024 19:57 INDICATION: Shortness of breath, abdominal pain TECHNIQUE: Computed tomography angiography (CTA) of the chest was performed with 100 mL Omnipaque-350 intravenous contrast timed to evaluate the pulmonary arteries. Subsequent postcontrast images of the abdomen and pelvis are obtained. Coronal maximum intensity projection 3D-reconstructions were create d by the technologist. The dose-length product (DLP) was 2013.37 mGy-cm. Automated exposure control a nd iterative reconstruction technique were employed. COMPARISON: 08/18/2022 FINDINGS: CTA CHEST: The pulmonary arteries are well-opacified. No pulmonary embolism is identified. There is m ild atelectasis of the lungs. The lungs are free of focal airspace opacities. No pleural effusion or pneumothorax. No pathologically enlarged thoracic lymph nodes are identified. The heart size is sean l. ABDOMEN/PELVIS CT: Changes of cholecystectomy are noted. The liver is diffusely low in attenuation wh en compared with the spleen, consistent with hepatic steatosis. The spleen, pancreas, and adrenal gla nds are normal. The left kidney is unremarkable. There is a 5 mm cyst of the right kidney. No patholo gically enlarged abdominal or pelvic lymph nodes are identified. There is a supraumbilical hernia con taining a short segment of nonobstructed small bowel. Additional tiny midline ventral hernias contain ing fat are noted. IMPRESSION: 1. No pulmonary embolus identified. 2. Small supraumbilical hernia containing a short segment of nonobstructed small bowel. Reviewed, dictated and finalized at location F. E EDGER IMPRESSION: 1. No pulmonary embolus identified. 2. Small supraumbilical hernia containing a short segment of nonobstructed smal l bowel.
--- NOTE | ~2024-01-27 | XR_ITS ---
EXAMINATION: XR chest 2V DATE: 01/27/2024 17:59 INDICATION: Shortness of breath TECHNIQUE: Frontal and lateral views of the chest are obtained COMPARISON: 01/11/2024 FINDINGS: The lungs are free of acute opacities. There is chronic elevation of the right hemidiaphrag m. No pleural effusion or pneumothorax. The cardiomediastinal silhouette is normal. The visualized abhi amelie and soft tissues are unremarkable. Surgical clips in the right upper quadrant are likely from gaby or cholecystectomy. IMPRESSION: 1. Chronic elevation of the right hemidiaphragm without acute cardiopulmonary abnormality. Reviewed, dictated and finalized at location F. UNITY CASE MANAGER IMPRESSION: 1. Chronic elevation of the right hemidiaphragm without acute cardiopulmonary a bnormality.
--- NOTE | 2024-01-27 17:12 | ECG_ITS ---
Measurements Intervals [place] Rate: 94 P: 30 CO: 160 QRS: -3 QRSD: 96 T: 14 QT: 365 QTc: 457 Interpretive Statements SINUS RHYTHM VOLTAGE CRITERIA FOR LVH LOW VOLTAGE IN PRECORDIAL LEADS BORDERLINE R WAVE PROGRESSION, ANTERIOR LEADS BORDERLINE T WAVE ABNORMALITY- INFERIOR LEADS BORDERLINE ECG COMPARED TO ECG 01/24/2024 14:35:07 NO SIGNIFICANT CHANGES Electronically Signed On 01-28-2024 6:30:03 COOLER WORKER by Alan Chavez D.O.
[2024-01-27 17:24] LABS: Basophils Absolute Auto 0.1 K/mm3 (0.0-0.1); Basophils Percent Auto 1.4 % (0.2-1.2); Eosinophils Absolute Auto 0.1 K/mm3 (0-0.3); Eosinophils Percent Auto 0.8 % (0-4.4); Hematocrit 43.7 % (37.0-47.0); Hemoglobin 14.7 g/dL (12.0-15.0); Immature Granulocyte Absolute 0.01 K/mm3 (0.00-0.031); Immature Granulocyte Percent A 0.2 % (0-0.5); Lymphocytes Absolute Auto 3.68 K/mm3 (0.9-3.2); Lymphocytes Percent Auto 56.8 % (18.3-44.2); Mean Corpuscular HGB Conc 33.6 g/dl (32-36); Mean Corpuscular Hemoglobin 32.1 pg (26-34); Mean Corpuscular Volume 95.4 fl (80-100); Mean Platelet Volume 9.2 fl (7.4-10.4); Monocytes Absolute Auto 0.4 K/mm3 (0.1-0.6); Monocytes Percent Auto 5.4 % (2.6-8.5); Neutrophils Absolute Auto 2.3 K/mm3 (1.3-6.7); Neutrophils Percent Auto 35.4 % (45.5-73.1); Platelet Count Result 252 k/mm3 (150-375); Red Blood Count 4.58 M/mm3 (4.2-5.4); Red Cell Distribution Width 12.9 % (11.5-14.5); White Blood Count 6.5 K/mm3 (4.5-10.0)
[2024-01-27 17:35] LABS: INR 1.1; Prothrombin Time 14.9 Seconds (11.1-14.7)
--- NOTE | 2024-01-27 17:52 | ED.ABDPAIN ---
HPI - Abdominal Pain General Chief Complaint: Shortness of Breath/Dyspnea Stated Complaint: SOB and n/v/d x 1 week Time Seen by Provider: 01/27/24 17:12 Source: patient Mode of arrival: EMS Limitations: no limitations History of Present Illness HPI narrative: This is a 48 year old female that presents to the ER for abdominal pain, nausea and vomiting. Ongoing over the last week. Reports diarrhea as well. Reports she has been feeling short of breath. Reports recently being diagnosed with cervical cancer. Denies fever, lower extremity edema or chest pain. Related Data Home Medications Medication Instructions Recorded Confirmed rizatriptan 5 mg tablet 5 mg PO DAILY PRN Migraine Headache 08/02/22 12/01/23 blood-glucose meter (OneTouch 08/21/22 12/01/23 Verio Reflect Meter) Allergies Allergy/AdvReac Type Severity Reaction Status Date / Time koolaid Allergy Unknown Uncoded 01/27/24 18:16 Review of Systems Review of Systems: CONSTITUTIONAL: Denies fever, CARDIOVASCULAR: Denies chest pain, or edema. RESPIRATORY: Reports dyspnea. GASTROINTESTINAL: Reports abdominal pain, nausea, vomiting, and diarrhea. All systems reviewed & are unremarkable except as noted in HPI and below PMFSH Past Medical History Medical History Acute kidney injury Anxiety Depression Eczema Gastric outlet obstruction Gastrojejunal anastomotic stricture GERD (gastroesophageal reflux disease) GERD (gastroesophageal reflux disease) Hypokalemia Lupus Lupus (systemic lupus erythematosus) Mass on back Migraines Normal blood sugar Raynaud disease Systemic lupus erythematosus Surgical History Surgical History History of excision of lesion Solar lentigo from the left lateral canthus. History of gastric bypass (2010) x 2. History of gastric bypass History of laparoscopic cholecystectomy (2003) History of tonsillectomy History of ventral hernia repair (05/2016) Incarcerated ventral hernia repair with extensive adhesiolysis. 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 S/P cholecystectomy Family History Family History Mother Diabetes mellitus Cancer Hypertension Colon cancer Father Diabetes mellitus Hypertension FH: CABG (coronary artery bypass surgery) Sibling Hypothyroid Hypertension Mother Brain cancer Colon cancer Diabetes mellitus Hypertension Father Diabetes mellitus Hypertension H/O heart surgery Social History Social History Social History: The patient is and lives in [place] with her 2 children. 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 She designates her father, Maikel Adair, as her surrogate decision maker and she wishes to be a full code. Code status full code Smoking status: Never smoker Alcohol intake: never Substance use: never Substance use type: does not use Do You Feel Safe in your Home?: Yes Lack of Transportation: No Lack of Food: Never True Current Housing: I Have Housing Concerned About Future Housing: No Difficulty Paying Gas/Electric Bills: Decline to Answer Difficulty Paying for Meds: No Currently Unemployed: No Education: Associate Degree Difficulty w/ Childcare or Family Care: No Living arrangements: with family Spiritual care concerns: No Exam Narrative: GENERAL: Well-appearing, well-nourished, and in no acute distress. HEAD: Normocephalic, atraumatic. EYES: EOMI. CHEST: Clear to auscultation. No respiratory distress. No wheezes rales or rhonchi HEART: Regular rate and rhythm. No murmur heard. Normal peripheral pulses. ABDOMEN: Soft, nondistended, normal active bowel sounds. Mild tenderness to p
[2024-01-27 18:08] LABS: Appearance Urine Clear (Clear); Bacteria Urine None Seen /hpf; Bilirubin Urine Negative (Negative); Blood Urine Trace (Negative); Color Urine Yellow (Yellow); Glucose Urine UA Negative (Negative); Ketones Urine Negative (Negative); Leukocyte Esterase Ur 1+ LEU/UL (Negative); Need Manual Microscopic Reviewed; Nitrate Urine Negative (Negative); Non Pathogenic Casts 0-2; Protein Urine Negative (Negative); RBC Urine 0-2 /hpf (0-2); Specific Grav Ur 1.005 (1.001-1.035); Squamous Epithelial Cell Urine None seen /hpf (Few); Urobilinogen Urine 0.2 mg/dL (<2.0); WBC Urine 0-5 /hpf; pH Urine 6.5 (5.0-9.0)
[2024-01-27 18:09] LABS: Add Urine Microscopic? YES
[2024-01-27] MEDS: FAMOTIDINE 20 MG/2 ML VIAL IV PUSH (18:18)
[2024-01-27] MEDS: ONDANSETRON INJ 4 MG/2 ML VIAL IV PUSH (18:18)
[2024-01-27] MEDS: SODIUM CHLORIDE 0.9% IV 500 ML 999 ML IV CONT (18:18)
[2024-01-27 18:34] LABS: D Dimer 0.68 ug/mL (<0.48)
[2024-01-27 19:24] LABS: Alanine Aminotransferase 169 U/L (6-35); Albumin Level 4.1 g/dL (3.5-5.1); Alkaline Phosphatase 101 U/L (38-126); Anion Gap 11 mmol/L (8-16); Aspartate Amino Transferase 217 U/L (14-36); Bilirubin,Total 0.7 mg/dL (0.2-1.3); Blood Urea Nitrogen 11 mg/dL (7-17); Calcium 8.6 mg/dL (8.4-10.2); Carbon Dioxide 25 mmol/L (22-30); Chloride 101 mmol/L (98-107); Estimated CRCL calculation 99 ml/min; Estimated Glomerular Filt Rate > 60; Glucose 103 mg/dL (65-110); Potassium 4.1 mmol/L (3.4-5.0); Sodium 137 mmol/L (137-145)
[2024-01-27 19:32] LABS: NT Pro B Type Natriuretic Pept < 20 pg/mL (19.9-100)
[2024-01-27 19:38] LABS: Lipase 297 U/L (23-300)
== END 2024-01-27 21:34 | disposition home or self-care (01) ==
PROVIDERS: Emergency Provider Physician Assistant; PCP Physician Assistant
DX: R10.10 Upper abdominal pain, unspecified (principal); R06.00 Dyspnea, unspecified; C53.9 Malignant neoplasm of cervix uteri, unspecified; K21.9 Gastro-esophageal reflux disease without esophagitis; M32.9 Systemic lupus erythematosus, unspecified; I73.00 Raynaud's syndrome without gangrene; Z98.84 Bariatric surgery status; Z90.49 Acquired absence of other specified parts of digestive tract; K43.9 Ventral hernia without obstruction or gangrene; R94.31 Abnormal electrocardiogram [ECG] [EKG]
CPT/HCPCS: 36415; 71046; 71275; 74177; 80053; 81001; 81025; 83690; 83880; 85025; 85380; 85610; 85730; 93005; 96361; 96374; 96375; 99284; J2405; J7040; Q9967

== ENCOUNTER 2024-02-04 14:22 | Outpatient (CLI) | payer BC, OTHER, SELFPAY ==
--- NOTE | ~2024-02-04 | XR_ITS ---
EXAMINATION: XR chest 2V DATE: 02/04/2024 14:39 INDICATION: Dyspnea. TECHNIQUE: Frontal and lateral views of the chest were obtained. COMPARISON: Chest 2 views 01/27/2024, chest CT 01/27/2024 FINDINGS: There is eventration of anterior right hemidiaphragm. No pneumonia, pleural effusion, or pn eumothorax. The heart size is normal. Surgical clips in the right upper quadrant are likely from chol ecystectomy. IMPRESSION: 1. No acute cardiopulmonary disease. Reviewed, dictated and finalized at location E. MINER
== END 2024-02-04 14:23 | disposition home or self-care (01) ==
PROVIDERS: PCP Physician Assistant; Visit Provider Physician Assistant
DX: R06.00 Dyspnea, unspecified (principal)
CPT/HCPCS: 71046

== ENCOUNTER 2024-07-20 01:04 | Emergency (ER) | payer BC, OTHER, SELFPAY ==
--- NOTE | ~2024-07-20 | CT_ITS ---
EXAMINATION: CT brain wo con DATE: 07/20/2024 03:05 INDICATION: Right face tingling. TECHNIQUE: Computed tomography (CT) of the head was performed without intravenous contrast. The mA wa s adjusted according to patient size. Iterative reconstruction technique was employed. The dose-lengt h product was 529.67 mGy-cm. COMPARISON: Head CT 04/21/2021 FINDINGS: There is no intracranial hemorrhage, acute infarction, or abnormal intracranial mass lesion . The ventricles are normal in size. The orbits are normal. The paranasal sinuses are clear. The mast oid air cells are normal. IMPRESSION: 1. Normal brain. Reviewed, dictated and finalized at location A. IMPRESSION: 1. Normal brain.
--- NOTE | ~2024-07-20 | XR_ITS ---
EXAMINATION: XR chest 1V portable DATE: 07/20/2024 02:16 INDICATION: Weakness. Facial swelling. Shortness of breath. TECHNIQUE: A single frontal view of the chest was obtained. COMPARISON: Chest 2 views 02/04/2024 FINDINGS: There is chronic mild elevation of right hemidiaphragm. No pneumonia, pleural effusion, or pneumothorax. The heart size is normal. Surgical clips in the right upper quadrant are likely from ch olecystectomy. IMPRESSION: 1. No acute cardiopulmonary disease. Reviewed, dictated and finalized at location A.
[2024-07-20 01:17] LABS: Glucose Point of Care 84 mg/dl (65-105)
[2024-07-20 01:19] VITALS: BP 140/96; PULSE 96; RESP 16; TEMP 36.3; O2SAT 98
[2024-07-20 01:47] VITALS: PULSE 89; RESP 15; O2SAT 100
[2024-07-20 02:01] LABS: Basophils Percent Auto 0.4 % (0.2-1.2); Eosinophils Absolute Auto 0.1 K/mm3 (0-0.3); Eosinophils Percent Auto 0.6 % (0-4.4); Hematocrit 41.6 % (37.0-47.0); Immature Granulocyte Absolute 0.04 K/mm3 (0.00-0.031); Immature Granulocyte Percent A 0.4 % (0-0.5); Immature Platelet Fraction Pct 3.4 % (0.9-11.2); Lymphocytes Absolute Auto 2.77 K/mm3 (0.9-3.2); Lymphocytes Percent Auto 31.1 % (18.3-44.2); Mean Corpuscular HGB Conc 33.7 g/dl (32-36); Mean Corpuscular Hemoglobin 32.9 pg (26-34); Mean Corpuscular Volume 97.9 fl (80-100); Mean Platelet Volume 9.6 fl (7.4-10.4); Monocytes Absolute Auto 0.4 K/mm3 (0.1-0.6); Monocytes Percent Auto 4.7 % (2.6-8.5); Neutrophils Absolute Auto 5.6 K/mm3 (1.3-6.7); Neutrophils Percent Auto 62.8 % (45.5-73.1); Platelet Count Result 135 k/mm3 (150-375); Red Blood Count 4.25 M/mm3 (4.2-5.4); Red Cell Distribution Width 12.7 % (11.5-14.5); White Blood Count 8.9 K/mm3 (4.5-10.0)
[2024-07-20 02:06] LABS: Alanine Aminotransferase 94 U/L (6-35); Albumin Level 4.3 g/dL (3.5-5.1); Alkaline Phosphatase 92 U/L (38-126); Anion Gap 10 mmol/L (4-12); Aspartate Amino Transferase 91 U/L (14-36); Bilirubin,Total 1.2 mg/dL (0.2-1.3); Blood Urea Nitrogen 12 mg/dL (7-17); Calcium 9.1 mg/dL (8.4-10.2); Carbon Dioxide 29 mmol/L (22-30); Chloride 97 mmol/L (98-107); Estimated CRCL calculation 93 ml/min; Estimated Glomerular Filt Rate > 60; Glucose 100 mg/dL (65-110); Potassium 3.3 mmol/L (3.4-5.0); Sodium 136 mmol/L (137-145)
[2024-07-20] MEDS: SODIUM CHLORIDE 0.9% IV 1,000 ML 999 ML IV CONT (02:11)
--- NOTE | 2024-07-20 02:23 | ED.GENADULT ---
HPI - General Adult General Chief complaint: Unspecified Stated complaint: low blood sugar/face swelling Time Seen by Provider: 07/20/24 02:00 History of Present Illness HPI narrative: patient 49-year-old female presents emergency department chief complaint of hypoglycemia. Patient reports she has had episodes before where her blood sugar does low patient states this evening she noticed that her blood sugar dropped down via her Dexcom and reports that she felt as though the right side of her face was starting to swell the patient states she took some Benadryl and also noticed that she had some tingling on the right side of her face the patient reports no motor weakness reports no facial droop denies difficulty talking or swallowing reports no weakness in her arms or legs denies numbness or tingling in her arms or legs or any weakness in her arms or legs Related Data Home Medications Medication Instructions Recorded Confirmed rizatriptan 5 mg tablet 5 mg PO DAILY PRN Migraine Headache 08/02/22 12/01/23 blood-glucose meter (OneTouch 08/21/22 12/01/23 Verio Reflect Meter) Allergies Allergy/AdvReac Type Severity Reaction Status Date / Time koolaid Allergy Unknown Uncoded 07/20/24 01:52 Review of Systems Review of Systems: A 10 system review of systems was completed on the patient and is negative except for what is stated in the HPI. Nursing and ancillary documentation was reviewed. [facility] Past Medical History Medical History Acute kidney injury Anxiety Depression Eczema Gastric outlet obstruction Gastrojejunal anastomotic stricture GERD (gastroesophageal reflux disease) GERD (gastroesophageal reflux disease) Hypokalemia Lupus Lupus (systemic lupus erythematosus) Mass on back Migraines Normal blood sugar Raynaud disease Systemic lupus erythematosus Surgical History Surgical History History of excision of lesion Solar lentigo from the left lateral canthus. History of gastric bypass (2010) x 2. History of gastric bypass History of laparoscopic cholecystectomy (2003) History of tonsillectomy History of ventral hernia repair (05/2016) Incarcerated ventral hernia repair with extensive adhesiolysis. 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 S/P cholecystectomy Family History Family History Mother Diabetes mellitus Cancer Hypertension Colon cancer Father Diabetes mellitus Hypertension FH: CABG (coronary artery bypass surgery) Sibling Hypothyroid Hypertension Mother Brain cancer Colon cancer Diabetes mellitus Hypertension Father Diabetes mellitus Hypertension H/O heart surgery Social History Social History Social History: The patient is and lives in [place] with her 2 children. 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 She designates her father, Maikel Adair, as her surrogate decision maker and she wishes to be a full code. Code status full code Smoking status: Never smoker Alcohol intake: never Substance use: never Substance use type: does not use Do You Feel Safe in your Home?: Yes Lack of Transportation: No Lack of Food: Never True Current Housing: I Have Housing Concerned About Future Housing: No Difficulty Paying Gas/Electric Bills: Decline to Answer Difficulty Paying for Meds: No Currently Unemployed: No Education: Associate Degree Difficulty w/ Childcare or Family Care: No Living arrangements: with family Spiritual care concerns: No Exam Narrative: GENERAL: Well-appearing, well-nourished, and in no acute distress. HEAD: Normocephalic, atraumatic. EYES:
[2024-07-20] MEDS: POTASSIUM CHLORIDE 20 MEQ PACKET (FOR LIQUID) 40 MEQ PO (02:40)
[2024-07-20 02:42] LABS: Magnesium 1.6 mg/dL (1.6-2.3)
[2024-07-20 02:43] LABS: Glucose Point of Care 66 mg/dl (65-105)
[2024-07-20] MEDS: MAGNESIUM SULF 2 GM/WATER 50ML 2 GM/50 ML BAG IVPB (02:53)
[2024-07-20 02:55] LABS: Lactic Acid Reflex 1.1 mmol/L (0.7-2.0)
[2024-07-20 03:22] LABS: Influenza A QL RT-PCR Negative (Negative); Influenza B QL RT-PCR Negative (Negative); RSV RNA, RT-PCR Negative (Negative); SARS-CoV-2 RNA PCR Negative (Negative)
[2024-07-20 03:38] LABS: Add Urine Microscopic? YES; Appearance Urine Clear (Clear); Bilirubin Urine 2+ (Negative); Blood Urine Negative (Negative); Color Urine Dark Yellow (Yellow); Glucose Urine UA Negative (Negative); Ketones Urine Trace mg/dL (Negative); Leukocyte Esterase Ur 1+ LEU/UL (Negative); Need Manual Microscopic Reviewed; Nitrate Urine Negative (Negative); Non Pathogenic Casts 0-2; Protein Urine Trace mg/dL (Negative); Squamous Epithelial Cell Urine Few /hpf (Few)
[2024-07-20 03:49] VITALS: BP 129/97; PULSE 84; RESP 18; O2SAT 100
[2024-07-20 03:54] LABS: Bacteria Urine 1+ /hpf
[2024-07-20 03:55] LABS: Glucose Point of Care 76 mg/dl (65-105)
--- NOTE | 2024-07-20 04:41 | PC.NURSE ---
0239: This RN checked pt glucose at 0239 and it read at 66. Glucometer read it as normal at this time. 0352: This RN checked pt glucose again at 0352 and it read 76. This RN gave pt orange juice to drink at this time.
--- NOTE | 2024-07-20 04:57 | PC.NURSE ---
RN checked pt glucose again and it was 70. This Rn notified Dr. Trevino and got her some food (sandwich, crackers, peaches, pudding, and pretzels).
[2024-07-20 04:58] LABS: Glucose Point of Care 70 mg/dl (65-105)
[2024-07-20 05:35] LABS: Glucose Point of Care 120 mg/dl (65-105)
[2024-07-20 05:57] VITALS: BP 150/92; PULSE 89; RESP 18; O2SAT 100
[2024-07-20 06:12] LABS: Glucose Point of Care 148 mg/dl (65-105)
== END 2024-07-20 06:29 | disposition home or self-care (01) ==
PROVIDERS: Emergency Provider Emergency Medicine; PCP Physician Assistant
DX: N39.0 Urinary tract infection, site not specified (principal); E16.2 Hypoglycemia, unspecified; I73.00 Raynaud's syndrome without gangrene; K21.9 Gastro-esophageal reflux disease without esophagitis; M32.9 Systemic lupus erythematosus, unspecified; Z98.84 Bariatric surgery status; Z90.49 Acquired absence of other specified parts of digestive tract; Z20.822 Contact with and (suspected) exposure to COVID-19
CPT/HCPCS: 36415; 70450; 71045; 80053; 81001; 82948; 83605; 83735; 85025; 85055; 87086; 87088; 87637; 96365; 96366; 99284; A9270; J3475; J7030

== ENCOUNTER 2024-08-15 10:14 | Outpatient (CLI) | payer BC, OTHER, SELFPAY ==
--- NOTE | ~2024-08-15 | XR_ITS ---
XR abdomen/kub 1V Ordering provider: EMMA Rangel History: . R11.2 - Nausea with vomiting, unspecified . Comparison: None. FINDINGS: BOWEL: Nonobstructive bowel gas pattern. ORGANOMEGALY: None. SIGNIFICANT PATHOLOGIC CALCIFICATIONS: Possible left kidney stone. OTHER: No free air is seen under the diaphragm. IMPRESSION: NO ACUTE ABDOMINAL FINDINGS. Possible left kidney stone although this may be postoperative changes Reviewed, dictated and finalized at location A.
== END 2024-08-15 10:15 | disposition home or self-care (01) ==
PROVIDERS: PCP Physician Assistant; Visit Provider Nurse Practitioner Family
DX: R11.2 Nausea with vomiting, unspecified (principal)
CPT/HCPCS: 74018

== ENCOUNTER 2024-08-22 22:27 | Emergency (ER) | payer BC, OTHER, SELFPAY ==
--- NOTE | ~2024-08-22 | CT_ITS ---
CT of the Abdomen and Pelvis: Indication: Abdominal pain Technique: 2.5 mm axial scans were obtained through the abdomen and pelvis following intravenous adm inistration of 100 cc of Omnipaque 350. Dose reduction technique was used on this scan by utilizing a utomated exposure control and iterative reconstruction technique. The dose-length product (DLP) was 1 289.61 mGy-cm. COMPARISON: 01/27/2024 Findings: Scans through the lung bases are unremarkable. There is diffuse hepatic steatosis. Cholecystectomy clips are present. The spleen, pancreas, adrenals and kidneys are within normal limits. No evidence of aortic aneurysm. No lymphadenopathy. There is evidence of prior bariatric surgery. There is apparent fatty infiltration of the gastric wal l, unchanged. There is an umbilical hernia containing a loop of small bowel. No bowel obstruction.. Images through the pelvis were performed. Urinary bladder unremarkable. No pelvic mass seen. No ascit es. Impression: Stable umbilical hernia containing a focal loop of small bowel. No bowel obstruction or acute bowel w all thickening. Chronic fatty infiltration of the gastric wall, which could reflect sequela of chronic inflammation. Diffuse hepatic status. Reviewed, dictated and finalized at location . Impression: Stable umbilical hernia containing a focal loop of small bowel. No bowel obstru ction or acute bowel wall thickening. Chronic fatty infiltration of the gastric wall, which could reflect sequela of chronic inflammation. Diffuse hepatic status.
[2024-08-22 23:01] VITALS: BP 127/89; PULSE 99; RESP 20; TEMP 36.7; O2SAT 97
[2024-08-22 23:42] VITALS: BP 86/50; PULSE 92; RESP 28; O2SAT 99
--- NOTE | 2024-08-22 23:53 | ECG_ITS ---
Test Date: 2024-08-22 23:57:50 Measurements Intervals [place] Rate: 80 P: 35 ME: 147 QRS: -2 QRSD: 94 T: 20 QT: 395 QTc: 457 Interpretive Statements SINUS RHYTHM LOW QRS VOLTAGE IN PRECORDIAL LEADS LEFT VENTRICULAR HYPERTROPHY BORDERLINE R WAVE PROGRESSION, ANTERIOR LEADS BASELINE ARTIFACT- I, II, III, AVR, AVL, AVF, V5 BORDERLINE ECG No previous ECG available for comparison Electronically Signed On 08-23-2024 06:41:28 CDT by Alan Chavez D.O.
[2024-08-22 23:55] VITALS: BP 137/87; PULSE 83; RESP 14; O2SAT 97
[2024-08-23 00:09] LABS: Basophils Absolute Auto 0.1 K/mm3 (0.0-0.1); Basophils Percent Auto 0.6 % (0.2-1.2); Eosinophils Absolute Auto 0.1 K/mm3 (0-0.3); Eosinophils Percent Auto 0.6 % (0-4.4); Hematocrit 43.6 % (37.0-47.0); Hemoglobin 14.9 g/dL (12.0-15.0); Immature Granulocyte Absolute 0.03 K/mm3 (0.00-0.031); Immature Granulocyte Percent A 0.3 % (0-0.5); Lymphocytes Absolute Auto 4.38 K/mm3 (0.9-3.2); Lymphocytes Percent Auto 40.5 % (18.3-44.2); Mean Corpuscular HGB Conc 34.2 g/dl (32-36); Mean Corpuscular Hemoglobin 33.3 pg (26-34); Mean Corpuscular Volume 97.3 fl (80-100); Monocytes Absolute Auto 0.4 K/mm3 (0.1-0.6); Neutrophils Absolute Auto 5.9 K/mm3 (1.3-6.7); Platelet Count Result 209 k/mm3 (150-375); Red Blood Count 4.48 M/mm3 (4.2-5.4); White Blood Count 10.8 K/mm3 (4.5-10.0)
[2024-08-23 00:22] LABS: Potassium 3.2 mmol/L (3.4-5.0)
[2024-08-23 00:50] LABS: Bilirubin,Total 1.3 mg/dL (0.2-1.3)
[2024-08-23 00:51] LABS: Lipase 217 U/L (23-300)
[2024-08-23 01:02] LABS: Alanine Aminotransferase 38 U/L (6-35); Albumin Level 4.6 g/dL (3.5-5.1); Alkaline Phosphatase 95 U/L (38-126); Anion Gap 13 mmol/L (4-12); Aspartate Amino Transferase 66 U/L (14-36); Blood Urea Nitrogen 12 mg/dL (7-17); Calcium 9.5 mg/dL (8.4-10.2); Carbon Dioxide 25 mmol/L (22-30); Chloride 97 mmol/L (98-107); Estimated CRCL calculation 60 ml/min; Estimated Glomerular Filt Rate > 60; Glucose 154 mg/dL (65-110); Sodium 135 mmol/L (137-145)
[2024-08-23] MEDS: ONDANSETRON INJ 4 MG/2 ML VIAL IV PUSH (02:03)
[2024-08-23] MEDS: MORPHINE SULFATE (*CRX) 4 MG/ML INJ IV PUSH (02:04)
[2024-08-23 02:12] LABS: BEDSIDEPREGUCG Negative (Negative)
--- NOTE | 2024-08-23 02:27 | ED.ABDPAIN ---
HPI - Abdominal Pain General Chief Complaint: Abdominal Pain Stated Complaint: abd pain Time Seen by Provider: 08/23/24 00:52 History of Present Illness HPI narrative: Patient is a 49-year-old female who presents to the emergency department this evening complaining of intermittent abdominal pain. Patient states that initially when the pain started it was severe and she called EMS and was brought to our facility. By the time patient arrived to the ER, she was taken to triage as there were no available rooms and patient's abdominal pain has resolved. While waiting in the emergency department waiting room, patient states that the pain has returned. Patient states that pain initially started yesterday and has been intermittent in nature but prior to coming to the emergency department it had reached its peak. Patient does have a history of gastric bypass surgery over 5 years ago and states that she has developed a hernia from then which has caused her some issues in the past. Patient is scheduled for an EGD tomorrow with Dr. Irving. She denies any nausea or vomiting and denies any diarrhea, denies any fevers or chills at home denies any urinary symptoms including dysuria or hematuria. No additional symptoms or concerns at this time. Related Data Home Medications Medication Instructions Recorded Confirmed rizatriptan 5 mg tablet 5 mg PO DAILY PRN Migraine Headache 08/02/22 08/22/24 blood-glucose meter (OneTouch 08/21/22 08/18/24 Verio Reflect Meter) Allergies Allergy/AdvReac Type Severity Reaction Status Date / Time koolaid Allergy Unknown Uncoded 08/22/24 23:10 Review of Systems Review of Systems: All systems are reviewed and are negative unless stated otherwise in the HPI. [facility] Past Medical History Medical History Acute kidney injury Anxiety Depression Eczema Erosive esophagitis Gastric outlet obstruction Gastrojejunal anastomotic stricture GERD (gastroesophageal reflux disease) GERD (gastroesophageal reflux disease) Hematemesis Hiatal hernia Hypokalemia Lupus Lupus (systemic lupus erythematosus) Mass on back Migraines Normal blood sugar Raynaud disease Systemic lupus erythematosus Umbilical hernia Surgical History Surgical History History of excision of lesion Solar lentigo from the left lateral canthus. History of gastric bypass (2010) x 2. History of gastric bypass History of laparoscopic cholecystectomy (2003) History of tonsillectomy History of ventral hernia repair (05/2016) Incarcerated ventral hernia repair with extensive adhesiolysis. 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 S/P cholecystectomy Family History Family History Mother Diabetes mellitus Cancer Hypertension Colon cancer Father Diabetes mellitus Hypertension FH: CABG (coronary artery bypass surgery) Sibling Hypothyroid Hypertension Mother Brain cancer Colon cancer Diabetes mellitus Hypertension Father Diabetes mellitus Hypertension H/O heart surgery Social History Social History Social History: The patient is and lives in [place] with her 2 children. 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 She designates her father, Maikel Adair, as her surrogate decision maker and she wishes to be a full code. Code status full code Smoking status: Never smoker Alcohol intake: current Drinks per week: 1 Substance use: never Substance use type: does not use Do You Feel Safe in your Home?: Yes Lack of Transportation: No Lack of Food: Never True Current Housing: I Have Housing Concerned About Future Housing: No Difficulty Paying Gas/Electric
[2024-08-23 02:42] LABS: Add Urine Microscopic? YES; Appearance Urine Cloudy (Clear); Bacteria Urine 4+ /hpf; Bilirubin Urine 2+ (Negative); Blood Urine Trace (Negative); Budding Yeast Urine Present /hpf; Color Urine Dark Yellow (Yellow); Glucose Urine UA Negative (Negative); Hyaline Casts Urine Present /lpf; Ketones Urine 1+ mg/dL (Negative); Leukocyte Esterase Ur Trace LEU/UL (Negative); Need Manual Microscopic Reviewed; Nitrate Urine Negative (Negative); Non Pathogenic Casts >20; Protein Urine 1+ mg/dL (Negative); Specific Grav Ur 1.045 (1.001-1.035); Squamous Epithelial Cell Urine Many /hpf (Few); pH Urine 5.5 (5.0-9.0)
== END 2024-08-23 04:08 | disposition home or self-care (01) ==
PROVIDERS: Emergency Provider Emergency Medicine; PCP Physician Assistant
DX: N39.0 Urinary tract infection, site not specified (principal); R10.9 Unspecified abdominal pain; Z98.84 Bariatric surgery status; F41.9 Anxiety disorder, unspecified; F32.A Depression, unspecified; K21.9 Gastro-esophageal reflux disease without esophagitis; M32.9 Systemic lupus erythematosus, unspecified; I73.00 Raynaud's syndrome without gangrene
CPT/HCPCS: 36415; 74177; 80053; 81001; 81025; 83690; 85025; 87086; 87088; 93005; 96374; 96375; 99284; J2270; J2405; Q9967

== ENCOUNTER 2024-08-23 02:08 | Day surgery (SDC) | payer BC, OTHER, SELFPAY ==
[2024-08-22 12:58] VITALS: BMI 39.5
[2024-08-23 07:59] VITALS: BP 150/109; PULSE 102; RESP 18; TEMP 36.1; O2SAT 100; BMI 39.2
[2024-08-23 08:11] LABS: BEDSIDEPREGUCG Negative (Negative)
[2024-08-23 08:12] LABS: Glucose Point of Care 101 mg/dl (65-105)
[2024-08-23] MEDS: LACTATED RINGERS 1,000 ML 150 ML IV CONT (08:12)
--- NOTE | 2024-08-23 08:41 | WPDHPUPDATE1 ---
History and Physical Update Update Date/Time: 08/23/24 08:41 History and Physical has been reviewed, including an updated exam of the patient. There are NO changes in the patient's condition. Risks, benefits, and alternatives have been discussed and questions answered. Patient agrees to proceed with procedure.
--- NOTE | 2024-08-23 08:44 | WPDANESEPPF ---
Anes - Initial Pre Proc Eval Procedure: Operation Date: 08/23/24 09:00 Proposed Procedures p Esophagogastroduodenoscopy - Sidney Webster MD Date/Time: 08/23/24 08:44 Surgeon: Sidney Webster MD Pre Op Diagnosis: Bariatric status, GERD, Hematemesis,ulcer Patient Data Age: 49 Gender: F Height: 1.57 m Weight: 97.3 kg Last Vital Signs Temp 96.9 F L 08/23/24 07:59 Pulse 102 H 08/23/24 07:59 Resp 18 08/23/24 07:59 BP 150/109 H 08/23/24 07:59 Pulse Ox 100 08/23/24 07:59 O2 Del Method Room Air 08/23/24 07:59 Allergies Allergy/AdvReac Type Severity Reaction Status Date / Time koolaid Allergy Unknown Uncoded 08/23/24 07:57 Home Medications Medication Instructions Recorded Confirmed Type rizatriptan 5 mg tablet 5 mg PO DAILY PRN Migraine Headache 08/02/22 08/23/24 History blood-glucose meter #1 ea 08/03/22 08/18/24 Rx blood-glucose meter (OneTouch 08/21/22 08/18/24 History Verio Reflect Meter) blood sugar diagnostic (OneTouch #400 ea 12/01/23 08/18/24 Rx Verio test strips) lancets 33 gauge (OneTouch Delica #400 ea 12/01/23 08/18/24 Rx Plus Lancet) blood-glucose sensor (Dexcom G7 #9 ea 04/11/24 08/18/24 Rx Sensor device) cephalexin 500 mg capsule 500 mg PO Q12H 5 days #10 caps 08/23/24 08/23/24 Rx Laboratory Tests 08/23/24 08/23/24 08:07 08:09 POC Capillary Glucose 101 mg/dl (65-105) POC Urine HCG, Qual Negative (Negative) Patient hx anesthesia problems: none Family hx anesthesia problems: none Results Review: All pre-operative results and documents have been reviewed as part of the pre-operative evaluation. [facility] Past Medical History Medical History Acute kidney injury Anxiety Depression Eczema Erosive esophagitis Gastric outlet obstruction Gastrojejunal anastomotic stricture GERD (gastroesophageal reflux disease) GERD (gastroesophageal reflux disease) Hematemesis Hiatal hernia Hypokalemia Lupus Lupus (systemic lupus erythematosus) Mass on back Migraines Normal blood sugar Raynaud disease Systemic lupus erythematosus Umbilical hernia Surgical History Surgical History History of excision of lesion Solar lentigo from the left lateral canthus. History of gastric bypass (2010) x 2. History of gastric bypass History of laparoscopic cholecystectomy (2003) History of tonsillectomy History of ventral hernia repair (05/2016) Incarcerated ventral hernia repair with extensive adhesiolysis. 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 S/P cholecystectomy Family History Family History Mother Diabetes mellitus Cancer Hypertension Colon cancer Father Diabetes mellitus Hypertension FH: CABG (coronary artery bypass surgery) Sibling Hypothyroid Hypertension Mother Brain cancer Colon cancer Diabetes mellitus Hypertension Father Diabetes mellitus Hypertension H/O heart surgery Social History Social History Social History: The patient is and lives in [place] with her 2 children. 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 She designates her father, Maikel Adair, as her surrogate decision maker and she wishes to be a full code. Code status full code Smoking status: Never smoker Alcohol intake: current Drinks per week: 1 Substance use: never Substance use type: does not use Do You Feel Safe in your Home?: Yes Lack of Transportation: No Lack of Food: Never True Current Housing: I Have Housing Concerned About Future Housing: No Difficulty Paying Gas/Electric Bills: Decline to Answer Difficulty Paying f
[2024-08-23 09:02] VITALS: BP 134/96; PULSE 92; RESP 20; O2SAT 100
[2024-08-23 09:12] VITALS: BP 141/89; PULSE 75; RESP 20; O2SAT 100
[2024-08-23 09:22] VITALS: BP 135/98; PULSE 75; RESP 17; O2SAT 95
--- NOTE | 2024-08-23 09:31 | SUR.PHASEII ---
Blood sugar per dexcom 101
== END 2024-08-23 09:41 | disposition home or self-care (01) ==
PROVIDERS: Anesthesiology; PCP Physician Assistant; Referring Provider Nurse Practitioner Family; Visit Provider Internal Medicine Gastroenterology
PROC: 0DJ08ZZ Inspection of Upper Intestinal Tract, Via Natural or Artificial Opening Endoscopic (ICD-10-PCS; CPT 43235; principal; 2024-08-23 09:00)
DX: R10.12 Left upper quadrant pain (principal); R11.2 Nausea with vomiting, unspecified; R19.7 Diarrhea, unspecified; Z98.84 Bariatric surgery status; K91.89 Other postprocedural complications and disorders of digestive system; K42.9 Umbilical hernia without obstruction or gangrene; K21.9 Gastro-esophageal reflux disease without esophagitis; M32.9 Systemic lupus erythematosus, unspecified; I73.00 Raynaud's syndrome without gangrene; F41.9 Anxiety disorder, unspecified; F32.A Depression, unspecified; E66.9 Obesity, unspecified; Z68.39 Body mass index [BMI] 39.0-39.9, adult
CPT/HCPCS: 43235; 36415; 74177; 80053; 81001; 81025; 82948; 83690; 85025; 87086; 93005; 96374; 96375; 99284; J2270; J2405; J7120; Q9967

== ENCOUNTER 2024-08-24 14:03 | Outpatient (CLI) | payer BC, OTHER, SELFPAY ==
[2024-08-24 17:04] LABS: Toxigenic C. Diff NEGATIVE (NEGATIVE)
[2024-08-29 11:52] LABS: Trichrome Ova and Parasites STATUS: FINAL
[2024-08-30 18:58] LABS: Fecal Fat, Ql NORMAL (NORMAL)
[2024-09-01 20:29] LABS: Calprotectin, Stool 1040 mcg/g
[2024-09-09 19:08] LABS: Pancreatic Elastase, Stool 74 mcg/g
== END 2024-08-24 14:04 | disposition home or self-care (01) ==
LOC: ANHLAB 14:07
PROVIDERS: PCP Physician Assistant; Visit Provider Nurse Practitioner Family
DX: R10.9 Unspecified abdominal pain (principal); R19.7 Diarrhea, unspecified
CPT/HCPCS: 82653; 82705; 83993; 87045; 87177; 87209; 87269; 87427; 87449; 87493

== ENCOUNTER 2024-09-22 11:30 | Inpatient (IN) | payer BC, OTHER, SELFPAY ==
[2024-09-15 10:50] VITALS: BMI 31.3
--- NOTE | 2024-09-15 10:51 | PC.NURSE ---
Report to the Outpatient Waiting Room, entrance under the green pavilion located off [facility], at time _0600_ on date _[id number]_. Planned Procedure Time: _0730_.? Time changes happen often and if your time is changed the preop area will call you the afternoon before. - You and your visitor will be asked to self-screen and do not enter if you have any COVID symptoms. Please call surgeon if you need to reschedule. - A mask is optional within the hospital at this time. Patients may have clear liquids (water, carbonated beverages, clear teas, apple juice) until 3 hours prior to surgery with a maximum of 20 ounces. - No food from midnight until time of surgery and no smoking Take only the following medications with a SIP of water on the morning of surgery: ___None____ DO NOT STOP ANY OF YOUR OTHER PRESCRIPTION MEDICATIONS PRIOR TO SURGERY EXCEPT THE FOLLOWING Medications to discontinue per physician ____None Date to take last dose Please no make-up, nail citizen of [place], hairspray, perfume, deodorant, or body powder the day of surgery.? No jewelry (including any body piercings) or valuables the day of surgery, leave them at home.? Please take a shower or bath the night before, or the morning of, surgery with an antibacterial soap.? Wear comfortable, loose fitting clothing.? - Jewelry must be removed prior to entering the operating room.? Rings and piercings that are not removed may be cut off. - The hospital will not accept responsibility for valuables.? - Please leave all valuables, including medications, at home the day of surgery. If you are going home after surgery, a licensed pick up driver must drive you home.? - NO public transportation without another adult if you receive anesthesia. - We recommend that an adult stay with you for 24 hours following discharge. - We also recommend that you do not drive, make important decision, drink alcoholic beverages, or take any drugs that were not prescribed by your health care provider for at least 24 hours after your discharge time. Follow any additional instructions given to you from your surgeon. Telephone instructions given to __Nara___and asked if any additional questions and then verbalized understanding. Patient advised to call surgeon office or pre surgery nurse liaison [phone] if any additional questions.
[2024-09-22] VITALS (8 sets, daily range): BP systolic 131–145; BP diastolic 84–101; PULSE 88–107; RESP 14–20; TEMP 36.2–37.1; O2SAT 94–100; BMI 39.3
[2024-09-22 06:18] LABS: Glucose Point of Care 101 mg/dl (65-105)
--- NOTE | 2024-09-22 06:52 | P.PNAN_ITS ---
Anes - Initial Pre Proc Eval Procedure: Operation Date: 09/22/24 07:30 Proposed Procedures p Open Incarcerated Incisional Hernia Repair with Phasix Mesh - Willam Martinez MD Date/Time: 09/22/24 06:52 Surgeon: Willam Martinez MD Pre Op Diagnosis: Incarcerated Incisional Hernia Patient Data Age: 49 Gender: F Height: 1.78 m Weight: 99 kg Allergies Allergy/AdvReac Type Severity Reaction Status Date / Time koolaid Allergy Unknown Uncoded 09/15/24 10:43 Home Medications Medication Instructions Recorded Confirmed Type rizatriptan 5 mg tablet 5 mg PO DAILY PRN Migraine Headache 08/02/22 09/15/24 History blood-glucose meter #1 ea 08/03/22 09/05/24 Rx blood-glucose meter (OneTouch 08/21/22 09/05/24 History Verio Reflect Meter) blood sugar diagnostic (OneTouch #400 ea 12/01/23 09/05/24 Rx Verio test strips) lancets 33 gauge (OneTouch Delica #400 ea 12/01/23 09/05/24 Rx Plus Lancet) blood-glucose sensor (Dexcom G7 #9 ea 04/11/24 09/05/24 Rx Sensor device) omeprazole 20 mg capsule,delayed 20 mg PO BID 08/30/24 09/15/24 History release [id number] See Rx Instructions PO .COMPLEX 09/13/24 09/15/24 Rx 36,000-114,000-180,000 unit #240 caps capsule,delay rel (Creon) Laboratory Tests 09/22/24 06:04 POC Capillary Glucose 101 mg/dl (65-105) Patient hx anesthesia problems: none Family hx anesthesia problems: none Results Review: All pre-operative results and documents have been reviewed as part of the pre- operative evaluation. [facility] Past Medical History Medical History Acute kidney injury Anxiety Depression Eczema Erosive esophagitis Gastric outlet obstruction Gastrojejunal anastomotic stricture GERD (gastroesophageal reflux disease) GERD (gastroesophageal reflux disease) Hematemesis Hiatal hernia Hypokalemia Lupus Lupus (systemic lupus erythematosus) Mass on back Migraines Normal blood sugar Raynaud disease Systemic lupus erythematosus Umbilical hernia Surgical History Surgical History History of excision of lesion Solar lentigo from the left lateral canthus. History of gastric bypass (2010) x 2. History of gastric bypass History of laparoscopic cholecystectomy (2003) History of tonsillectomy History of ventral hernia repair (05/2016) Incarcerated ventral hernia repair with extensive adhesiolysis. 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 S/P cholecystectomy Family History Family History Mother Diabetes mellitus Cancer Hypertension Colon cancer Father Diabetes mellitus Hypertension FH: CABG (coronary artery bypass surgery) Sibling Hypothyroid Hypertension Mother Brain cancer Colon cancer Diabetes mellitus Hypertension Father Diabetes mellitus Hypertension H/O heart surgery Social History Social History Social History: The patient is and lives in [place] with her 2 children. 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 She designates her father, Maikel Adair, as her surrogate decision maker and she wishes to be a full code. Code status full code Smoking status: Never smoker Alcohol intake: current Drinks per week: 1 Substance use: never Substance use type: does not use Do You Feel Safe in your Home?: Yes Lack of Transportation: No Lack of Food: Never True Current Housing: I Have Housing Concerned About Future Housing: No Difficulty Paying Gas/Electric Bills: Decline to Answer Difficulty Paying for Meds: No Currently Unemployed: No Education: Associate Degree Difficulty w/ Childcare or Family Care: No Living arrangements: with family Spiritual care concerns: No Anes - Eval Final PreProcedure Day of Procedure 09/22/24 06:52 Patient weight: obese Heart: regular rate and rhythm Lungs: clear to auscultation Airway: Mallampati scale class II and special considerations poor dentition Neurological: alert and oriented Last oral intake: >/= 8 hours ASA classification: III Emergent: no Anesthetic plan: proceed Anesthesia type and monitoring: general ETT and standard monitoring Results Review: All pre-operative results and documents have been reviewed as part of the pre- operative evaluation. Informed Consent: The patient's anesthetic plan and its attendant risks and benefits were discussed with the patient/family/POA. Questions were solicited and answers provided to the satisfaction of the patient/family/POA.
[2024-09-22] MEDS: ACETAMINOPHEN 500 MG TABLET 1000 MG PO (06:58)
[2024-09-22] MEDS: KETOROLAC 15 MG/ML VIAL (*BKC) IV PUSH ×2 (06:58→09:13)
[2024-09-22] MEDS: LACTATED RINGERS 1,000 ML 30 ML IV CONT ×2 (06:58→10:23)
--- NOTE | 2024-09-22 07:15 | WPDHPUPDATE1 ---
History and Physical Update Update Date/Time: 09/22/24 07:15 History and Physical has been reviewed, including an updated exam of the patient. There are NO changes in the patient's condition. Risks, benefits, and alternatives have been discussed and questions answered. Patient agrees to proceed with procedure.
[2024-09-22] MEDS: BUPivacaine HCL 0.5% PF 30 ML VIAL INFILTRATE (07:23)
[2024-09-22] MEDS: LIDO 1%/EPINEPHRINE 1:100,000 50 ML VIAL 30 ML INFILTRATE (07:23)
[2024-09-22] MEDS: ceFAZolin 2 GM/D5W 50 ML 2 GM/50 ML BAG IVPB (07:23)
--- NOTE | 2024-09-22 10:03 | W.PM.PROC2 ---
Procedure Note - Detailed Date of Procedure 09/22/24 Pre-op Diagnosis Incarcerated Incisional Hernia Post-op Diagnosis Same Procedure Performed Open incarcerated incisional hernia repair with Phasix bioabsorbable mesh. Surgeon Willam Martinez MD Anesthesia General Indications Patient is a 41-year-old female who had a prior umbilical hernia repair by me many years ago. She then had a gastric bypass surgery done at [facility] and then had complications later on of anastomotic stricture and ulceration at the anastomosis. She underwent a laparotomy and revision of her gastric bypass. Since that time she has developed an incisional hernia midline incision. CT scan show a loop of small bowel incarcerated within the hernia without evidence of obstruction. She presents now for an incarcerated incisional hernia repair with bioabsorbable mesh. Findings Patient had an incarcerated incisional hernia above the umbilicus measuring about 4cm in diameter. There was a loop of small bowel incarcerated within the hernia but there was no evidence of bowel obstruction. There was also a 1.3cm 2nd incisional hernia defect approximately 3cm cephalad to the incarcerated hernia with some fatty tissue within it. Upon opening the abdomen in the midline both hernia defects were opened with the midline and a single laparotomy incision was created. Description of Procedure After informed consent was obtained patient brought to the operating room she was placed supine position and general endotracheal anesthesia was administered. A Dangelo catheter was placed decompress the bladder. The abdomen was then prepped and draped usual sterile fashion. A time-out was then performed correctly identifying the patient as well as procedure to be performed. She was given 2g of Ancef for perioperative IV antibiotics. I then proceeded to make a midline incision utilizing a scalpel electrocautery to excise out the old midline scar. Incision started in the upper epigastric region and extended all the way down to below the umbilicus. The skin from the old scar was resected and discarded. I then dissected down through the subcu tissue electrocautery. I dissected down to the fascia in the upper portions of the epigastric region and then divided the fashion stair to enter hopefully with a was no bowel. I entered the abdomen this area there was fatty tissue underneath the area consistent with the falciform ligament. I performed adhesiolysis of the falciform ligament and then eventually the transverse colon some loops of the small bowel off of the undersurface of the anterior abdominal wall. As I was able to dissect the loops of bowel off of the and abdominal wall utilizing combination electrocautery and sharp scissor dissection I was able to further open up the fascia down to the defect. The 1st defect encounter was the 1.3cm defect in the mid epigastric region which some fatty tissue within the hernia defect. I continued dissection and opening the fascia to the main incarcerated hernia defect which is just above the umbilicus containing a loop of small bowel. The loop of small bowel was freed up from the hernia sac with sharp scissor dissection and reduced back into the abdomen. The bowel was not injured during the adhesiolysis. This defect was approximately 4cm in diameter. The distance between the 2 defects was approximately 3cm. I continued to open the fascia below the umbilicus. The fascial edges were then elevated with Heath clamps and then I performed adhesiolysis of the omentum, loops of colon, and loops of small bowel off of the left and right sides of the abdomen until had at least 5cm of rectus muscle circumferentially around the midline free of any bowel or omentum. At this point I chose a piece of mesh after measuring space working with the mesh in intraperitoneal onlay position underneath the rectus muscle. The space was accommodate a piece of Phasix ST mesh with the OPS insert measuring 25cm in length by 20cm in width. The mesh was then placed into the abdomen underneath the rectus muscle intraperitoneally and spread out with the OPS in place. There is no incarceration of bowel or omentum between the mesh and the undersurface of the anterior abdominal wall. The mesh laid out very nicely and was at least 5cm of overlap between the mesh and the edges of the fascia circumferentially. I then removed the OPS insert and then used a open Bard operative fix Tacker circumferentially lay role of absorbable tacks in the mesh pocket. A 2nd Tacker used to place a 2nd roll of circumferential tacks for double crown fixation. A total of 40 absorbable tacks were used. The mesh laid very nicely with small amount tension to reduce filling of the mesh for closure of the fascia. I did pre tension the mesh with pulling the edges of the fascia was the midline upon placing the absorbable tacks. I then irrigated the mesh with sterile saline solution. Hemostasis was good. I checked once more and there is no incarceration of bowel or omentum between the mesh and the undersurface anterior abdominal wall. I then closed the fascia over the mesh utilizing a looped #1 PDS suture started at each end of the incision and run till they met above the closed fascial defect. The sutures were then tied to each other. There is no tension on the closure. I then irrigated out the subcu tissue sterile saline solution hemostasis was good. I then placed interrupted 3-0 Vicryl sutures in subcutaneous tissues which is then followed by a running layer 3-0 Vicryl suture in a intradermal fashion. The skin edges were then approximated utilizing a running subcuticular 4-0 Monocryl suture. The incision was then cleaned and then skin glue and an Op site was placed. An abdominal binder was placed as well. The patient tolerated the procedure well no complications. All sponges, needles, and instrument counts were correct at the end procedure. EBL was _50__cc. The patient was awakened and taken to recovery in stable and satisfactory condition. Implants Bard Phasix ST mesh with OPS insert measuring [id number] placed in a sublay intraperitoneal position fixated with absorbable tacks Estimated Blood Loss 50 Drains No Packing No Pathology None sent Complications No immediate complications Condition Stable Disposition PACU [facility] Billing Surgery - Charge Forward: Surgery Billing
[2024-09-22] MEDS: fentaNYL CITRATE INJ (*CRX) 100 MCG/2 ML VIAL 25 MCG IV PUSH ×3 (10:42→10:53)
[2024-09-22 10:54] LABS: Glucose Point of Care 166 mg/dl (65-105)
--- NOTE | 2024-09-22 11:40 | ADMGEN ---
This patient, Nara Adair, was admitted to [facility] Surg Room 319-01. Patient/family oriented to hospital policies and general routines including ID bracelet, bed and alarms, visiting hours, pain management, procedures, bathroom and other care routines, personal items, smoking policy, room service/diet, and visiting hours. Information on how to activate the Rapid Response Team has been discussed. Patient/Family are encouraged to report perceived risks to care and to ask questions if they do not understand what they are told or what they should do.
[2024-09-22 12:01] LABS: Glucose Point of Care 165 mg/dl (65-105)
[2024-09-22] MEDS: DEXTROSE 5%/0.9% SOD CHL 1,000 ML 100 ML IV CONT (12:17)
[2024-09-22] MEDS: LIDOCAINE 5% PATCH 1 PATCH TRANSDERM (12:17)
[2024-09-22] MEDS: HYDROcodone/acetaminophen (*CRX) 5-325 MG TABLET 1 TAB PO ×2 (12:18→20:00)
[2024-09-22] MEDS: oxyCODONE HCL (*CRX) 5 MG TAB IR PO (16:02)
[2024-09-22] MEDS: PANTOPRAZOLE 40 MG TABLET PO (16:03)
[2024-09-22 16:31] LABS: Glucose Point of Care 177 mg/dl (65-105)
[2024-09-22] MEDS: ONDANSETRON INJ 4 MG/2 ML VIAL IV PUSH (18:21)
[2024-09-22 20:01] LABS: Glucose Point of Care 159 mg/dl (65-105)
[2024-09-23] VITALS (9 sets, daily range): BP systolic 130–158; BP diastolic 85–99; PULSE 79–100; RESP 16–20; TEMP 36.2–37.1; O2SAT 93–100
[2024-09-23] MEDS: DEXTROSE 5%/0.9% SOD CHL 1,000 ML 100 ML IV CONT ×2 (00:36→10:40)
[2024-09-23 07:51] LABS: Glucose Point of Care 96 mg/dl (65-105)
[2024-09-23] MEDS: HYDROcodone/acetaminophen (*CRX) 5-325 MG TABLET 1 TAB PO ×3 (07:58→20:24)
[2024-09-23] MEDS: LIDOCAINE 5% PATCH 1 PATCH TRANSDERM (08:00)
[2024-09-23] MEDS: PANTOPRAZOLE 40 MG TABLET PO ×2 (08:14→17:23)
--- NOTE | 2024-09-23 09:04 | WPDANESPN ---
Anes - Prog Note Post-Op Date/Time: 09/23/24 09:04 Cardiovascular status: normal Respiratory status: normal Airway patency: baseline Mental status: baseline Post-Op hydration status: normal Vital Signs: Last Vital Signs Temp 36.4 C 09/23/24 08:19 Pulse 95 09/23/24 08:19 Resp 16 09/23/24 08:19 BP 138/89 09/23/24 08:19 Pulse Ox 99 09/23/24 08:19 O2 Del Method Room Air 09/23/24 07:49 O2 Flow Rate 8 09/22/24 10:20 FiO2 21 09/23/24 07:49 Pain Score (VAS): 310 I/O: Intake & Output 09/22/24 09/23/24 09/23/24 23:59 07:59 15:59 Intake Total 1480 200 240 Balance 1480 200 240 09/22/24 09/22/24 09/22/24 06:49 10:51 11:53 POC Capillary Glucose 166 H 165 H Antibody Screen Negative 09/22/24 09/22/24 09/23/24 16:18 19:56 07:42 POC Capillary Glucose 177 H 159 H 96 Antibody Screen Post-procedural complaints: none Patient Feedback: Patient satisfied with anesthetic care.
[2024-09-23 12:06] LABS: Glucose Point of Care 123 mg/dl (65-105)
--- NOTE | 2024-09-23 14:20 | P.PNGS_ITS ---
Progress Note: A&P Assessment and Plan (1) Encounter for follow-up examination after completed treatment for conditions other than malignant neoplasm: Code(s): Z09 - Encounter for follow-up examination after completed treatment for conditions other than malignant neoplasm Status: Acute Assessment and Plan: * Slowly increase activity as tolerated. Overall doing very well. Possibly home tomorrow. Will add MiraLax to prevent constipation. (2) H/O abdominal surgery: Code(s): Z98.890 - Other specified postprocedural states Status: Acute Subjective Subjective Date/Time Seen: 09/23/24 14:20 Interval history: Up ambulating. Pain controlled. Tolerating solid diet. Exam Resp: Effort & Inspection: normal respiratory effort Auscultation: clear to auscultation bilaterally Cardio: Rate: regular rate Rhythm: regular rhythm Heart sounds: S1 normal heart sound present and S2 normal heart sound present GI: Inspection: non-distended and incision (intact and dressing dry) GI Palp: Yes Soft to palpation, Yes Tenderness to palpation present (GI) (incisiona l) and No Guarding due to palpation present (GI) Auscultation: normal bowel sounds Objective Data Vital Signs Vital Signs: Vital Signs - 24 hr 09/22/24 19:50 09/22/24 21:06 09/23/24 00:00 Temperature 98.2 F 97.6 F Pulse Rate 91 96 Respiratory Rate 20 20 Blood Pressure 139/101 H 143/94 H Pulse Oximetry 100 100 Oxygen Delivery Room Air Fraction of Inspired Oxygen 09/23/24 05:39 09/23/24 07:49 09/23/24 08:19 Temperature 97.1 F L 97.6 F Pulse Rate 79 95 Respiratory Rate 18 16 Blood Pressure 143/85 H 138/89 Pulse Oximetry 99 93 99 Oxygen Delivery Room Air Fraction of Inspired Oxygen 21 09/23/24 12:08 Temperature 98 F Pulse Rate 93 Respiratory Rate 16 Blood Pressure 130/99 H Pulse Oximetry 100 Oxygen Delivery Fraction of Inspired Oxygen Intake/Output Intake/Output: Intake & Output 09/20/24 09/21/24 09/22/24 09/23/24 23:59 23:59 23:59 23:59 Intake Total 2270 1440 Balance 2270 1440 Meds/Results Medications: Active Medications Generic Name Dose Route Start Last Admin Trade Name Freq PRN Reason Stop Dose Admin Acetaminophen 1,000 mg 09/22/24 11:30 Acetaminophen 500 Mg Tablet PO Q6H PRN Mild Pain (1-3) or Fever Hydrocodone Bitart/Acetaminophen 1 tab 09/22/24 11:30 09/23/24 07:58 Hydrocodone/Acetaminophen (*Crx) 5-325 Mg Tablet PO 1 tab Q4H PRN Administration Pain Rated 4-6 Hydromorphone HCl 1 mg 09/22/24 11:30 Hydromorphone Hcl Inj (*Crx) 1 Mg/Ml Syr IV PUSH Q3H PRN Pain Rated 7-10 Lidocaine 1 patch 09/22/24 12:00 09/23/24 08:00 Lidocaine 5% Patch TRANSDERM 1 patch DAILY VERONICA Administration Ondansetron HCl 4 mg 09/22/24 11:30 09/22/24 18:21 Ondansetron Inj 4 Mg/2 Ml Vial IV PUSH 4 mg Q6H PRN Administration Nausea And Vomiting Oxycodone HCl 5 mg 09/22/24 11:30 09/22/24 16:02 Oxycodone Hcl (*Crx) 5 Mg Tab Ir PO 5 mg Q4H PRN Administration Pain Rated 7-10 Pantoprazole Sodium 40 mg 09/22/24 17:00 09/23/24 08:14 Pantoprazole 40 Mg Tablet PO 40 mg BID VERONICA Administration Rizatriptan Benzoate 5 mg 09/22/24 11:30 Rizatriptan Benzoate 5 Mg Tablet PO DAILY PRN Migraine Headache Labs Labs: Laboratory Results - last 24 hr 09/22/24 09/22/24 09/23/24 16:18 19:56 07:42 POC Capillary Glucose 177 H 159 H 96 09/23/24 11:38 POC Capillary Glucose 123 H
[2024-09-23] MEDS: polyethylene glycoL 3350 17 GM POWD.PACK PO (14:43)
[2024-09-23 17:19] LABS: Glucose Point of Care 130 mg/dl (65-105)
[2024-09-23] MEDS: oxyCODONE HCL (*CRX) 5 MG TAB IR PO ×2 (17:43→23:50)
--- NOTE | 2024-09-23 18:59 | PC.NURSE ---
On 09/23/24, the BILLING SERVICES MANAGER, Helene Irving, provided care and completed [facility] documentation on this patient. I have reviewed the BILLING SERVICES MANAGER's documentation and agree with the findings.
[2024-09-23 20:22] LABS: Glucose Point of Care 81 mg/dl (65-105)
[2024-09-23] MEDS: ONDANSETRON INJ 4 MG/2 ML VIAL IV PUSH (20:24)
[2024-09-24] MEDS: ACETAMINOPHEN 500 MG TABLET 1000 MG PO (05:13)
[2024-09-24 05:38] VITALS: BP 147/94; PULSE 80; RESP 20; TEMP 36.4; O2SAT 96
[2024-09-24 07:55] LABS: Glucose Point of Care 96 mg/dl (65-105)
[2024-09-24 08:06] VITALS: O2SAT 96
[2024-09-24] MEDS: LIDOCAINE 5% PATCH 1 PATCH TRANSDERM (09:02)
[2024-09-24] MEDS: PANTOPRAZOLE 40 MG TABLET PO (09:02)
[2024-09-24] MEDS: polyethylene glycoL 3350 17 GM POWD.PACK PO (09:03)
[2024-09-24] MEDS: oxyCODONE HCL (*CRX) 5 MG TAB IR PO (09:06)
[2024-09-24 11:40] LABS: Glucose Point of Care 106 mg/dl (65-105)
[2024-09-24 13:34] VITALS: BP 135/93; PULSE 89; RESP 18; TEMP 36.3; O2SAT 100
--- NOTE | 2024-09-24 13:52 | PM.DS ---
DS: Admitting Diagnosis Discharge Date 09/24/2024 Admitting Diagnosis Incarcerated incisional hernia DS: Discharge Diagnosis Discharge Diagnosis (1) Encounter for follow-up examination after completed treatment for conditions other than malignant neoplasm: Code(s): Z09 - Encounter for follow-up examination after completed treatment for conditions other than malignant neoplasm Status: Acute (2) H/O abdominal surgery: Code(s): Z98.890 - Other specified postprocedural states Status: Acute DS: Summary Hospital Course Reason for hospitalization: Incarcerated incisional hernia Hospital Course: This is a 49-year-old woman who presented with an incarcerated incisional hernia. She underwent open incarcerated incisional hernia repair with Phasix by resorbable mesh on 09/22/2024. She was then admitted to the hospital postoperatively for pain control and gradual advancement of diet. She was started on clear liquids and diet was advanced as tolerated. Her pain was controlled with p.o. and IV pain medications as well as lidocaine patches. On postop day 1 she was remaining hemodynamically stable and up ambulating in the halls. She had some occasional nausea but was able to tolerate solid diet. Her pain control was gradually improving. On postop day 2 she was tolerating a regular diet and pain remained adequately controlled. She was discharged on 09/24/2024. Status at Discharge Functional status at discharge: independent ambulation Overall status at discharge: patient is progressing back to baseline Time Spent with Patient Time attestation: Total time spent providing and/or coordinating discharge services: Time spent: Less than 30 minutes Exam Const: General: comfortable and no acute distress Orientation/consciousness: patient oriented x3 Resp: Effort & Inspection: normal respiratory effort Auscultation: clear to auscultation bilaterally Cardio: Rate: regular rate Rhythm: regular rhythm Heart sounds: S1 normal heart sound present and S2 normal heart sound present GI: Inspection: non-distended and incision (Intact with glue) GI Palp: Yes Soft to palpation and Yes Tenderness to palpation present (GI) (Incisional) Auscultation: normal bowel sounds DS: Data Data Completed and Pending Labs on day of discharge: Labs from last 24 hours 09/24/24 09/24/24 09/23/24 11:33 07:51 20:19 POC Capillary Glucose 106 H 96 81 09/23/24 16:43 POC Capillary Glucose 130 H Discharge Plan Discharge Attending physician on discharge: Willam Martinez Discharging Clinician: Michel Doyle Patient Disposition: Home, Self-Care Activity: other - see discharge instructions Diet: regular Wound Care Instructions: other - see discharge instructions Discharge Instructions: May discharge home in stable. Follow-up in the office with Dr. Matrinez in 2 weeks. Call [phone] for an appointment. No lifting more than 5 to 10 lb for 4 to 6 weeks. If abdominal binder is in place wear night and day for 2 weeks and then may remove at night but wear during the daytime. May shower in 24hours after surgery but no soaking incision under water for 2 weeks. Nursing to teach drain care prior to discharge if drain is present. Resume all home medications and a prescription for narcotic pain medications if needed will be sent to the patient's pharmacy. May use Tylenol and/or ibuprofen in addition to or in place of narcotic pain medications. Patient Instructions: Antibiotic Form Stand Alone Forms: General Discharge Information Follow-up/Referrals: Willam Martinez MD [Physician] - 10/10/24 9:45 am Discharge Medications: New oxycodone 5 mg tablet 5 mg PO Q4H PRN (Reason: pain) Qty: 25 0RF lidocaine 5 % adhesive patch,medicated 1 patch topical DAILY Qty: 15 0RF Rx Instructions: leave on most painful area for up to 12 hrs docusate sodium [Colace] 100 mg capsule 100 mg PO DAILY Qty: 30 1RF Continued omeprazole 20 mg capsule,delayed release(DR/EC) 20 mg PO BID rizatriptan 5 mg tablet 5 mg PO DAILY PRN (Reason: Migraine Headache) dicyclomine 10 mg capsule 10 mg PO TID PRN (Reason: Abdominal Pain) Date of admission: 09/22/24 11:30 Primary Care Provider: JefferySelene Admitting Provider: Willam Martinez Attending physician on admission: Willam Martinez Condition: Improved
[2024-09-24] MEDS: HYDROcodone/acetaminophen (*CRX) 5-325 MG TABLET 1 TAB PO (14:17)
--- NOTE | 2024-09-24 15:44 | PC.NURSE ---
On 09/24/24, the HEALTH OCCUPATIONS TEACHER, Helene Irving, provided care and completed [employer] documentation on this patient. I have reviewed the HEALTH OCCUPATIONS TEACHER's documentation and agree with the findings.
== END 2024-09-24 15:35 | disposition home or self-care (01) | DRG 355 ==
LOC: ANH3MEDSUR 17:56
PROVIDERS: Admitting Provider Surgery; PCP Physician Assistant; Visit Provider Surgery
PROC: 0WQF0ZZ Repair Abdominal Wall, Open Approach (ICD-10-PCS; principal; 2024-09-22 07:30)
DX: K43.0 Incisional hernia with obstruction, without gangrene (principal); G89.18 Other acute postprocedural pain; E66.9 Obesity, unspecified; K21.9 Gastro-esophageal reflux disease without esophagitis; M32.9 Systemic lupus erythematosus, unspecified; I73.00 Raynaud's syndrome without gangrene; Z68.38 Body mass index [BMI] 38.0-38.9, adult; Z98.84 Bariatric surgery status; Z90.49 Acquired absence of other specified parts of digestive tract
CPT/HCPCS: 36415; 82948; 86850; 86900; 86901; A9270; J0330; J0690; J1100; J1171; J1885; J2003; J2004; J2250; J2371; J2405; J2704; J3010; J7042; J7120

== ENCOUNTER 2025-05-13 11:59 | Emergency (ER) | payer OTHER, SELFPAY ==
--- NOTE | ~2025-05-13 | XR_ITS ---
Portable chest x-ray Comparison: None Clinical History: Chest pain Findings: Lungs are clear, without focal consolidation or pleural effusion. Cardiomediastinal silho uette is unremarkable. Bones and soft tissues are unremarkable. Impression: Normal chest. Reviewed, dictated and finalized at location . Impression: Normal chest.
--- NOTE | ~2025-05-13 | CT_ITS ---
Clinical Indication: Chest pain CT Scan of the Chest with Contrast: Technique: Contiguous sections were acquired throughout the chest after intravenous administration of 100 cc of Omnipaque 350. Dose reduction technique was used on this scan by utilizing automated expos ure control and iterative reconstruction technique. The dose-length product (DLP) was 373.86 mGy-cm. COMPARISON: 01/27/1944 Findings: There is no evidence of any significant mediastinal, hilar or axillary lymphadenopathy. There is no f illing defect in the pulmonary arterial tree to suggest pulmonary embolus. There is no evidence of ao rtic dissection or aneurysm. There is no evidence of pleural or pericardial effusion. The lungs are clear. No pulmonary nodules or infiltrates are noted. Images through the upper abdomen reveal no abnormalities. Impression: No evidence of pulmonary embolus, aortic dissection, or aortic aneurysm. Clear lungs. Reviewed, dictated and finalized at [facility]. Impression: No evidence of pulmonary embolus, aortic dissection, or aortic aneurysm. Clear lungs.
--- NOTE | 2025-05-13 11:59 | ECG_ITS ---
Test Date: 2025-05-13 12:08:05 Measurements Intervals [place] Rate: 99 P: 60 AR: 130 QRS: -19 QRSD: 92 T: 50 QT: 380 QTc: 488 Interpretive Statements SINUS RHYTHM CONSIDER ANTERIOR INFARCT, AGE INDETERMINATE BASELINE ARTIFACT- I, II, III, AVR, AVL, AVF, V1-V6 ABNORMAL ECG Compared to ECG 08/22/2024 23:57:50 NO SIGNIFICANT CHANGE Electronically Signed On 05-13-2025 17:18:33 CDT by Alan Chavez D.O.
[2025-05-13 12:02] VITALS: BP 117/85; PULSE 104; RESP 19; TEMP 36.8; O2SAT 100
[2025-05-13 12:14] VITALS: PULSE 101; O2SAT 100
--- NOTE | 2025-05-13 12:15 | ED.CHESTPAIN ---
HPI - Chest Pain General Chief Complaint: Chest Pain Stated Complaint: CP with nausea Time Seen by Provider: 05/13/25 11:59 History of Present Illness HPI narrative: 49-year-old female presenting to the emergency depart with chest pain. She states that started while she was using the restroom earlier today and in the center of her chest. She felt nauseous afterwards but did not vomit. No radiating chest pain, no back pain or shortness of breath. States that she has had recent hernia repairs back in August. History of gastric bypass and multiple hernia repairs. Denies any trauma or injury. No fever, chills, abdominal pain, back pain, shortness a breath, headache, vision changes. No cardiac history to her knowledge. No DVT symptoms or swelling or legs. No history of PE or DVT. Receive Zofran prior to arrival by EMS. Related Data Home Medications ?Medication ?Instructions ?Recorded ?Confirmed ?Last Taken ?Type rizatriptan 5 mg tablet 5 mg PO DAILY PRN Migraine Headache 08/02/22 01/08/25 08/09/24 History omeprazole 20 mg capsule,delayed 20 mg PO BID 08/30/24 01/08/25 Unknown History release dicyclomine 10 mg capsule 10 mg PO TID PRN Abdominal Pain 09/22/24 01/08/25 Unknown History Allergies Allergy/AdvReac Type Severity Reaction Status Date / Time koolaid Allergy Unknown Uncoded 05/13/25 12:16 Review of Systems Review of Systems: As reviewed above in HPI [facility] Past Medical History Medical History Hiatal hernia Umbilical hernia Hematemesis Erosive esophagitis Raynaud disease Lupus GERD (gastroesophageal reflux disease) Depression Anxiety Systemic lupus erythematosus Normal blood sugar Lupus (systemic lupus erythematosus) Mass on back Gastrojejunal anastomotic stricture Gastric outlet obstruction GERD (gastroesophageal reflux disease) Hypokalemia Acute kidney injury Eczema Migraines Surgical History Surgical History History of incisional hernia repair 09/22/24 Open incarcerated incisional hernia repair with Phasix bioabsorbable mesh. S/P cholecystectomy History of gastric bypass History of excision of lesion Solar lentigo from the left lateral canthus. History of ventral hernia repair (05/2016) Incarcerated ventral hernia repair with extensive adhesiolysis. 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 History of tonsillectomy History of gastric bypass (2010) x 2. History of laparoscopic cholecystectomy (2003) Family History Family History Mother Diabetes mellitus Cancer Hypertension Colon cancer Father Diabetes mellitus Hypertension FH: CABG (coronary artery bypass surgery) Sibling Hypothyroid Hypertension Mother Brain cancer Colon cancer Diabetes mellitus Hypertension Father Diabetes mellitus Hypertension H/O heart surgery Social History Social History Social History: The patient is and lives in [place] with her 2 children. 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 She designates her father, Maikel Adair, as her surrogate decision maker and she wishes to be a full code. Code status full code Smoking status: Never smoker Alcohol intake: current Drinks per week: 1 Substance use: never Substance use type: does not use Do You Feel Safe in your Home?: Yes Lack of Transportation: No Lack of Food: Sometimes True Current Housing: I Have Housing Concerned About Future Housing: No Difficulty Paying Gas/Electric Bills: YES Difficulty Paying for Meds: YES Currently Unemployed: No Education: Associate Degree Difficulty w/ Childcare or Family Care: No Living arrangements: with family Spiritual care concerns: No Exam Narrative: GENERAL: Uncomfortable appearing but not any acute physical distress, answering questions appropriately. Morbidly obese HEAD: [Normocephalic, atraumatic.] EYES: [PERRLA and EOMI.] ENT: Nares clear, no rhinorrhea or epistaxis. Mucous membranes moist. NECK: Supple. CHEST: [Clear to auscultation. No respiratory distress.] HEART: [Regular rate and rhythm]. No murmur heard. [Normal peripheral pulses.] ABDOMEN: [Soft, nondistended], [nontender], [No rigidity or guarding] EXTREMITIES: Normal range of motion. [No edema.] SKIN: Warm, dry, no rash. NEURO: [No focal deficits]. Alert and oriented [x3.] PSYCH: [Normal mood and affect.] Course Vital Signs Vital signs: Vital Signs Temperature 36.8 C 05/13/25 12:02 Pulse Rate 104 H 05/13/25 12:02 Respiratory Rate 19 05/13/25 12:02 Blood Pressure 117/85 05/13/25 12:02 Pulse Oximetry 100 05/13/25 12:02 Oxygen Delivery Room Air 05/13/25 12:02 Temperature 36.8 C 05/13/25 12:02 Pulse Rate 89 05/13/25 14:26 Respiratory Rate 19 05/13/25 14:26 Blood Pressure 133/71 05/13/25 14:26 Pulse Oximetry 98 05/13/25 14:26 Oxygen Delivery Room Air 05/13/25 12:14 MDM - Chest Pain MDM Narrative Medical decision making narrative: 49-year-old female presenting with chest discomfort near the center of her chest. Nonradiating with associated nausea. No back pain, fever, chills, abdominal pain, headache, vision changes. No trauma or injury. Mildly tachycardic with a pulse of 104 but normal vital signs otherwise without any fever, hypoxia, tachypnea or blood pressure concerns. Strong symmetric pulses, no signs of DVT in examination. Differential includes gastritis, gastroenteritis, peptic ulcer disease, hiatal hernia, musculoskeletal chest pain, ACS, thromboembolic event such as PE, low suspicion aortic process. Patient given morphine Pepcid and Zofran as well as fluids and laboratory studies were ordered including CBC, CMP, lipase, troponin, EKG, chest x-ray. A CT angiography of the chest was ordered. Patient's laboratories are reassuring without any leukocytosis or anemia. Normal platelet count. Normal coagulation panel. Electrolytes are largely unremarkable. Mildly elevated anion gap. Normal creatinine, normal glucose, unremarkable LFTs. Negative troponin. Negative lipase. CT angiography of the chest shows no PE dissection, aneurysm and otherwise clear lungs with imaging throughout the upper abdomen revealing no abdominal anomalies. Chest x-ray shows no acute findings. Patient was re-evaluated had symptomatic resolution of felt markedly improved. Unclear the cause of patient's symptomatology but given her unremarkable workup and clinical improvement I believe she can be safely discharged with regular primary care provider follow-up. Patient was comfortable with this plan. She was given some prescriptions for symptom control and safely discharged.. Medical Records Data Attestation: I reviewed the patient's medical records. Lab Data Attestation: I reviewed the patient's lab results. 05/13/25 12:10 05/13/25 12:10 Labs: Lab Results 05/13/25 Range/Units 12:10 WBC 7.6 (4.5-10.0) K/mm3 RBC 4.83 (4.2-5.4) M/mm3 Hgb 15.4 H (12.0-15.0) g/dL Hct 44.4 (37.0-47.0) % MCV 91.9 (80-100) fl MCH 31.9 (26-34) pg MCHC 34.7 (32-36) g/dl RDW 12.0 (11.5-14.5) % Plt Count 266 (150-375) k/mm3 MPV 8.7 (7.4-10.4) fl Immature Gran % (Auto) 0.4 (0-0.5) % Neut % (Auto) 50.4 (45.5-73.1) % Lymph % (Auto) 43.5 (18.3-44.2) % Harmon % (Auto) 4.5 (2.6-8.5) % Eos % (Auto) 0.4 (0-4.4) % Baso % (Auto) 0.8 (0.2-1.2) % Lymph # (Auto) 3.32 H (0.9-3.2) K/mm3 Harmon # (Auto) 0.3 (0.1-0.6) K/mm3 Eos # (Auto) 0.0 (0-0.3) K/mm3 Baso # (Auto) 0.1 (0.0-0.1) K/mm3 Abs Immat Gran (auto) 0.03 (0.00-0.031) K/mm3 Absolute Neuts (auto) 3.9 (1.3-6.7) K/mm3 Absolute Nucleated RBC 0.000 (0.0-0.012) K/mm3 Nucleated RBC % 0.0 (0.0-0.2) % PT 13.9 (11.1-14.7) Seconds INR 1.1 APTT 26.8 (22.3-36.8) Seconds Sodium 138 (137-145) mmol/L Potassium 4.4 (3.4-5.0) mmol/L Chloride 98 (98-107) mmol/L Carbon Dioxide 21 L (22-30) mmol/L Anion Gap 19 H (4-12) mmol/L BUN 14 (7-17) mg/dL Creatinine 0.65 L (0.7-1.0) mg/dL Estim Creat Clear Calc Not Reportable Estimated GFR > 60 (59 - ) Glucose 125 H (65-110) mg/dL Calcium 9.5 (8.4-10.2) mg/dL Total Bilirubin 0.6 (0.2-1.3) mg/dL AST 41 H (14-36) U/L ALT 24 (6-35) U/L Alkaline Phosphatase 108 (38-126) U/L Troponin I < 0.012 (0.000-0.034) ng/mL Total Protein 8.3 H (6.3-8.2) g/dL Albumin 4.8 (3.5-5.1) g/dL Lipase 62 (23-300) U/L Imaging Data Attestation: I personally reviewed and interpreted this imaging study as follows: My impression: Impressions Chest X-Ray 05/13/25 12:36 Impression: Normal chest. Chest CTA 05/13/25 13:17 Impression: No evidence of pulmonary embolus, aortic dissection, or aortic aneurysm. Clear lungs. ECG Data EKG #1: Attestation: I personally reviewed and interpreted this ECG as follows: ECG completion date: 05/13/25 ECG completion time: 12:08 Prior ECG tracings: available for review Interpretation: No ST segment elevations, depressions or acute inversions. Poor baseline artifact but no overt anomalies. QTC of 488, QRS 92, rate of 99 beats per minute. CA interval 130. Compared to previous EKG no significant oval change per Discharge Plan Discharge Clinical Impression: Chest pain, Chest pain, musculoskeletal Patient Disposition: Home Condition: Stable Instructions: Antibiotic Form, Chest Pain (ED), Chest Wall Pain (ED) Additional Instructions: Follow-up with regular primary care provider, return with any urgent or emergent concerns. Will prescribe some medications for symptom control. Patient Language: Romanian Prescriptions: New methocarbamol 750 mg tablet 750 mg PO TID PRN (Reason: pain) Qty: 20 0RF lidocaine 5 % adhesive patch,medicated 1 patch topical DAILY Qty: 15 0RF Rx Instructions: leave on most painful area for up to 12 hrs ondansetron 4 mg tablet,disintegrating 4 mg PO Q8H PRN (Reason: nausea and vomiting) Qty: 20 0RF No Action omeprazole 20 mg capsule,delayed release(DR/EC) 20 mg PO BID rizatriptan 5 mg tablet 5 mg PO DAILY PRN (Reason: Migraine Headache) dicyclomine 10 mg capsule 10 mg PO TID PRN (Reason: Abdominal Pain) docusate sodium [Colace] 100 mg capsule 100 mg PO DAILY Qty: 30 1RF (DME) Dexcom G7 Sensor Device See Rx Instructions .Route Qty: 9 0RF Rx Instructions: change every 10 days Follow-up/Referrals: Luis,NITA Moeller [Primary Care Provider] - Stand Alone Forms: Work/School Release IP Time of Disposition: 14:21 Quality HEART score for chest pain patients History: slightly suspicious ECG: normal Age: > 45 and < 65 years Risk factors: 1 or 2 risk factors Troponin: < or = to 1x normal limit Heart score: 2
[2025-05-13 12:16] LABS: Basophils Absolute Auto 0.1 K/mm3 (0.0-0.1); Basophils Percent Auto 0.8 % (0.2-1.2); Eosinophils Percent Auto 0.4 % (0-4.4); Hematocrit 44.4 % (37.0-47.0); Hemoglobin 15.4 g/dL (12.0-15.0); Immature Granulocyte Absolute 0.03 K/mm3 (0.00-0.031); Immature Granulocyte Percent A 0.4 % (0-0.5); Lymphocytes Absolute Auto 3.32 K/mm3 (0.9-3.2); Lymphocytes Percent Auto 43.5 % (18.3-44.2); Mean Corpuscular HGB Conc 34.7 g/dl (32-36); Mean Corpuscular Hemoglobin 31.9 pg (26-34); Mean Corpuscular Volume 91.9 fl (80-100); Mean Platelet Volume 8.7 fl (7.4-10.4); Monocytes Absolute Auto 0.3 K/mm3 (0.1-0.6); Monocytes Percent Auto 4.5 % (2.6-8.5); Neutrophils Absolute Auto 3.9 K/mm3 (1.3-6.7); Neutrophils Percent Auto 50.4 % (45.5-73.1); Platelet Count Result 266 k/mm3 (150-375); Red Blood Count 4.83 M/mm3 (4.2-5.4); White Blood Count 7.6 K/mm3 (4.5-10.0)
[2025-05-13] MEDS: LACTATED RINGERS 1,000 ML 999 ML IV CONT (12:22)
[2025-05-13] MEDS: ONDANSETRON INJ 4 MG/2 ML VIAL IV PUSH (12:22)
[2025-05-13] MEDS: ASPIRIN 81 MG CHEWABLE TABLET 324 MG PO (12:23)
[2025-05-13] MEDS: MORPHINE SULFATE (*CRX) 4 MG/ML INJ IV PUSH (12:23)
[2025-05-13] MEDS: FAMOTIDINE 20 MG TABLET PO (12:23)
--- OUTSIDE RECORDS SUMMARY | 2025-05-13 12:25 | XMS_ITS | Clinical Summary ---
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 Gender Identity Not on file Sexual Orientation Not on file Plan of Treatment Health Maintenance Due Date Last Done Comments Hepatitis C Virus (HCV) Screening 1976 TdaP Immunization 1976 Hepatitis B Immunization (1 of 3 - 19+ 3-dose series) 1995 Colonoscopy 2021 Colorectal Cancer Screening 2021 SARS-COV-2 Immunization ( season) 2024 09/08/2021, 02/28/2021, 02/07/2021 Influenza Immunization (Seas on Ended) 2025 08/09/2019, 12/22/2017 Respiratory Syncytial Virus (RSV) Immunization (Adult) (1 - 1-dose 75+ series) 2051 Human Papillomavirus (HPV) Immunization Aged Out No longer eligible b ased on patient's age to complete this topic Meningococcal Immunization (ACWY) Aged Out No longer eligible b ased on patient's age to complete this topic Pneumococcal Immunization Combined Aged Out No longer eligible b ased on patient's age to complete this topic Rotavirus Immunization Aged Out No lo nger eligible based on patient's age to complete this topic
--- OUTSIDE RECORDS SUMMARY | 2025-05-13 12:25 | XMS_ITS | Clinical Summary ---
Author Organization [facility] Home Care [facility] Address [address] [place] [address] Phone Care Team Providers Care Slip Tender Name Role Phone Patricia Loyd MD Unavailable [phone] Ryan Snyder MD Unavailable [phone] Selene Smith Primary Care Provider + Allergies No known active allergies Medications ergocalciferol, vitamin D2, 10 mcg (400 unit) tablet Take 1,250 Units by mouth once a week Active FLUoxetine (PROzac) 10 mg tablet/capsuleIndi cations:Anxiety with Depression Take 1 tablet/capsule (10 mg total) by mouth contact manager before breakfast Active TPN AT DISCHARGE Infuse into a venous catheter continuously See AVS for most recent TPN formula. Infuse over 12 hours nightly via PICC line 1 Package 07/29/20 20 Active heparin 10 unit/mL syringeIndications :Maintain Patency of Indwelling Vascular Catheter Administer 5 mL (50 Units total) into catheter every 12 (twelve) hours 07/29/20 20 Active nystatin 100,000 unit/mL suspensionIndicati ons:gastrointestin al candidiasis,oral candidiasis Take 5 mL (500,000 Units total) by mouth 4 (four) times a day 250 mL 1 08/14/20 20 Active docusate sodium (COLACE) 100 mg capsuleIndications :constipation Take 1 capsule (100 mg total) by mouth 2 (two) times a day 30 capsule 08/27/20 20 Active multivitamin tabletIndications: Vitamin Deficiency Prevention Take 1 tablet by mouth 2 (two) times a day 60 tablet 5 08/27/20 20 Active lidocaine (Salonpas, lidocaine,) 4 % adhesive patch,medicated Place 1 patch on the skin daily 10 patch 08/27/20 20 Active oxyCODONE (ROXICODONE) 5 mg immediate release tabletIndications: Pain Take 1 tablet (5 mg total) by mouth every 6 (six) hours as needed for pain 10 tablet 08/27/20 20 Active oxyCODONE (ROXICODONE) 5 mg immediate release tabletIndications: Pain Take 1 tablet (5 mg total) by mouth every 4 (four) hours as needed for pain 10 tablet 09/08/20 20 Active sodium chloride 0.9% injection Infuse 10 mL into a venous catheter daily Active acetaminophen (TYLENOL) 500 mg tablet 08/27/20 20 Active calcium carbonate-vitamin D3 250-125 mg-unit tablet 08/27/20 20 Active cyanocobalamin, vitamin B-12, 500 mcg tablet,disintegrat ingIndications:Pre vention of Vitamin B12 Deficiency [address] 500 mcg under the tongue daily 30 each 5 10/01/20 20 Active omeprazole (PriLOSEC) 40 mg capsule Take 1 capsule (40 mg total) by mouth daily 30 capsule 08/09/20 24 025 Active ondansetron ODT (ZOFRAN-ODT) 4 mg disintegrating tablet Take 1 tablet (4 mg total) by mouth every 4 (four) hours as needed for nausea or vomiting 20 tablet 08/09/20 24 Active Active Problems Problem Noted Date Diagnosed Date Abdominal pain 03/07/2024 Cyst of ovary 02/21/2024 Abnormal uterine bleeding (AUB) 02/21/2024 Severe protein-calorie malnutrition 07/26/2020 Postsurgical malabsorption 07/26/2020 Essential hypertension 07/26/2020 Vitamin D deficiency 07/26/2020 H/O gastric bypass 07/25/2020 Overview (07/25/2020): 2011 x2 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 08/20/2016 Resolved Problems Problem Noted Date Diagnosed Date Resolved Date Anastomotic stricture of gastrojejunostomy 08/14/2020 10/01/2020 Overview (08/14/2020): Added automatically from request for surgery [id number] 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 Overview (08/02/2020): Added automatically from request for surgery [id number] Gastric anastomotic stricture 07/25/2020 08/14/2020 Immunizations Immunization Administration Dates Next Due Influenza, Quadrivalent, Spl it, Preservative Free, Intramuscular 08/29/2020 Surgical History Surgery Date Site/Laterality Comments GASTRIC BYPASS 11/29/2010 - 11/28/2011 c/b anastamotic leak and revision CHOLECYSTECTOMY TONSILLECTOMY VENTRAL HERNIA REPAIR 11/29/2015 - 11/28/2016 UPPER GASTROINTESTINAL ENDOSCOPY Medical History Medical History Date Comments 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 TPN Hypoglycemia Family History Medical History Relation Name Comments Colon cancer Mother Ovarian cancer Mother's Sister Anesthesia problems Neg Hx Raynaud syndrome Neg Hx Rheumatologic disease Neg Hx Relation Name Status Comments Mother Mother's Sister Alive Social History Tobacco Use Types Packs/Day Years Used Date Smoking Tobacco: Never Smokeless Tobacco: Never Tobacco Cessation:Counseling Given: Not Answered Alcohol Use Standard Drinks/Week Comments Not Currently 0 (1 standard drink = 0.6 oz pur e alcohol) AUDIT-C Answer Date Recorded Q1: How often do you have a drink containing alc ohol? Never 08/20/2020 Average Number of Drinks Not on file 020 Frequency of Binge Drinking Not on file 07/31 Personal Safety Answer Date Recorded Have you ever been in or are you currently in a harmful physical or emotional relationship or is someone making you feel afraid or unsafe? Denies 08/08/2024 Comments No Sex and Gender Information Value Date Recorded Sex Assigned at Not on file Legal Sex Female 4:49 PM CDT Gender Identity Female 08/19/2020 9:40 AM CDT Sexual Orientation Straight 08/19/2020 9: 40 AM CDT Obstetrics History Para Term AB IAB SAB Ectopic Multiple Livin g Live Births 2 2 0 0 0 0 0 0 0 0 0 Date Outcome GA Total Labor Labor/2nd/3rd Weight Sex Type Anes PTL Yi A1 A5 Name Clin Para Para Last Filed Vital Signs Vital Sign Reading Time Taken Comments Blood Pressure 158/100 08/08/2024 10:45 PM CDT Pulse 81 08/08/2024 10:45 PM CDT Temperature 36.8 C (98.2 F) 08/08/2024 10:45 PM CDT Respiratory Rate 23 08/08/2024 10:45 PM CDT Oxygen Saturation 98% 08/08/2024 10:45 PM CDT Inhaled Oxygen Concentration - - Weight 98 kg (216 lb 0.8 oz) 08/08/2024 10:45 PM CDT Height 157.5 cm (5' 2) 08/08/2024 10:45 PM CDT Body Mass Index 39.52 08/08/2024 10:45 PM CDT Plan of Treatment Health Maintenance Due Date Last Done Comments Cervical Cancer Screening 1976 Colon Cancer Screening-Colonoscopy 1976 Depression Screening 1976 Hepatitis C Screening 1976 DTaP/Tdap/Td Vaccine (1 - Tdap) 1987 Hepatitis B Screening 1994 Regular Well Visit/Exam 18-64 1994 Breast Cancer Screening-Mammogram 03/31/2024 03/31/2023, 03/31/2023 Covid-19 Vaccine ( season) 2024 09/08/2021 Influenza Vaccine (Season Ended) 2025 08/06/2023, 09/01/2022, 08/29/2020, Additional history exists Pneumococcal vaccine <65 Aged Out No longer eligible based on patient's age to complete this topic Insurance Member Subscriber Plan / Payer (Ef fective 2023-Present) Name:AdairNara Relation to Subscriber:Self Name:Mana Nara A Payer ID:[id number] (NAIC) Type:[facility] Address: [address] [place] [address] [facility] [employer] [facility] Advance Directives For more information, please contact: [phone] * Full Code (Latest Code Status on File) Date Activated Date Inactivated Comments 08/23/2020 5:02 PM 09/08/2020 10:37 PM * Full Code Date Activated Date Inactivated Comments 08/14/2020 7:17 AM 08/14/2020 1:44 PM * Full Code Date Activated Date Inactivated Comments 07/26/2020 2:27 PM 08/02/2020 8:30 PM * Full Code Date Activated Date Inactivated Comments 07/25/2020 8:36 PM 07/26/2020 2:27 PM Care Teams Slip Tender Relationship Specialty Start Date End Date Selene Smith PA [address] [place] [address] PCP - General Physician Vegetable Harvest Worker 02/24/24 Patricia Loyd MD Referring Physician General Surgery 08/06/20 Ryan Snyder MD [address] [place] [address] Obstetrics and Gynecology 02/21/24
--- OUTSIDE RECORDS SUMMARY | 2025-05-13 12:26 | XMS_ITS | Clinical Summary ---
Author Organization [facility] [employer] Address [address] [place] [address] Care Team Providers Care Inside Sales Account Representative Name Role Phone Bruno Gabriel MD Unavailable [phone] Selene Smith PA-C Primary Care Provider Source Comments [facility] [employer],non-owned Affiliates and Associated Physician Practices is amultiple site organization consisting of ambulatory clinics and hospital sitesin [place], [place], [place] and [place]. This disclosure is being madepursuant to the Care Everywhere program and may not contain all information available regarding this patient. Last updated 18.[facility] [employer] Allergies No known active allergies Medications * Be aware that medications may not be up to date on this document. Alwaysverify current medications with the patient. acetaminophen (TYLENOL) 500 MG tablet 0 Active Calcium Carb-Cholecalci ferol (CALCIUM-VITAMI N D3) 250-125 MG-UNIT TABS 0 Active vitamin D, ergocalciferol, (DRISDOL) 1.25 MG (65431 UT) capsule TAKE 1 CAPSULE BY MOUTH WEEKLY 1 Active Multiple Vitamin (MULTI-VITAMIN) TABS Take 1 (one) tablet by mouth 2 times daily 0 Active omeprazole (PRILOSEC) 20 MG capsule TK 1 C PO QD AC 0 Active Snover-3 Fatty Acids (FISH OIL PO) Take 1 tablet by mouth once daily Active amitriptyline (ELAVIL) 10 MG tabletIndicatio ns:Intractable migraine without aura and with status migrainosus Take 1 (one) tablet by mouth every evening 90 tablet 3 1 Active rizatriptan (MAXALT) 5 MG tabletIndicatio ns:Intractable migraine without aura and with status migrainosus Take 1 tab by mouth once at first sign of migraine. May repeat one time after 2 hours if needed. 9 tablet 11 1 Active Additional Information Patient not taking.Reported on 01/27/2023 buPROPion (WELLBUTRIN) 75 MG tablet Take 1 (one) tablet by mouth 2 times daily 180 tablet 1 Active Cholecalciferol (VITAMIN D3) 1.25 MG (86956 UT) capsule Take 1 (one) capsule by mouth every 7 days 12 capsule 1 1 Active cyanocobalamin (VITAMIN B-12) 1000 MCG tablet Take 1 (one) tablet by mouth once daily 100 tablet 1 Active sildenafil (REVATIO) 20 MG tablet Take 1 (one) tablet by mouth 2 times daily as needed 60 tablet 3 1 Active Additional Information Patient not taking.Reported on 01/27/2023 hydroxychloroqu ine (PLAQUENIL) 200 MG tablet TAKE 2 TABLETS BY MOUTH EVERY DAY 180 tablet 2 Active potassium chloride ER (Klor-Con M) 20 MEQ tablet TAKE 1 TABLET BY MOUTH TWICE DAILY FOR 14 DAYS 2 Active FLUoxetine (PROzac) 60 MG tablet 2 Active predniSONE (Deltasone) 2.5 MG tablet Take 2.5 mg by mouth once daily 2 Active phentermine (Ionamine) 15 MG capsule 2 Active Lancets (ONETOUCH DELICA PLUS 33G EXTRA FINE LANCET) 2 Active ibuprofen (Motrin) 800 MG tablet Take 1 (one) tablet by mouth every 8 hours 2 Active OneTouch Verio test strip 2 Active Allergy Relief 180 MG tablet 1 Active glucose (Dex4) 4 g chew tablet CHEW AND SWALLOW 1 TABLET BY MOUTH EVERY 15 MINUTES NEEDED FOR HYPOGLYCEMIA UNTIL SYMPTOMS OF LOW BLOOD SUGAR ARE CONTROLLED 2 Active Blood Glucose Monitoring Suppl ([employer] Verio Reflect) w/Device KIT as directed 2 Active triamcinolone acetonide (Kenalog) 0.1 % cream Apply to affected area 2 times daily 45 g 3 3 Active Active Problems No known active problems Social History Tobacco Use Types Packs/Day Years Used Date Smoking Tobacco: Never Smokeless Tobacco: Never Tobacco Cessation:Counseling Given: No Alcohol Use Standard Drinks/Week Comments Yes 0 (1 standard drink = 0.6 oz pur e alcohol) very occasionally Comments No Sex and Gender Information Value Date Recorded Sex Assigned at Not on file Legal Sex Female 5:33 AM [employer] Gender Identity Not on file Sexual Orientation Not on file Last Filed Vital Signs Vital Sign Reading Time Taken Comments Blood Pressure 110/80 01/27/2023 4:22 PM [employer]STRUCTION TE[employer] Pulse 78 01/27/2023 4:22 PM [employer]STRUCTION TE[employer] Temperature 36.7 C (98 F) 01/27/2023 4:22 PM CONSTRUCTION TECH Respiratory Rate 16 01/27/2023 4:22 PM CONSTRUCTION TECH Oxygen Saturation 98% 01/27/2023 4:22 PM CONSTRUCTION TECH Inhaled Oxygen Concentration - - Weight 107 kg (236 lb) 01/27/2023 4:22 PM CONSTRUCTION TECH Height 165.1 cm (5' 5) 01/27/2023 4:22 PM CONSTRUCTION TECH Body Mass Index 39.27 01/27/2023 4:22 PM CONSTRUCTION TECH Plan of Treatment Health Maintenance Due Date Last Done Comments COLOGUARD (AGES 45-75) - COL ON CA SCREENING 1976 COLON MONITORING 1976 COLONOSCOPY - COLON CA SCREENING 1976 CT COLONOGRAPHY - COLON CA SCREENING 1976 Colorectal Cancer Screening 1976 FIT - COLON CA SCREENING 1976 FLEX SIG - COLON CA SCREENING 1976 LIPID TESTING 1976 MAMMOGRAM 1976 PAP SMEAR 1976 HIV SCREENING 1991 HEPATITIS C SCREENING 07/06/1994 DTAP/TDAP/TD VACCINES (1 - Tdap) 1995 HEPATITIS B VACCINE (1 of 3 - 19+ 3-dose series) 1995 COVID-19 VACCINE (2 - 2023-2 5 season) 2024 09/08/2021 DEPRESSION SCREENING 11/29/2024 INFLUENZA VACCINE (Season Ended) 2025 09/01/2022, 08/29/2020 ZOSTER VACCINE (1 of 2) 2026 HIB VACCINE Aged Out No longer eligi ble based on patient's age to complete this topic HPV VACCINE Aged Out No longer eligi ble based on patient's age to complete this topic MENINGOCOCCAL (Group B) VACCINE SHARED DECISION-MAKING Aged Out No longer eligible based on patient's age to complete this topic MENINGOCOCCAL GROUPS A/C/Y/W VACCINE Aged Out No longer eligible b ased on patient's age to complete this topic PNEUMOCOCCAL VACCINE Aged Out No long er eligible based on patient's age to complete this topic Insurance [facility] [employer] [facility] [employer] [facility] [place] [address] [place] [address] Care Teams Inside Sales Account Representative Relationship Specialty Start Date End Date Selene Smith PA-C [address] [place] [id number] PCP - General Physician Neuro Urologist 09/09/22 Bruno Gabriel MD [address] [place] [address] 07/26/20
--- OUTSIDE RECORDS SUMMARY | 2025-05-13 12:26 | XMS_ITS | Data Portability ---
Author Organization [facility] [place] Address [address] [place] [address] Assessment No assessment recorded. Plan of Treatment Reminders Order Date Submit Date Provider Last Modified By Organization Details Last Modified Time Details Appointments None recorded. Lab CBC w/ auto diff 2023 024 [facility] (Lab), [address] [place], [address], 4 03:28:36 ca 125, serum 2023 024 [facility] (Lab), [address] [place], [address], 4 03:28:37 cancer Ag 19-9, serum or plasma 2023 024 [facility] (Lab), [address] [place], [address], 4 03:28:39 carcinoembr yonic Ag, quant, serum or plasma 2023 024 [facility] (Lab), [address] [place], [address], 4 03:28:37 hormone panel, serum or plasma 2023 024 [facility] (Lab), [address] [place], [address], 4 03:28:38 HbA1c (hemoglobin A1c), blood 2023 024 [facility] (Lab), [address] [facility], [place], [address], 4 03:28:38 TSH, serum or plasma 2023 024 [facility] (Lab), [address] [facility], [place], [address], 4 03:28:37 test, urine 2022 023 [facility], [facility] [place][note 2] [address], [place], [address], 3 17:44:00 Referral None recorded. Procedures None recorded. Surgeries None recorded. Imaging US, pelvis [address], [facility] [place][note 2] [address], [place], [address], 4 21:05:54 US, transvagina l [address], [facility] [place][note 2] [address], [place], [address], 4 21:05:54 Medication Orders None recorded. Patient TargetsNo targets recorded. Patient InstructionsNo instructions recorded. Reason for Referral None Reported. Results Created Date Observation Date Name Description Value Unit Range Abnormal Flag Note LastModifiedBy Organization Detail LastModifiedTime 11/17/20 23 11/17/2023 [facility]GI [facility] PATHO LOGY surgical pathology SEE RESULT S BELOW CASE REPOR T: Surgi blanca Patho logy Repor t Case: [id number] Autho jacob pink Provi nohemi: Sarah Dawson MD Colle cted: 11/17 1741 Order ing Locat ion: [place] Patho logy Recei john paul: 11/18 0048 Patho logis t: Angelina bahena , Rosa M Terry MD Speci men: Endom etriu m FINAL DIAGN OSIS: Endom etriu m, biops y: -Diso rdere d proli ferat glen endom etriu m, negat glen for hyper plasi a and carci noma. Elect huanconner white leonel d by Angelina bahena , Rosa M Terry MD on 11/18 at 1:34 PM ----- ----- ----- ----- ----- ----- ----- ----- ----- ----- ----- ----- ----- ----- ----- ----- ----- ---- CLINI [facility] INFOR MATIO N: n93.9 MICRO SCOPI C DESCR IPTIO N: A micro scopi c exami natio n was perfo rmed. GROSS DESCR IPTIO N: A. Endom etriu m. The speci men is label ed with the patie nt's name, demog raphi cs and endo metri um. Recei john paul in forma francisco is a 2.5 x 2.0 x 0.5 cm aggre gate of dark red tissu e. The entir e speci men is submi tted in one casse tte. Gross ed by [employer] Not Available [facility] (Lab) [address] [facility], [place], [address], 11/18/2023 14:39:04 11/17/20 23 11/17/2023 IMAGE GUIDE D PAP AND HPV REGAR DLESS image guided Pap, HPV regardless of Pap result SEE RESULT S BELOW CASE REPOR T: Cytol ogy Gynec ologi blanca Repor t Case: [id number] Autho jacob pink Provi nohemi: Sarah Dawson MD Colle cted: 11/17 1738 Order ing Locat ion: [place] Patho logy Recei john paul: 11/18 0402 First Scree n: Serene Loomis , CT Rescr een: McBrgino de, Sari ret, CT Speci men: Scree sherry Pap - Image d, Cervi x STATE MENT OF ADEQU ACY: Satis facto ry for evalu ation Trans forma tion zone compo nent prese nt FINAL DIAGN OSIS: Negat glen for Intra epith elial Lesio n or Cholo finney (NIL) . Elect dirk white leonel d by Sari Rose ret, CT on 11/19 at 3:16 PM ----- ----- ----- ----- ----- ----- ----- ----- ----- ----- ----- ----- ----- ----- ----- ----- ----- ---- HPV RESUL TS: HPV mRNA E6/E7 : No HPV mRNA Detec shira NOTE: This high risk HPV mRNA assay detec ts fourt een high- risk HPV types (16, 18, 31, 33, 35, 39, 45, 51, 52, 56, 58, 59, 66, 68) witho ut diffe renti ation . COMME NT: This speci men was revie wed by a Cytot echno logis t and/o r Patho logis t (as indic ated in this repor t) after evalu ation using the Thinp rep Imagi ng Syste m. CLINI BLAN[facility] INFOR MATIO N: Menst rual Statu s: LMP (if appli cable ): Clini [facility]anca Histo ry/Pr eviou s Pap: Type of Neopl cal (if appli cable ): Signi fican t Clini blanca Findi ngs: Other Histo ry: Hormo amelie (if appli cable ): PAP EDUCA WALDEMAR L NOTE: The Pap Test is a scree sherry test with an inher ent false negat glen rate. Liqui d-bas ed sampl ing may decre ase, but will not elimi rodríguez, false negat glen resul ts. A negat glen resul t does not precl ude the prese nce and/o r devel opmen t of disea se, since the prese nce of abnor mal cells in the sampl e depen ds on the locat ion of the lesio n and sampl ing techn ique. Sofia nued regul ar scree sherry is the best metho d of cance r preve ntion . If repor shira cytol ogic findi ng do not corre late with physi blanca and/o r histo rical findi ngs, furth er inves tigat ion is recom dara d, as clini senia thao nted. Not Available [facility] (Lab) [address], [place], [address], 11/19/2023 16:20:03 11/17/20 23 11/17/2023 pregn aranza test, urine HCG negati ve Not Available [facility] [address], [place], [address], 11/17/2023 17:43:43 12/22/19 24 12/22/2023 CBC W/DIF F WBC 6.8 10'3/ uL 3.6-[address] [facility] (Lab) [address], [place], [address], 12/23/2023 03:28:36 12/22/19 24 12/22/2023 CBC W/DIF F RBC 4.37 10'6/ uL (based on docume nted legal sex) 4.10-[address] [facility] (Lab) [address], [place], [address], 12/23/2023 03:28:36 12/22/19 24 12/22/2023 CBC W/DIF F HGB 13.7 g/dL (based on docume nted legal sex) 11.9-[address] [facility] (Lab) [address], [place], [address], 12/23/2023 03:28:36 12/22/19 24 12/22/2023 CBC W/DIF F HCT 41.1 % (based on docume nted legal sex) 37.4-[address] [facility] (Lab) [address] [facility], [place], [address], 12/23/2023 03:28:36 12/22/19 24 12/22/2023 CBC W/DIF F MCV 94.1 fL 82.0-[address] [facility] (Lab) [address] [facility], [place], [address], 12/23/2023 03:28:36 12/22/19 24 12/22/2023 CBC W/DIF F MCH 31.4 pg 27.0-[address] [facility] (Lab) [address] [facility], [place], [address], 12/23/2023 03:28:36 12/22/19 24 12/22/2023 CBC W/DIF F MCHC 33.3 g/dL 32.0-[address] [facility] (Lab) [address] [facility], [place], [address], 12/23/2023 03:28:36 12/22/19 24 12/22/2023 CBC W/DIF F RDW 12.5 % 11.0-[address] [facility] (Lab) [address] [facility], [place], [address], 12/23/2023 03:28:36 12/22/19 24 12/22/2023 CBC W/DIF F plt 291 10'3/ uL 150-[address] [facility] (Lab) [address] [facility], [place], [address], 12/23/2023 03:28:36 12/22/19 24 12/22/2023 CBC W/DIF F MPV 9.2 fL 9.8-12 .[address] [facility] (Lab) [address] [facility], [place], [address], 12/23/2023 03:28:36 12/22/19 12/22/2023 CBC W/DIF F NRBC's 0.0 % [address] [facility] (Lab) [address] [facility], [place], [address], 12/23/2023 03:28:36 12/22/19 24 12/22/2023 CBC W/DIF F absolute NRBCs 0.0 10'3/ uL [address] [facility] (Lab) [address] [facility], [place], [address], 12/23/2023 03:28:36 12/22/19 24 12/22/2023 CBC W/DIF F neutrophils 42.8 % 37.0-[address] [facility] (Lab) [address] [facility], [place], [address], 12/23/2023 03:28:36 12/22/19 24 12/22/2023 CBC W/DIF F lymphocytes 50.7 % 16.0-4 [address] [facility] (Lab) [address] [facility], [place], [address], 12/23/2023 03:28:36 12/22/19 24 12/22/2023 CBC W/DIF F monocytes 5.3 % 4.0-[address] [facility] (Lab) [address] [facility], [place], [address], 12/23/2023 03:28:36 12/22/19 24 12/22/2023 CBC W/DIF F eosinophils 0.4 % 0.0-9. [address] [facility] (Lab) [address] [facility], [place], [address], 12/23/2023 03:28:36 12/22/19 24 12/22/2023 CBC W/DIF F basophils 0.7 % 0.0-2. [address] [facility] (Lab) [address] [place], [address], 12/23/2023 03:28:36 12/22/19 24 12/22/2023 CBC W/DIF F immature granulocytes 0.1 % no define d refere nce range Not Available [facility] (Lab) [address] [facility], [place], [address], 12/23/2023 03:28:36 12/22/19 24 12/22/2023 CBC W/DIF F absolute neutrophils 2.9 10'3/ uL 1.1-6. [address] [facility] (Lab) [address] [place], [address], 12/23/2023 03:28:36 12/22/19 24 12/22/2023 CBC W/DIF F absolute lymphocytes 3.5 10'3/ uL 0.7-3. [address] [facility] (Lab) [address] [facility], [place], [address], 12/23/2023 03:28:36 12/22/19 24 12/22/2023 CBC W/DIF F absolute monocytes 0.4 10'3/ uL 0.3-1. [address] [facility] (Lab) [address] [facility], [place], [address], 12/23/2023 03:28:36 12/22/19 24 12/22/2023 CBC W/DIF F absolute eosinophils 0.0 10'3/ uL 0.0-0. [address] [facility] (Lab) [address] [place], [address], 12/23/2023 03:28:36 12/22/19 24 12/22/2023 CBC W/DIF F absolute basophils 0.1 10'3/ uL 0.0-0. [address] [facility] (Lab) [address] [place], [address], 12/23/2023 03:28:36 12/22/19 24 12/22/2023 CBC W/DIF F absolute immature granulocytes 0.0 10'3/ uL 0.00-0 .10 2023 1:59 AM: P indic ates parti al resul ts on a panel have been relea sed. Addit ional resul ts will follo w. 2023 1:59 AM: This resul t has been final verif ied. No addit ional or bañuelos ed resul ts are expec shira. Not Available [facility] (Lab) [address] [facility], [place], [address], 12/23/2023 03:28:36 12/22/1912/22/2023 CA 125 Ca 125 18.0 units /mL 0.0-35 .0 This assay was perfo rmed using [employer] n reage nts and test kits. Value s obtai katie with other assay metho ds or kits canno t be used inter [facility] . Not Available [facility] (Lab) [address] [facility], [place], [address], 12/23/2023 03:28:37 12/22/1912/22/2023 CEA cea 2.3 NG/mL 0.0-3. 0 This assay was perfo rmed using [employer] reage nts and test kits. Value s obtai katie with other assay metho ds or kits canno t be used inter [facility] . Not Available [facility] (Lab) [address] [facility], [place], [address], 12/23/2023 03:28:37 12/22/1912/22/2023 TSH TSH 2.53 uIU/m L 0.30-[address] [facility] (Lab) [address] [facility], [place], [address], 12/23/2023 03:28:37 12/22/19 24 12/22/2023 FSH, LH, ESTRA DIOL estradiol 21.0 pg/mL This assay was perfo rmed using [employer] reage nts and test kits. Value s obtai katie with other assay metho ds or kits canno t be used inter [facility] . Femal e Estra diol Range s: Folli cular phase 12.4- 233 pg/mL Ovula tion phase 41.0- 398 pg/mL Lutea l phase 22.3- 341 pg/mL Postm enopa usal< 5-138 pg/mL Healt hy Pregn ant Women 1st Trime ster1 54-32 43 pg/mL 2nd Trime ster1 561-2 1280 pg/mL 3rd Trime ster8 525-> 10106 pg/mL Not Available [facility] (Lab) [address] [facility], [place], [address], 12/23/2023 03:28:38 12/22/19 24 12/22/2023 FSH, LH, ESTRA DIOL FSH 38.4 mIU/m L This assay was perfo rmed using [employer] reage nts and test kits. Value s obtai katie with other assay metho ds or kits canno t be used inter [facility] . Femal es Folli cular : 3.5-1 2.5 mIU/m L Ovula tion: 4.7-2 1.5 mIU/m L Lutea l: 1.7-7 .7 mIU/m L Postm enopa use: 25.8- 134.8 mIU/m L Not Available [facility] (Lab) [address] [facility], [place], [address], 12/23/2023 03:28:38 12/22/19 24 12/22/2023 FSH, LH, ESTRA DIOL LH 23.5 mIU/m L This assay was perfo rmed using [employer] reage nts and test kits. Value s obtai katie with other assay metho ds or kits canno t be used inter [facility] e[facility] . Femal es Mid-F ollic ular: 2.4-1 2.6 mIU/m L Mid-C ycle: 14.0- 95.6 mIU/m L Mid-L uteal : 1.0-1 1.4 mIU/m L Postm enopa use: 7.7-5 8.5 mIU/m L Not Available [facility] (Lab) [address] [facility], [place], [address], 12/23/2023 03:28:38 12/22/19 24 12/22/2023 HEMOG LOBIN A1C hemoglobin A1C 5.0 % 0-5.6 The Ameri can Diabe oziel [employer] iatio n recom mends that a prima ry goal of thera py padillaul d be a HBA1C of < 7% and that physi cians shoul d reeva luate the treat ment regim en in patie nts with HBA1C value s consi stent ly > 8%. <5.7% Etelvina l 5.7 - 6.4% Incre ased risk for diabe oziel >=6.5 % Diagn ostic of diabe oziel <7.0% Goal of thera py >8.0% Actio n sugge sted Not Available [facility] (Lab) [address] [facility], [place], [address], 12/23/2023 03:28:38 12/22/19 24 12/22/2023 CARBO HYDRA TE ANTIG EN 19-9 Ca 19-9 <2 U/mL 0-35 This assay was perfo rmed using [employer] reage nts and test kits. Value s obtai katie with other assay metho ds or kits canno t be used inter [facility] eably . Not Available [facility] (Lab) [address] [facility], [place], [address], 12/23/2023 03:28:38 12/21/19 24 12/21/2023 US, pelvi s No observ ation record ed. [facility] [address], [place], [address], 12/21/2023 18:20:25 12/21/19 24 12/21/2023 US, trans vagin al No observ ation record ed. [facility] [address], [place], [address], 12/21/2023 18:20:39 12/21/19 24 12/21/2023 US, kiya cooney No observ ation record ed. [email or web address] [address], [place], [address], 12/22/2023 23:27:45 Result Notes None recorded. Procedures Surgical History Date Name Laterality Status Provider Name and Address Organization Details Recorded Time 11/17/20 Endometrial Biopsy completed WISAM MACIAS MD [address], [place], [address], [facility] 11/23/2023 13:24:42 11/29/19 22 Date of Last Pap Smear completed [facility] 11/17/2023 16:33:05 11/29/[address] [facility] 11/17/2023 16:45:38 11/29/19 03 procedure on gallbladder completed [facility] 11/17/2023 16:45:00 Imaging Results None recorded. Procedure Notes None recorded. Medical Equipment None Reported. Allergies No known drug allergies Medications Name Sig Start Date Stop Date Status Note LastModified by Organization Details LastModified Time medroxyprog esterone 10 mg tablet TAKE 1 TABLET BY MOUTH ONCE DAILY FOR 10 DAYS active Not Available Not Available No t Available prednisone 10 mg tablet TAKE 1 TABLET BY MOUTH EVERY DAY FOR 7 DAYS. RESUME BASELINE DOSE OF 2.5 MG DAILY 11/17 completed Not Available Not Available Not Available doxycycline hyclate 100 mg capsule TAKE 1 CAPSULE BY MOUTH TWICE DAILY FOR 7 DAYS active Not Available Not Available No t Available meloxicam 15 mg tablet TAKE 1 TABLET BY MOUTH ONCE DAILY FOR 14 DAYS 11/17 completed Not Available Not Available Not Available metronidazo le 0.75 % (37.5 mg/5 gram) vaginal gel 11/17 completed Not Available Not Available Not Available phentermine 15 mg capsule TAKE 1 CAPSULE BY MOUTH ONCE DAILY 11/17 completed Not Available Not Available Not Available triamcinolo ne acetonide 0.1 % topical cream APPLY TOPICALLY TO THE AFFECTED AREA TWICE DAILY 11/17 completed Not Available Not Available Not Available meclizine 25 mg tablet TAKE 1 TABLET BY MOUTH TWICE DAILY NEEDED FOR DIZZINESS active Not Available Not Available No t Available ondansetron 4 mg disintegrat ing tablet active Not Available Not Available N ot Available phentermine 37.5 mg capsule TAKE 1 CAPSULE BY MOUTH ONCE DAILY active Not Available Not Available No t Available amoxicillin 875 mg-potassiu m clavulanate 125 mg tablet TAKE 1 TABLET BY MOUTH EVERY 12 HOURS FOR 7 DAYS active Not Available Not Available No t Available acarbose 25 mg tablet TAKE 1 TABLET BY MOUTH 4 TIMES DAILY WITH FIRST BITE OF EACH MEAL active Not Available Not Available No t Available OneTouch Verio test strips USE 1 STRIP TO CHECK GLUCOSE THREE TIMES DAILY TO 4 TIMES DAILY active Not Available Not Available No t Available OneTouch Delica Plus Lancet 33 gauge USE 1 TO CHECK GLUCOSE THREE TIMES DAILY TO 4 TIMES DAILY active Not Available Not Available No t Available Baqsimi 3 mg/actuatio n nasal spray USE 1 SPRAY NASALLY ONCE NEEDED FOR HYPOGLYCE LAI A SINGLE DOSE 11/17 completed Not Available Not Available Not Available Dexcom G7 Sensor device USE DIRECTED active Not Available Not Available No t Available Vitals Date Recorded Body height Body mass index (BMI) Body weight Systolic blood pressure Diastolic blood pressure Provider Name and Address Organization Details Last Updated DateTime 12/22/2023 160.02 cm 40.3 kg/m2 447090.9 g 130 mm[Hg] 96 mm[Hg] [facility] 4 09:32:02 Date Recorded Body height Body mass index (BMI) Body weight Systolic blood pressure Diastolic blood pressure Provider Name and Address Organization Details Last Updated DateTime 11/17/2023 160.02 cm 42.3 kg/m2 888766.1 4 g 144 mm[Hg] 84 mm[Hg] [facility] 3 16:42:12 Social History None recorded. Functional Status None recorded. Mental Status None recorded. Family History Relationship Description Onset Age of this Age Resolved Age Notes LastModified by Organization Details LastModified Time Mother Malignant tumor of colon dswayne Not available 2022 16:43:39 Mother Diabetes mellitus dswayne Not available 2022 16:43:53 Mother Essential hypertension dswayne Not available 16:44:13 Mother Malignant neoplasm of brain dswayne Not available 2022 16:44:39 Father Diabetes mellitus dswayne Not available 2022 16:43:53 Father Essential hypertension dswayne Not available 16:44:13 Sister Disorder of thyroid gland dswayne Not available 2022 16:44:26 Medical History Condition Response Allergies (Food, seasonal, environmental ) N Other N Breast Cancer N Drug/Latex Allergies/Reactions N Blood Transfusion N Dermatologic Disorders N Lung Disease N Defects or Inherited Disease N Breast Problem N Gestational Diabetes N Hematologic disorders N Anesthesia Complications N History of STI N Deep Vein Thrombosis N Polycystic ovary syndrome N Anxiety Disorder N Autoimmune disease N Arthritis N Infertility N Polyps N Acid Reflux (GERD) N History of abnormal pap N Cancer N Stroke N Varicosities N Neurologic/Epilepsy N Endometriosis N High Cholesterol N Headaches N Fibromyalgia N Kidney Disease N Heart Problems N Kidney or Bladder Problems N Thyroid Problems N GI Problems N Eating Disorder N Anemia N Art (IVF or FET) N Psychiatric Illness N Ovarian Cancer N Diabetes N Pulmonary (TB, Asthma) N Hepatitis/Liver Disease N No Past Medical History N Eczema N Urinary Tract Infection N Abuse/Domestic Violence N Asthma N Trauma/Violence N Depression/ depression N Heart Disease N Pre-Eclampsia N Hypertension N Osteoporosis N Thrombophilias N Gynecological History Statement/Question Response Date of LMP 10/26/2023 Sexually Active? Y STIs/STDs N HPV Vaccine N Date of Last Pap Smear 11/29/2021 Sexual Problems? N Current Control Method None Desired Control Method None LMP Definite Obstetrics History GPAL:G 2 P 2 0 0 2 Type Value Full Term 2 Living 2 Total 2 Past Encounters Encounter ID Performer Location Encounter Start Date Encounter Closed Date Diagnosis/Indication Diagnosis SNOMED-CT Code Diagnosis ICD10 Code Diagnosis Note [id number] WISAM MACIAS MD [facility] [address] [address] 11/17/2023 16:06:09 11/24/2023 11:37:59 Screening procedure 28705089 Z13.9 Postmenopa usal bleeding 75725535 N95.0 - patient reports amenorrhea x2 years, then had heavy bleeding in September- no further bleeding episodes since that time- no recent hormone replacemen t, new medication s- EMS 20mm on outside US- discussed need for endometria l sampling with EMB, r/b/a discussed and patient consented. Procedure performed as documented . Patient tolerated the procedure well.- will follow up on EMB results as available. [id number] Gerardo Firas MD [facility] [address] [address] 12/21/2023 14:29:52 12/21/2023 15:31:32 Abnormal uterine bleeding 2344554014 9100 N93.9 [id number] WISAM MACIAS MD [facility] [address] [address] 12/22/2023 09:24:51 12/23/2023 08:52:54 Cyst of ovary 72162759 N83.209 - bilateral tubular cystic structures on pelvic US- denies worsening abdominal pain, no hx of ovarian cysts- bilateral ovarian cysts vs hydrosalpi nx- will check tumor markers- recommend repeat US in 1 month to reevaluate cystic structures - discussed diagnostic laparoscop y with removal of cystic structures if persistent Abnormal u terine bleeding 9781027338 9100 N93.9 - EMS decreased in size from 20mm to 5mm, small amount of fluid in cavity- continue to monitor bleeding, will check labwork for perimenopa usal status Health Concerns Section Related Observation LastModified by Organization Detai ls LastModified Time None Recorded Concern Status LastModified by Organization Details LastModified Time None Recorded Advance Directives Directive None Recorded Payers Insurance Date Sequence Insurance Name Policy Number Policy Ramírez Covered Member ID Ramírez Member ID Guarantor Name 01/31/2024 1 [employer] [id number] 3 Nara Adair [id number] Nara Adair 12/22/2023 1 [place] [facility] (EPO) [id number] 3 Nara Adair [id number] Nara Adair 11/17/2023 1 [place] [id number] 1 Nara Adair [id number] Nara Adair 01/30/2024 2 [facility] - DOS ON OR AFTER 21 (MEDICAID REPLACEMENT - HMO) Nara Adair [id number] Nara Adair Notes Date Note Type Note Provider Name and Address Organization Details Recorded Time 11/17/2023 text/html Presents to establish care and evaluation for postmenopausal bleeding. SHe reports perimenopausal symptoms and has been amenorrheic x 2 years. However reports she had irregular periods prior to that. She then had what would have been a normal period in September 2023 which lasted about 8 days, heavy, no cramping. No change in activity. Was seen in the ED and US was performed, demonstrating a 20mm heterogenous endometrial stripe, as well as a 2.1cm intramural fibroid. No obvious ovarian abnormalities. No hx of OPHTHALMIC AIDE issues. No hx of hormone therapy or recent contraceptive use. Had gastric bypass x2. Mother with hx of colon cancer, patient up to date on colon cancer screening. No family hx of OPHTHALMIC AIDE cancers. 2021- last pap, unsure of results WISAM MACIAS MD [address], [place], [address], [facility] 11/23/2023 13:27:30 12/22/2023 text/html Patient presents for follow up of ultrasound. Patient seen previously for irregular bleeding, with no periods x2 years, followed by a heavy period in September. Pelvic US in 10/2023 demonstrated 20mm endometrial stripe and EMB showed disordered proliferative endometrium. She was given a course of Provera and had a heavy period following that. She reports bleeding has improved, now spotting. No pelvic pain. US also demonstrated tubular cystic structures bilaterally, however it was difficult to visualize on previous US. No hx of ovarian cysts or pelvic pain. WISAM MACIAS MD [address], [place], [address], [facility] 12/22/2023 21:25:48 OBGyn Episode Ob Episode Information Episode Created Date Number of Fetuses Patient Bloodtype Patient rh Status Prepregnancy Weight lbs Domestic Partner Domestic Partner Phone Father Name Ear Nose Throat Physician Status 11/17/20 23 1 CLOSED Fetus Data First Name Last Name Admitted to NICU Weight (g) Sex Living Outcome Pediatric Complications Fetus ID Race Codes Race Delivery Type 2919.77 [id number] Full Term [id number] Vaginal Delivery Arpan Calculation Initial Arpan Date Initial Exam Date Initial Exam Provider Initial Ultrasound Date Last Menstrual Period Date Ultra Sound Weeks Gestation 0 Eighteen To Twenty Week Arpan Update Ultra Sound Date Fundal Height At Umbil Quickening Date Ultra Sound Latest Weeks Gestation Final Arpan Confirmed By Final Arpan Confirmed Date Final Arpan Date Ultra Sound Latest Days Gestation 0 0 Menstrual History Last Menstrual Date Menses Monthly On Bcp Conception Prior Menses Frequency Hcg Plus Date Menarche Onset Age Delivery Information Delivery Date Delivery Type Labor Anesthesia Weeks Gestation Incision Type Labor Labor Length Hrs Delivered By Post Complications Tubal Sterilization Discharge Date Comments 0 40 Discharge Information Feeding Method Contraceptive Method Maternal HG B and HCT Levels Ob Episode Information Episode Created Date Number of Fetuses Patient Bloodtype Patient rh Status Prepregnancy Weight lbs Domestic Partner Domestic Partner Phone Father Name Ear Nose Throat Physician Status 11/17/20 23 1 CLOSED Fetus Data First Name Last Name Admitted to NICU Weight (g) Sex Living Outcome Pediatric Complications Fetus ID Race Codes Race Delivery Type 3401.94 Full Term [id number] Vaginal Delivery Arpan Calculation Initial Arpan Date Initial Exam Date Initial Exam Provider Initial Ultrasound Date Last Menstrual Period Date Ultra Sound Weeks Gestation 0 Eighteen To Twenty Week Arpan Update Ultra Sound Date Fundal Height At Umbil Quickening Date Ultra Sound Latest Weeks Gestation Final Arpan Confirmed By Final Arpan Confirmed Date Final Arpan Date Ultra Sound Latest Days Gestation 0 0 Menstrual History Last Menstrual Date Menses Monthly On Bcp Conception Prior Menses Frequency Hcg Plus Date Menarche Onset Age Delivery Information Delivery Date Delivery Type Labor Anesthesia Weeks Gestation Incision Type Labor Labor Length Hrs Delivered By Post Complications Tubal Sterilization Discharge Date Comments 4 40 Discharge Information Feeding Method Contraceptive Method Maternal HG B and HCT Levels
--- OUTSIDE RECORDS SUMMARY | 2025-05-13 12:26 | XMS_ITS | Clinical Summary ---
Author Organization 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 90 Tablet 1 03/09/2025 3:01 PM CDT 02/27/2025 06/07/20 25 Active venlafaxine (EFFEXOR XR) 37.5 mg Extended Release 24 hour capsule Take 1 Capsule (37.5 mg) by mouth daily. 90 Capsule 1 03/09/2025 3:01 PM CDT 02/27/2025 06/07/20 25 Active Active Problems No known active problems Encounters Date Type Department Care Team Description 04/19/2025 External Device Data [facility]CTION Provider, Abstract 04/17/2025 External Device Data [facility] Provider, Abstract 03/13/2025 External Device Data [facility] Provider, Abstract 02/27/2025 7:45 AM CDT Office Visit [facility] [address] [facility] [address] [place] [address] Alessandra Adam, OD Hyperopia of both eyes (Primary Dx); Astigmatism of right eye, unspecified type; Presbyopia of both eyes 02/14/2025 External Device Data [facility] ABSTRACTION Provider, Abstract from Last 3 Months Immunizations Immunization Administration Dates Next Due Influenza Seasonal Unspecifi ed Formulation IM 09/05/2024,08/06/2023,09/01/2022 Social History Tobacco Use Types Packs/Day Years Used Date Smoking Tobacco: Unknown Tobacco Cessation:Counseling Given: Not Answered Comments Unknown Sex and Gender Information Value Date Recorded Sex Assigned at Female 09/01/2024 9:10 AM CDT Legal Sex Female 2:52 PM CDT Gender Identity Female 09/01/2024 9:10 AM CDT Sexual Orientation Not on file Plan of Treatment Health Maintenance Due Date Last Done Comments Pre-Diabetes and Diabetes Screening 1976 HEPATITIS B VACCINES (1 of 3 - 19+ 3-dose series) 1995 HPV/Cotest (21-29) 1997 HPV/Cotest (30-65) 2006 COLORECTAL SCREENING 2021 Colorectal Cancer Screening 2021 FIT-DNA Q 3 years 2021 FIT/FOBT Q 1 year 2021 Flex Sig/CT Colonography Q 5 years 2021 BREAST CANCER SCREENING 03/31/2024 03/31/20 23, 03/31/2023, 03/31/2023 COVID-19 Vaccine (2023-2 5 season) 2024 11/15/2021, 09/08/2021, 02/28/2021 CERVICAL CANCER SCREENING 11/17/2026 PAP SMEAR 11/17/2026 11/17/2023 DTAP/TDAP/TD VACCINES (2 - T d or Tdap) 12/07/2031 12/07/2021 INFLUENZA VACCINE Completed 09/05/2024, , 09/01/2022, Additional history exists Procedures Procedure Name Priority Date/Time Associated Diagnosis Comments MAMMO 3D PEARL SCREEN BILAT W OR WO CAD Routine 03/31/2023 4:17 PM CDT Breast cancer screening by mammogram from Last 3 Months or Most Recently Relevant to Health Maintenance Results * MAMMO SCRN BILAT 3D PEARL W OR WO CAD (03/31/2023 4:17 PM CDT) Anatomical Region Laterality Modality Breast Bilateral Mammography 03/31/2023 4:17 PM CDT Impressions 04/01/2023 12:43 PM CDT IMPRESSION: Negative bilateral screening mammogram. Recommend routine followup. OVERALL FINAL ASSESSMENT: BI-RADS CATEGORY 1: Negative DICTATION LOCATION: [facility] Narrative 04/01/2023 12:43 PM CDT BILATERAL SCREENING DIGITAL MAMMOGRAM WITH 3D TOMOSYNTHESIS AND CAD DATE: 03/31/2023 4:17 PM HISTORY: Annual screening study. COMPARISON: Baseline TECHNIQUE: A bilateral screening mammogram was performed. Low-dose full-field digital breast tomosynthesis examination was performed with 2D and 3D acquisitions. Examination is read in conjunction with computer aided detection. BREAST COMPOSITION: There are scattered areas of fibroglandular density. FINDINGS: No new masses, suspicious calcifications, or areas of asymmetry or distortion are identified. The images were reviewed using the CAD system. Procedure Note Melina Hinson MD - 04/01/2023 BILATERAL SCREENING DIGITAL MAMMOGRAM WITH 3D TOMOSYNTHESIS AND CAD DATE: 03/31/2023 4:17 PM HISTORY: Annual screening study. COMPARISON: Baseline TECHNIQUE: A bilateral screening mammogram was performed. Low-dose full-field digital breast tomosynthesis examination was performed with 2D and 3D acquisitions. Examination is read in conjunction with computer aided detection. BREAST COMPOSITION: There are scattered areas of fibroglandular density. FINDINGS: No new masses, suspicious calcifications, or areas of asymmetry or distortion are identified. The images were reviewed using the CAD system. IMPRESSION: Negative bilateral screening mammogram. Recommend routine followup. OVERALL FINAL ASSESSMENT: BI-RADS CATEGORY 1: Negative DICTATION LOCATION: [facility] us External Provider [facility] MAMMO ORDERABLES Final R esult from Last 3 Months or Most Recently Relevant to Health Maintenance Insurance [employer] Member Subscriber Plan / Payer ( fective 2025-Present) Name:Nara Adair Relation to Subscriber:Self Name:Adair, Nara Subscriber ID:Not on file Payer ID:Not on file Type:Not on file Address: [address]
--- OUTSIDE RECORDS SUMMARY | 2025-05-13 12:26 | XMS_ITS | Referral Summary ---
Author Organization [facility] Home Care [facility] Address [address] [place] [address] Phone Care Team Providers Care Associate Account Executive Name Role Phone Patricia Loyd MD Unavailable [phone] Ryan Snyder MD Unavailable [phone] Selene Smith Primary Care Provider + Allergies No known active allergies Medications ergocalciferol, vitamin D2, 10 mcg (400 unit) tablet Take 1,250 Units by mouth once a week Active FLUoxetine (PROzac) 10 mg tablet/capsuleIndi cations:Anxiety with Depression Take 1 tablet/capsule (10 mg total) by mouth admissions representative before breakfast Active TPN AT DISCHARGE Infuse [...] (08/14/2020): Added automatically from request for surgery [id number] 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 Overview (08/02/2020): Added automatically from request for surgery [id number] Gastric anastomotic stricture 07/25/2020 08/14/2020 Immunizations Immunization Administration Dates Next Due Influenza, Quadrivalent, Spl it, Preservative Free, Intramuscular 08/29/2020 Social History Tobacco Use Types Packs/Day Years [...] Orientation Straight 08/19/2020 9: 40 AM CDT Last Filed Vital Signs Vital Sign Reading [...] 08/08/2024 10:45 PM CDT Plan of Treatment Not on file Insurance [facility] [place] [address] [address] [address] [facility] [place] [address] [place] [address] [facility] Advance Directives For more information, please contact: [phone] * Full Code (Latest Code Status on File) Date Activated Date Inactivated Comments 08/23/2020 5:02 PM 09/08/2020 10:37 PM * Full Code Date Activated Date Inactivated Comments 08/14/2020 7:17 AM 08/14/2020 1:44 PM * Full Code Date Activated Date Inactivated Comments 07/26/2020 2:27 PM 08/02/2020 8:30 PM * Full Code Date Activated Date Inactivated Comments 07/25/2020 8:36 PM 07/26/2020 2:27 PM Care Teams Associate Account Executive Relationship Specialty Start Date End Date Selene Smith PA [address] [place] [address] PCP - General Physician Electric 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
[2025-05-13 12:28] LABS: INR 1.1; Prothrombin Time 13.9 Seconds (11.1-14.7)
[2025-05-13 12:29] LABS: Partial Thromboplastin Time 26.8 Seconds (22.3-36.8)
[2025-05-13 12:31] LABS: Alanine Aminotransferase 24 U/L (6-35); Albumin Level 4.8 g/dL (3.5-5.1); Alkaline Phosphatase 108 U/L (38-126); Anion Gap 19 mmol/L (4-12); Aspartate Amino Transferase 41 U/L (14-36); Bilirubin,Total 0.6 mg/dL (0.2-1.3); Blood Urea Nitrogen 14 mg/dL (7-17); Calcium 9.5 mg/dL (8.4-10.2); Carbon Dioxide 21 mmol/L (22-30); Chloride 98 mmol/L (98-107); Estimated Glomerular Filt Rate > 60; Glucose 125 mg/dL (65-110); Lipase 62 U/L (23-300); Potassium 4.4 mmol/L (3.4-5.0); Sodium 138 mmol/L (137-145); Total Protein 8.3 g/dL (6.3-8.2)
[2025-05-13 12:38] LABS: Troponin I < 0.012 ng/mL (0.000-0.034)
[2025-05-13 13:18] VITALS: BP 124/110; PULSE 91; RESP 20; O2SAT 96
[2025-05-13 14:26] VITALS: BP 133/71; PULSE 89; RESP 19; O2SAT 98
== END 2025-05-13 14:38 | disposition home or self-care (01) ==
PROVIDERS: Emergency Provider Student in an Organized Health Care Education/Training Program; PCP Physician Assistant
DX: R07.89 Other chest pain (principal); I73.00 Raynaud's syndrome without gangrene; K21.9 Gastro-esophageal reflux disease without esophagitis; K44.9 Diaphragmatic hernia without obstruction or gangrene; M32.9 Systemic lupus erythematosus, unspecified; F41.9 Anxiety disorder, unspecified; Z90.49 Acquired absence of other specified parts of digestive tract; Z98.84 Bariatric surgery status
CPT/HCPCS: 36415; 71045; 71275; 80053; 83690; 84484; 85025; 85610; 85730; 93005; 96361; 96374; 96375; 99284; A9270; J2270; J2405; J7120; Q9967